=== PATIENT | male | born 1940 | race Caucasian/White ===

== ENCOUNTER 2024-07-23 02:49 | Inpatient (IN) | payer MEDICARE, BC ==
[2024-07-23] MEDS ORDERED: HEPARIN SODIUM 1,000 UN/ML (10ML VL) IV PRN (02:52)
[2024-07-23] MEDS ORDERED: MORPHINE SULFATE 4 MG/ML SYRINGE IV PRN (02:52)
--- NOTE | 2024-07-23 02:55 | ED ---
Chest Pain HPI - General Stated Complaint: chest pain Time Seen by Provider: 07/23/24 02:52 Source: RN notes reviewed, old records reviewed Mode of arrival: EMS Limitations: no limitations - History of Present Illness Initial Comments: This is an 84 male to ER patient presents by EMS for chest pain chest pain evaluation with persistent chest pain that woke him up from sleep. History of high blood pressure no history of heart disease MD Complaint: chest pain -: hour(s) Onset: awoke with symptoms Pain Location: substernal, left chest Pain Radiation: LUE Severity: severe Severity scale (1-10): 8 Quality: tightness, heaviness Consistency: constant Improves With: nothing Worsens With: nothing Anginal Symptoms: sense of impending doom Other Symptoms: palpitations Treatments Prior to Arrival: none - Related Data Home Medications Medication Instructions Recorded Confirmed Ergocalciferol (Vitamin D2) 1,250 mcg PO Q14D 07/23/24 07/23/24 [Drisdol (50,000 Iu)] NIFEdipine XL [Procardia Xl] 30 mg PO DAILY 07/23/24 07/23/24 Simvastatin [Zocor] 20 mg PO HS 07/23/24 07/23/24 Tamsulosin [Flomax] 0.4 mg PO HS 07/23/24 07/23/24 Ubidecarenone [Q-Sorb Co Q-10] 200 mg PO DAILY 07/23/24 07/23/24 Vit C/E/Zn/Coppr/Lutein/Zeaxan 1 cap PO DAILY 07/23/24 07/23/24 [Preservision Areds 2 Softgel] atenoloL 100 mg PO DAILY 07/23/24 07/23/24 lisinopriL [Zestril] 20 mg PO DAILY 07/23/24 07/23/24 Allergies Allergy/AdvReac Type Severity Reaction Status Date / Time No Known Allergies Allergy Verified 07/23/24 09:24 Review of Systems ROS Statement: Those systems with pertinent positive or pertinent negative responses have been documented in the HPI. ROS Other: All systems not noted in ROS Statement are negative. EKG Findings - EKG Comments: EKG Findings:: EKG is ST elevated [place] rate [address] elevation 2 3 aVF reciprocal depression anterior root QRS 97 QTc 447 - EKG Results: EKG: interpreted by ERMD EKG shows: bradycardia General Exam General appearance: alert, in no apparent distress Head exam: Present: atraumatic, normocephalic, normal inspection Eye exam: Present: normal appearance, PERRL, EOMI. Absent: scleral icterus, conjunctival injection, periorbital swelling ENT exam: Present: normal exam, mucous membranes moist Neck exam: Present: normal inspection. Absent: tenderness, meningismus, lymphadenopathy Respiratory exam: Present: normal lung sounds bilaterally. Absent: respiratory distress, wheezes, rales, rhonchi, stridor Cardiovascular Exam: Present: regular rate, normal rhythm, normal heart sounds. Absent: systolic murmur, diastolic murmur, rubs, gallop, clicks GI/Abdominal exam: Present: soft, normal bowel sounds. Absent: distended, tenderness, guarding, rebound, rigid Extremities exam: Present: normal inspection, full ROM, normal capillary refill. Absent: tenderness, pedal edema, joint swelling, calf tenderness Back exam: Present: normal inspection Neurological exam: Present: alert, oriented X3, CN II-XII intact Psychiatric exam: Present: normal affect, normal mood Skin exam: Present: warm, dry, intact, normal color. Absent: rash Course Vital Signs 07/23/24 07/23/24 07/23/24 02:50 02:55 03:01 Temperature 97.6 F Pulse Rate 47 L 48 L 49 L Respiratory 18 18 18 Rate Blood Pressure 120/61 122/52 122/53 O2 Sat by Pulse 99 97 97 Oximetry 07/23/24 07/23/24 07/23/24 03:05 03:10 03:15 Temperature Pulse Rate 53 L 46 L 44 L Respiratory 16 18 16 Rate Blood Pressure 105/46 99/49 98/50 O2 Sat by Pulse 98 97 98 Oximetry 07/23/24 03:20 Temperature Pulse Rate 47 L Respiratory 16 Rate Blood Pressure 103/67 O2 Sat by Pulse 97 Oximetry - Reevaluation(s) Reevaluation #1: 07/23/24 03:22 Medical records reviewed Reevaluation #2: 07/23/24 03:22 Patient still with chest pain here in the ER Reevaluation #3: 07/23/24 03:23 Patient informed of results questions answered Reevaluation #4: Was pt. sent in by a medical professional or institution (, PA, SENIOR MOBILE WEB DEVELOPER, urgent care, hospital, or usp...) When possible be specific @ -no Did you speak to anyone other than the patient for history (EMS, parent, family, police, friend...)? What history was obtained from this source @ -no Did you review nursing and triage notes (agree or disagree)? Why? @ -agree Are old charts reviewed (outside hosp., previous admission, EMS record, old EKG, old radiological studies, urgent care reports/EKG's, usp records)? Report findings @ -yes Differential Diagnosis (chest pain, altered mental status, abdominal pain women, abdominal pain men, vaginal bleeding, weakness, fever, dyspnea, syncope, headache, dizziness, GI bleed, back pain, seizure, CVA, palpatations, mental health, musculoskeletal)? @ -prior EKG interpreted by me (3pts min.). @ -yes X-rays interpreted by me (1pt min.). @ -yes negative for acute disease CT interpreted by me (1pt min.). @ -no U/S interpreted by me (1pt. min.). @ -no What testing was considered but not performed or refused? (CT, X-rays, U/S, labs)? Why? @ -none What meds were considered but not given or refused? Why? @ -none Did you discuss the management of the patient with other professionals (professionals i.e. , PA, SENIOR MOBILE WEB DEVELOPER, lab, RT, psych nurse, aids social worker, rehab consultant, te acher, chief sustainability officer, case manager specialist)? Give summary @ -no Was smoking cessation discussed for >3mins.? @ -no Was critical care preformed (if so, how long)? @ -yes31 Were there social determinants of health that impacted care today? How? (Homelessness, low income, unemployed, alcoholism, drug addiction, transportation, low edu. Level, literacy, decrease access to med. care, [facility], rehab)? @ -none Was there de-escalation of care discussed even if they declined (Discuss DNR or withdrawal of care, Hospice)? DNR status @ -no What co-morbidities impacted this encounter? (DM, HTN, Smoking, COPD, CAD, Cancer, CVA, ARF, Chemo, Hep., AIDS, mental health diagnosis, sleep apnea, morbid obesity)? @ -none Was patient admitted / discharged? Hospital course, mention meds given and route, prescriptions, significant lab abnormalities, going to OR and other pertinent info. @ - 84 male with history of high blood pressure coming in for acute ST elevated [place] chest pain awoke from sleep patient going to the cardiac Plant Security Guard Admitted Undiagnosed new problem with uncertain prognosis? @ -no Drug Therapy requiring intensive monitoring for toxicity (Heparin, Nitro, Insulin, Cardizem)? @ -no Were any procedures done? @ -no Diagnosis/symptom? @ -STEMI Acute, or Chronic, or Acute on Chronic? @ -Acute Uncomplicated (without systemic symptoms) or Complicated (systemic symptoms)? @ -Complicated Side effects of treatment? @ -no Exacerbation, Progression, or Severe Exacerbation? @ -exacerbation Poses a threat to life or bodily function? How? (Chest pain, [place], [place], pneumonia, PE, COPD, DKA, ARF, appy, cholecystitis, CVA, Diverticulitis, Homicidal, Suicidal, threat to staff... and all critical care pts) @ -yes acute ACS Reevaluation #5: Differential Chest Pain: Stable Angina, Unstable Angina, STEMI, NSTEMI Aortic Dissection, Pneumothorax, Musculoskeletal, Esophageal Spasm GERD, Cholecystitis, Pancreatitis, Zoster, this is not meant to be an all-inclusive list. - Consultations Consultation #1: Spoke with [facility] who agrees to admit this patient Chest Pain MDM - [facility] 84 male with history of high blood pressure coming in for acute ST elevated [place] chest pain awoke from sleep patient going to the cardiac Plant Security Guard Critical Care Time Critical Care Time: Yes Total Critical Care Time: 31 Disposition Clinical Impression: Chest pain, ST elevation myocardial infarction (STEMI) Disposition: ADMITTED IP TO THIS HOSP Condition: Serious Is patient prescribed a controlled substance at d/c from ED?: No Time of Disposition: 03:00
[2024-07-23] MEDS: ASPIRIN 81 MG PO STA (02:58)
[2024-07-23] MEDS: NITROGLYCERIN OINT 1 INCH/GM PACKET TOPICAL STA (02:59)
[2024-07-23] MEDS: ATORVASTATIN 80 MG TAB PO STA (02:59)
[2024-07-23] MEDS: MORPHINE SULFATE 4 MG/ML SYRINGE IV STA (02:59)
[2024-07-23] MEDS: HEPARIN SODIUM 1,000 UN/ML (10ML VL) IV ONE ×2 (03:00→03:48)
[2024-07-23 03:12] LABS: Basophils % (A) 0.6 %; Eosinophils # (A) 0.55 10*3/uL (0.04-0.35); Eosinophils % (A) 3.3 %; HCT 36.8 % (39.6-50.0); HGB 12.7 g/dL (13.0-17.0); Lymphocytes # (A) 4.69 10*3/uL (0.90-5.00); Lymphocytes % (A) 28.2 %; MCH 30.5 pg (27.0-32.0); MCHC 34.5 g/dL (32.0-37.0); MCV 88.5 fL (80.0-97.0); Mean Platelet Volume 9.2 fL (9.5-12.2); Monocytes # (A) 1.41 10*3/uL (0.20-1.00); Monocytes % (A) 8.5 %; Neutrophils # (A) 9.78 10*3/uL (1.80-7.70); Neutrophils % (A) 58.9 %; Platelet Count 265 10*3/uL (140-440); RBC 4.16 10*6/uL (4.40-5.60); RDW 13.4 % (11.5-14.5); WBC 16.62 10*3/uL (4.50-10.00)
[2024-07-23] MEDS: IV FLUID CONTINUATION 1,000 ML IV ONE (03:28)
--- NOTE | 2024-07-23 03:33 | P.CRDCN ---
History of Present Illness Consult date: 07/23/24 History of present illness: History of Present Illness: The patient is an 84-year-old male with a history of hypertension who presented with sudden onset chest discomfort radiating to the shoulder, not associated with any symptoms. In the emergency room he was found to have evidence of acute inferior wall myocardial infarction. Patient denies any prior history of CAD. He denies any exertional dyspnea or chest discomfort at baseline. He has no history of PND, orthopnea or peripheral edema. He has sinus bradycardia on presentation. He is a non-smoker and has no other cardiac past history. Medications: Blood pressure medication, he cannot recall Review of Systems: Respiratory: No history of asthma, bronchitis or recent cough. GI: No nausea or vomiting . No history of peptic ulcer disease. No recent GI bleed. : No hematuria or dysuria. Nervous System: No stroke or seizure. Physical Examination: 84-year-old male, alert oriented, having discomfort in the chest, hard of hearing. Evaluated in the cardiac catheterization laboratory,Blood pressure 103/70, Heart rate 48 Head: Normocephalic. Eyes: Sclerae nonicteric. Neck: Good carotid upstroke, no bruit, no jugular venous distention. Lungs: Clear to auscultation. Heart: Regular rate and rhythm, S1-S2, no S3, no rub. Systolic ejection murmur. Abdomen: Soft nontender, positive bowel sounds no organomegaly. Extremities: No edema, intact distal pulses. Labs: Hemoglobin 12.7, with WBC 16.6 EKG: Sinus mechanism with sinus bradycardia ST segment elevation to [address] depression in V1 and V2 consistent with inferior myocardial infarction and reciprocal changes Impression: 1. Acute inferolateral myocardial infarction 2. Sinus bradycardia 3. History of hypertension Plan: 1. Proceed with emergent coronary angiography, the risks and the complications were discussed with the patient who was in full agreement and understanding 2. Obtain an echocardiogram with Doppler 3. Depending on the results of the testing further recommendations will be made 4. Thank you for this consult we will follow with you Past Medical History Past Medical History: Hypertension Additional Past Medical History / Comment(s): skin cancer History of Any Multi-Drug Resistant Organisms: None Reported Smoking Status: Former smoker Past Alcohol Use History: Daily Past Drug Use History: None Reported Medications and Allergies Allergies Allergy/AdvReac Type Severity Reaction Status Date / Time No Known Allergies Allergy Verified 07/23/24 02:56 Physical Exam Vitals: Vital Signs Temp Pulse Resp BP Pulse Ox 07/23/24 03:20 47 L 16 103/67 97 07/23/24 03:15 44 L 16 98/50 98 07/23/24 03:10 46 L 18 99/49 97 07/23/24 03:05 53 L 16 105/46 98 07/23/24 03:01 49 L 18 122/53 97 07/23/24 02:55 48 L 18 122/52 97 07/23/24 02:50 97.6 F 47 L 18 120/61 99 Intake and Output 07/22/24 07/22/24 07/23/24 14:59 22:59 06:59 Other: Weight 69.4 kg Results 07/23/24 02:57 CBC 07/23/24 Range/Units 02:57 WBC 16.62 H (4.50-10.00) 10*3/uL RBC 4.16 L (4.40-5.60) 10*6/uL Hgb 12.7 L (13.0-17.0) g/dL Hct 36.8 L (39.6-50.0) % Plt Count 265 (140-440) 10*3/uL Current Medications Generic Name Dose Route Start Last Admin Trade Name Freq PRN Reason Stop Dose Admin Aspirin 325 mg 07/24/24 09:00 Aspirin 325 Mg Tab PO DAILY [facility] Heparin Sodium (Porcine) 0 unit 07/23/24 02:52 Heparin Sodium 1,000 Un/Ml (10ml Vl) IV Q6HR PRN Low PTT Protocol Sodium Chloride 1,000 mls @ 20 mls/hr 07/23/24 02:52 Saline 0.9% IV 07/24/24 02:51 .Q24H STA Heparin Sodium/Sodium Chloride 250 mls @ 8.328 mls/hr 07/23/24 03:00 25,000 unit/ Sodium Chloride IV .Q24H [facility] Protocol 12 UNITS/KG/HR Morphine Sulfate 4 mg 07/23/24 02:52 Morphine Sulfate 4 Mg/Ml Syringe IV Q4HR PRN Chest Pain Intake and Output 07/22/24 07/22/24 07/23/24 14:59 22:59 06:59 Other: Weight 69.4 kg Patient Weight 07/23/24 06:59 Weight 69.4 kg 07/23/24 02:57
[2024-07-23] MEDS: fentaNYL (PF) 50 MCG/ML 2 ML AMP IVP ONE (03:38)
[2024-07-23] MEDS: LIDOCAINE 1% INJ 10MG/ML (20 ML MDV) SQ ONE (03:39)
[2024-07-23] MEDS: VERAPAMIL SYRINGE (5 MG/10 ML) INTRAARTER ONE (03:41)
[2024-07-23 03:42] LABS: ALT 36 U/L (4-49); AST 60 U/L (17-59); African American GFR (CKD) 84 (>60 ml/min/1.73 sqM); Albumin 3.9 g/dL (3.5-5.0); Alkaline Phosphatase 53 U/L (38-126); Anion Gap 12 mmol/L; Blood Urea Nitrogen 18 mg/dL (9-20); Calcium 9.6 mg/dL (8.4-10.2); Carbon Dioxide 24 mmol/L (22-30); Chloride 97 mmol/L (98-107); Glucose 166 mg/dL (74-99); Lipase 104 U/L (23-300); Magnesium 1.8 mg/dL (1.6-2.3); Non-African American GFR(CKD) 73 (>60 ml/min/1.73 sqM); Potassium 3.6 mmol/L (3.5-5.1); Sodium 133 mmol/L (137-145); Total Bilirubin 0.5 mg/dL (0.2-1.3); Total Protein 6.6 g/dL (6.3-8.2)
[2024-07-23 03:45] LABS: INR 0.9 (<1.2); Prothrombin Time 10.6 sec (10.0-12.5)
--- NOTE | 2024-07-23 03:48 | XR ---
EXAM: XR Chest, 1 View CLINICAL HISTORY: Chest pain TECHNIQUE: Frontal view of the chest. COMPARISON: No relevant prior studies available. FINDINGS: Heart is mildly enlarged. Pulmonary vessels are mildly engorged. No focal infiltrate. No pleural effusion or pneumothorax. Bones are unremarkable. IMPRESSION: Cardiomegaly. Mild pulmonary vascular congestion.
[2024-07-23 03:49] LABS: NT-Pro-B-Type Natriuretic Pept 2920 pg/mL
[2024-07-23] MEDS: TICAGRELOR 90 MG TAB PO ONE ×2 (03:50→04:17)
[2024-07-23 04:16] LABS: Partial Thromboplastin Time 20.1 sec (22.0-30.0)
[2024-07-23] MEDS: IOPAMIDOL-370 100ML BTL INJ ONE ×2 (04:25→04:56)
[2024-07-23] MEDS ORDERED: NITROGLYCERIN SL TABS 0.4 MG TAB SUBLINGUAL PRN (05:09)
[2024-07-23] MEDS ORDERED: RX INFO: IV CONTRAST WAS GIVEN 1 EACH MISC MISCELLANE PRN (05:09)
[2024-07-23] MEDS ORDERED: MAG HYDROX/AL HYDROX/SIMETH 30 ML CUP PO PRN (05:09)
[2024-07-23] MEDS ORDERED: ATROPINE SULFATE 0.1 MG/ML 10ML SYRINGE IV PRN (05:09)
--- NOTE | 2024-07-23 05:20 | P.CARDCATH ---
Date of Procedure: 07/23/24 Description of Procedure: Cardiac Catheterization: The patient is an 84-year-old male with a history of hypertension who presented with an acute onset chest discomfort with ST elevation in the inferior leads and ST depression in the precordial anterior leads. He was noted to be in atrial fibrillation of unknown duration. Recommendations were made regarding cardiac catheterization, the risks and the complications were discussed with the patient who is in full understanding and agreement. Procedure Description: Patient was brought to excavation laborer in fasting semi-sedated state after receiving Fentanyl and Benadryl achieiving moderate conscious sedated state. Using Xylocaine Anesthesia and modified Seldinger technique, a 6-Honduran sheath was introduced in the right radial artery . Subsequently, selective coronary angiography was performed using a 5-Honduran 3.5 bend left Maya catheter and 6 Honduran 4 bend right Maya guiding catheter. Multiple views of the coronary artery including hemiaxial views were obtained. The 5 Honduran pigtail catheter was used to cross the aortic valve and LVEDP was calculated. PCI: Using the 6 [place]uran 4 bend right Maya guiding catheter and after cannulating the right coronary ostium a 0.014 BMW J-wire with the help of a super cross microcatheter were used to cross the lesion and positioned distally. Subsequently a 2.5 x 12 mm trek balloon was advanced and multiple inflations in the distal segment up to 10 shirlene were done. Subsequently the balloon was removed , attempt to advance a [employer] eye IVUS catheter with the help of a guide liner were unsuccessful because of the calcification and tortuosity in the proximal mid segment. At that time the IVUS catheter was removed and a 3.0 x 18 mm Xience [place] point stent was advanced and deployed at 16 shirlene. Subsequently using the super cross microcatheter and a whisper 0.014 J-wire was advanced into the system and the wire was advanced to the PDA. A 2.0 x 12 mm trek balloon was advanced and multiple inflation at the ostium of the PDA was performed. Subsequently the whisper J-wire was removed and the guide liner was readvanced and with the help of the guide liner a 3.25 x 8 mm Xience Skypoint stent was deployed proximal to the first 1 at 16 shirlene. An inflation in the overlapping segment was performed. Subsequently the wire and the balloon was removed images were obtained and revealed successful stenting. Following that, catheter and sheath were removed. Hemostasis was obtained with deployment of vascular band . There was no immediate complication. Patient was returned to room in stable condition. Of note, the patient received a total of 6000 units of intravenous heparin as well as intra-arterial verapamil. He received an oral loading dose of ticagrelor. His ACT was monitored. He had no chest discomfort at the end of the procedure and his EKG changes resolved. Findings: Severe calcifications of the coronary arteries was noted and calcification of the right brachial artery Left main: This is a large size vessel, bifurcating into LAD and left circumflex, left main has no significant obstructive disease LAD: This is a large size vessel, reaching to the apex, giving rise to 2 diagonal branch, the second 1 is large in caliber. The mid LAD after the takeoff of the first septal plant quality manager has a 50% plaque the rest of the vessel has no high-grade stenosis Left circumflex: This is a large nondominant vessel giving rise to a large obtuse marginal branch, the left circumflex has no obstructive disease RCA: This vessel is dominant, calcified. There was minimal antegrade flow in the midsegment with totally occluded distally. Left Ventriculogram: Not performed Hemodynamics: There was no gradient across the aortic valve, LVEDP was 14-16 mmHg Conclusion: 1. Calcified coronary arteries and right brachial artery 2. Acutely occluded distal RCA 3. Moderate disease in the mid LAD 4. Successful stenting of the distal RCA with reduction of stenosis from 100% to less than 5% with BLAYNE-3 flow in the PLV. There was evidence of a lesion at the ostium of the PDA with BLAYNE-3 flow. The possibility of a thrombotic occlusion in the distal segment of the PDA cannot be excluded Recommendations: The patient will continue on aspirin and ticagrelor with no interruption for 1 y ear. If he remains in atrial fibrillation anticoagulation will be initiated and the aspirin will be stopped. Aggressive coronary risks modification including attempt to maintain LDL to below 70 mg/dL will be initiated. The findings and the recommendations were discussed with the patient and the family and they were in full understanding and agreement. Duration of sedation is 81 minutes.
[2024-07-23 05:24] LABS: Glucose,Whole Blood 166 mg/dL (70-110)
[2024-07-23] MEDS: METOPROLOL TARTRATE 25 MG TAB PO SCH ×2 (05:43→21:17)
[2024-07-23] MEDS: SODIUM CHLORIDE 0.9% 1,000 ML in EMPTY BAG 1 BAG IV SCH (05:44)
[2024-07-23] MEDS: HEPARIN SOD,PORK IN 0.45% NACL 25,000 UNIT in 0.45% NACL 1 250ML.BAG IV SCH (05:44)
[2024-07-23] MEDS: SODIUM CHLORIDE 0.9% 1,000 ML IV STA (07:05)
[2024-07-23] MEDS ORDERED: Magnesium Replacement Protocol 1 EACH MISC MISCELLANE PRN (09:05)
[2024-07-23] MEDS ORDERED: Potassium Replacement Protocol 1 EACH MISC MISCELLANE PRN (09:05)
[2024-07-23] MEDS: ASPIRIN 81 MG PO SCH (09:19)
[2024-07-23] MEDS: POTASSIUM CHLORIDE 10 MEQ in WATER FOR INJECTION 1 100ML.BAG IVPB SCH (09:21)
[2024-07-23] MEDS: TICAGRELOR 90 MG TAB PO SCH (09:30)
[2024-07-23] MEDS: MAGNESIUM SULFATE-D5W PMX 1 GM in DEXTROSE/WATER 1 100ML.BAG IVPB ONE (11:10)
--- NOTE | 2024-07-23 11:48 | P.HPIM ---
History of Present Illness Patient 84-year-old male came with complaints of typical chest pain radiating to the shoulder found to be in ST elevation [place] in anteroinferiorly patient underwent cardiac authorization and stenting to RCA patient received 2 stents. Patient denied fever chills nausea vomiting abdominal pain dysuria at this time. Patient is otherwise clinically doing well patient denied any chest pain at this time patient has elevated troponin of 77. He had sinus bradycardia on presentation. REVIEW OF SYSTEMS: All other systems are negative except those mentioned in the HPI PHYSICAL EXAMINATION: GENERAL: The patient is alert and oriented x3, not in any acute distress. Well developed, well nourished. HEENT: Pupils are round and equally reacting to light. EOMI. No scleral icterus. No conjunctival pallor. Normocephalic, atraumatic. No pharyngeal erythema. No thyromegaly. CARDIOVASCULAR: S1 and S2 present. No murmurs, rubs, or gallops. PULMONARY: Chest is clear to auscultation, no wheezing or crackles. ABDOMEN: Soft, nontender, nondistended, normoactive bowel sounds. No palpable organomegaly. MUSCULOSKELETAL: No joint swelling or deformity. EXTREMITIES: No cyanosis, clubbing, or pedal edema. NEUROLOGICAL: Gross neurological examination did not reveal any focal deficits. SKIN: No rashes. Assessment and plan -Acute non-ST elevation [place]: Patient had received 2 stents patient is on dual antiplatelet therapy simvastatin beta-trang. - For lipidemia hypertension - Benign prostatic hypertrophy For above-mentioned chronic medical problems patient will be resumed on appropriate home medications Past Medical History Past Medical History: Hyperlipidemia, Hypertension, Osteoarthritis (OA), Prostate Disorder Additional Past Medical History / Comment(s): skin cancer, wet mac degeneration with bilateral injections. Previous cataracts, prostate CA with radiation and seeds approx 20 years ago. History of Any Multi-Drug Resistant Organisms: None Reported Past Surgical History: Heart Catheterization With Stent Past Anesthesia/Blood Transfusion Reactions: No Reported Reaction Date of Last Stent Placement:: 07-23-24 Smoking Status: Former smoker Past Alcohol Use History: Daily Past Drug Use History: None Reported Medications and Allergies Home Medications Medication Instructions Recorded Confirmed Type Ergocalciferol (Vitamin D2) 1,250 mcg PO Q14D 07/23/24 07/23/24 History [Drisdol (50,000 Iu)] NIFEdipine XL [Procardia Xl] 30 mg PO DAILY 07/23/24 07/23/24 History Simvastatin [Zocor] 20 mg PO HS 07/23/24 07/23/24 History Tamsulosin [Flomax] 0.4 mg PO HS 07/23/24 07/23/24 History Ubidecarenone [Q-Sorb Co Q-10] 200 mg PO DAILY 07/23/24 07/23/24 History Vit C/E/Zn/Coppr/Lutein/Zeaxan 1 cap PO DAILY 07/23/24 07/23/24 History [Preservision Areds 2 Softgel] atenoloL 100 mg PO DAILY 07/23/24 07/23/24 History lisinopriL [Zestril] 20 mg PO DAILY 07/23/24 07/23/24 History Allergies Allergy/AdvReac Type Severity Reaction Status Date / Time No Known Allergies Allergy Verified 07/23/24 09:24 Physical Exam Vitals: Vital Signs Temp Pulse Pulse Resp BP Pulse Ox 07/23/24 10:00 107 H 16 151/84 96 07/23/24 09:30 101 H 12 149/85 96 07/23/24 09:00 120 H 14 159/88 96 07/23/24 08:30 112 H 15 129/82 99 07/23/24 08:00 98.1 F 92 14 145/89 96 07/23/24 07:30 92 13 136/94 07/23/24 07:00 110 H 15 124/82 96 07/23/24 06:50 116 H 16 98 07/23/24 06:49 116 H 19 07/23/24 06:40 101 H 12 124/82 96 07/23/24 06:30 97 13 119/75 96 07/23/24 06:20 101 H 16 119/75 95 07/23/24 06:10 98 20 119/75 96 07/23/24 06:00 99 14 139/78 95 07/23/24 05:50 109 H 11 L 139/78 96 07/23/24 05:40 113 H 15 139/78 95 07/23/24 05:30 140 H 18 137/78 93 L 07/23/24 05:24 97.8 F 18 142/87 93 L 07/23/24 03:20 47 L 16 103/67 97 07/23/24 03:15 44 L 16 98/50 98 07/23/24 03:10 46 L 18 99/49 97 07/23/24 03:05 53 L 16 105/46 98 07/23/24 03:01 49 L 18 122/53 97 07/23/24 02:55 48 L 18 122/52 97 07/23/24 02:50 97.6 F 47 L 18 120/61 99 Intake and Output 07/22/24 07/23/24 07/23/24 22:59 06:59 14:59 Intake Total 1569.4 379.4 Output Total 0 50 Balance 1569.4 329.4 Intake: IV 800 210 1ml/kg x12hrs) 210 Intake, IV Titration 669.4 169.4 Amount Heparin Sod,Pork in 0.45% 600 NaCl 25,000 unit In 0.45 % NaCl 1 250ml.bag @ 12 UNITS/KG/HR 8.328 mls/hr IV .Q24H [facility] Rx#: [id number] Potassium Chloride 10 meq 100 In Water For Injection 1 100ml.bag @ 100 mls/hr IVPB Q1H [facility]GO Rx#: [id number] Sodium Chloride 0.9% 1, 69.4 69.4 000 ml In Empty Bag 1 bag @ 1 ML/KG/HR 69.4 mls/hr IV .[id number] [facility]GO Rx#: [id number] Oral 100 Output: Urine 0 50 Other: Voiding Method Urinal Urinal Weight 69.4 kg Results CBC & Chem 7: 07/23/24 02:57 07/23/24 02:57 Labs: Abnormal Lab Results - Last 24 Hours (Table) 07/23/24 07/23/24 07/23/24 Range/Units 02:57 02:57 02:57 WBC 16.62 H (4.50-10.00) 10*3/uL RBC 4.16 L (4.40-5.60) 10*6/uL Hgb 12.7 L (13.0-17.0) g/dL Hct 36.8 L (39.6-50.0) % MPV 9.2 L (9.5-12.2) fL Immature Gran # 0.09 H (0.00-0.04) 10*3/uL Neutrophils # 9.78 H (1.80-7.70) 10*3/uL Monocytes # 1.41 H (0.20-1.00) 10*3/uL Eosinophils # 0.55 H (0.04-0.35) 10*3/uL APTT 20.1 L (22.0-30.0) sec Sodium 133 L (137-145) mmol/L Chloride 97 L (98-107) mmol/L Glucose 166 H (74-99) mg/dL POC Glucose (mg/dL) (70-110) mg/dL AST 60 H (17-59) U/L Troponin I (0.000-0.034) ng/mL 07/23/24 07/23/24 07/23/24 Range/Units 02:57 05:22 07:13 WBC (4.50-10.00) 10*3/uL RBC (4.40-5.60) 10*6/uL Hgb (13.0-17.0) g/dL Hct (39.6-50.0) % MPV (9.5-12.2) fL Immature Gran # (0.00-0.04) 10*3/uL Neutrophils # (1.80-7.70) 10*3/uL Monocytes # (0.20-1.00) 10*3/uL Eosinophils # (0.04-0.35) 10*3/uL APTT (22.0-30.0) sec Sodium (137-145) mmol/L Chloride (98-107) mmol/L Glucose (74-99) mg/dL POC Glucose (mg/dL) 166 H (70-110) mg/dL AST (17-59) U/L Troponin I 0.073 H* 55.700 H* (0.000-0.034) ng/mL 07/23/24 Range/Units 08:44 WBC (4.50-10.00) 10*3/uL RBC (4.40-5.60) 10*6/uL Hgb (13.0-17.0) g/dL Hct (39.6-50.0) % MPV (9.5-12.2) fL Immature Gran # (0.00-0.04) 10*3/uL Neutrophils # (1.80-7.70) 10*3/uL Monocytes # (0.20-1.00) 10*3/uL Eosinophils # (0.04-0.35) 10*3/uL APTT (22.0-30.0) sec Sodium (137-145) mmol/L Chloride (98-107) mmol/L Glucose (74-99) mg/dL POC Glucose (mg/dL) (70-110) mg/dL AST (17-59) U/L Troponin I 71.000 H* (0.000-0.034) ng/mL Thrombosis Risk Factor Assmnt - Choose All That Apply Any of the Below Risk Factors Present?: Yes Each Factor Represents 1 point: Obesity (BMI >25) Other Risk Factors: Yes Each Risk Factor Represents 3 Points: Age 75 years or older Thrombosis Risk Factor Assessment Total Risk Factor Score: 4 Thrombosis Risk Factor Assessment Level: Moderate Risk
[2024-07-23 13:27] LABS: VLDL Calculation 10.74 mg/dL (5.00-40.00)
[2024-07-23] MEDS: FUROSEMIDE 10 MG/ML 4 ML VIAL IV STA (15:07)
--- NOTE | 2024-07-23 15:13 | XR ---
EXAMINATION TYPE: XR chest 1V portable DATE OF EXAM: 07/23/2024 3:04 PM COMPARISON: None. CLINICAL INDICATION: Male, 84 years old with history of hypoxia; [facility] TECHNIQUE: XR chest 1V portable Frontal view of the chest. FINDINGS: Cardiomegaly and patchy interstitial opacities felt to most likely reflect vascular congestive change s. No sizable pleural effusion. No acute osseous abnormality. No pneumothorax. IMPRESSION: Cardiomegaly and pulmonary vascular congestive changes. [facility], , 07/23/2024 3:10 PM
[2024-07-23] MEDS: DEXTROSE 5% IN WATER 100 ML with AMIODARONE 150 MG IV ONE (15:24)
[2024-07-23] MEDS: AMIODARONE 360 MG in DEXTROSE 5% IN WATER 200 ML IV ONE (15:40)
[2024-07-23] MEDS ORDERED: METOPROLOL TARTRATE 25 MG TAB PO SCH (16:00)
[2024-07-23] MEDS: SPIRONOLACTONE 25 MG TAB PO SCH (16:01)
[2024-07-23 16:50] LABS: Magnesium 2.1 mg/dL (1.6-2.3); Potassium 4.4 mmol/L (3.5-5.1)
[2024-07-23] MEDS: TAMSULOSIN 0.4 MG CAP.ER.24H PO SCH (21:17)
[2024-07-23] MEDS: QUEtiapine 25 MG TAB PO STA (21:18)
[2024-07-23] MEDS: ATORVASTATIN 80 MG TAB PO SCH (21:18)
[2024-07-23] MEDS: AMIODARONE 450 MG in DEXTROSE 5% IN WATER 250 ML IV SCH (21:25)
[2024-07-23 21:54] LABS: Appearance,Urine Clear (Clear); Bilirubin,Urine Negative (Negative); Blood,Urine Negative (Negative); Color,Urine Colorless; Glucose,Urine (UA) Negative (Negative); Ketones,Urine Negative (Negative); Leukocyte Esterase,Urine Negative (Negative); Nitrite,Urine Negative (Negative); Protein,Urine Negative (Negative); Specific Gravity,Urine 1.012 (1.001-1.035); Urobilinogen,Urine <2.0 mg/dL (<2.0)
[2024-07-23] MEDS: ZOLPIDEM 5 MG TAB PO PRN (23:01)
[2024-07-24 06:10] LABS: HCT 36.8 % (39.6-50.0); HGB 12.5 g/dL (13.0-17.0); MCH 30.6 pg (27.0-32.0); Mean Platelet Volume 9.9 fL (9.5-12.2); Platelet Count 190 10*3/uL (140-440); RBC 4.09 10*6/uL (4.40-5.60); RDW 13.7 % (11.5-14.5); WBC 16.51 10*3/uL (4.50-10.00)
[2024-07-24 06:38] LABS: African American GFR (CKD) >90 (>60 ml/min/1.73 sqM); Anion Gap 9 mmol/L; Blood Urea Nitrogen 16 mg/dL (9-20); Calcium 9.3 mg/dL (8.4-10.2); Carbon Dioxide 26 mmol/L (22-30); Chloride 95 mmol/L (98-107); Glucose 111 mg/dL (74-99); Non-African American GFR(CKD) 87 (>60 ml/min/1.73 sqM); Potassium 4.3 mmol/L (3.5-5.1); Sodium 130 mmol/L (137-145)
--- NOTE | 2024-07-24 07:53 | XR ---
EXAMINATION TYPE: XR chest 1V portable DATE OF EXAM: 07/24/2024 4:29 AM COMPARISON: 07/23/2024 CLINICAL INDICATION: Male, 84 years old with history of fluid overload post heart cath, , FINDINGS: Heart remains mildly enlarged. Diffuse interstitial opacities persist. Retrocardiac aeration is worse kristin as is right infrahilar aeration. No sizable pleural effusion. IMPRESSION: Similar interstitial pulmonary edema though with worsening aeration in the retrocardiac region and ri ght infrahilar region. [facility], , 07/24/2024 7:51 AM
[2024-07-24] MEDS: FUROSEMIDE 20 MG TAB PO SCH (08:52)
[2024-07-24] MEDS: APIXABAN 2.5 MG TABLET PO SCH (08:52)
[2024-07-24] MEDS: lisinopriL 5 MG TAB PO SCH (08:52)
[2024-07-24] MEDS ORDERED: ASPIRIN 325 MG TAB PO SCH (09:00)
[2024-07-24 10:21] LABS: Magnesium 1.8 mg/dL (1.6-2.3)
--- NOTE | 2024-07-24 11:01 | P.PN ---
Subjective Patient 84-year-old male came with complaints of typical chest pain radiating to the shoulder found to be in ST elevation [place] in anteroinferiorly patient underwent cardiac authorization and stenting to RCA patient received 2 stents. Patient denied fever chills nausea vomiting abdominal pain dysuria at this time. Patient is otherwise clinically doing well patient denied any chest pain at this time patient has elevated troponin of 77. He had sinus bradycardia on presentation. 07/24/2024 Patient is bit confused secondary to ICU delirium. Patient is in atrial fibrillation with a rapid unclear rate patient was started on amiodarone patient is on beta-trang as well. Patient has mild pulmonary edema is on 2 L of oxygen patient is on 20 p.o. twice daily of Lasix was given a dose of Lasix by cardiology yesterday. Patient denied any chest pain at this time. Cardiogram is still pending. REVIEW OF SYSTEMS: All other systems are negative except those mentioned in the HPI PHYSICAL EXAMINATION: GENERAL: The patient is alert and oriented x3, not in any acute distress. Well developed, well nourished. HEENT: Pupils are round and equally reacting to light. EOMI. No scleral icterus. No conjunctival pallor. Normocephalic, atraumatic. No pharyngeal erythema. No thyromegaly. CARDIOVASCULAR: S1 and S2 present. No murmurs, rubs, or gallops. PULMONARY: Chest is clear to auscultation, no wheezing or crackles. ABDOMEN: Soft, nontender, nondistended, normoactive bowel sounds. No palpable organomegaly. MUSCULOSKELETAL: No joint swelling or deformity. EXTREMITIES: No cyanosis, clubbing, or pedal edema. NEUROLOGICAL: Gross neurological examination did not reveal any focal deficits. SKIN: No rashes. Assessment and plan -Acute non-ST elevation SD: Patient had received 2 stents patient is on dual antiplatelet therapy simvastatin beta-trang. -Atrial fibrillation with rapid unclear rate: Patient is on amiodarone drip at this time and patient was started on Eliquis as well -Leukocytosis probably secondary to [place] patient white count improved although there is no clear evidence of infection at this time we will continue to monitor without any antibiotics at this time. - Acute hypoxic respiratory failure secondary to pulmonary edema congestive heart failure on Lasix as mentioned above - Acute pulmonary edema secondary to acute myocardial infarction with acute exacerbation Hyperlipidemia hypertension - Benign prostatic hypertrophy For above-mentioned chronic medical problems patient was resumed on appropriate home medications Objective - Vital Signs Vital signs: Vital Signs Temp 97.4 F L 07/24/24 08:00 Pulse 111 H 07/24/24 10:00 Resp 14 07/24/24 10:00 BP 130/87 07/24/24 10:00 Pulse Ox 100 07/24/24 10:00 FiO2 4 07/24/24 01:00 Intake & Output 07/23/24 07/24/24 07/24/24 18:59 06:59 18:59 Intake Total 1289.4 991.603 240.837 Output Total 1053 700 Balance 236.4 291.603 240.837 Weight 70.8 kg Intake: IV 520 240 80 1ml/kg x12hrs) 420 KVO 20 80 Sodium Chloride 0.9% 1, 100 220 000 ml @ 20 mls/hr IV . Q24H [facility] Rx#:[id number] Intake, IV Titration 469.4 216.603 160.837 Amount Amiodarone 360 mg In 66.6 Dextrose 5% in Water 200 ml @ 1 MG/MIN 33.333 mls/ hr IV .Q6H [facility] Rx#: [id number] Amiodarone 450 mg In 150.003 160.837 Dextrose 5% in Water 250 ml @ 0.5 MG/MIN 16.667 mls/hr IV .Q15H [facility] Rx#: [id number] Dextrose 5% in Water 100 100 ml @ 618 mls/hr IV .Q10M [facility] with Amiodarone 150 mg Rx#:[id number] Magnesium Sulfate-D5w Pmx 100 1 gm In Dextrose/Water 1 100ml.bag @ 100 mls/hr IVPB ONCE [facility] Rx#: [id number] Potassium Chloride 10 meq 200 In Water For Injection 1 100ml.bag @ 100 mls/hr IVPB Q1H [facility] Rx#: [id number] Sodium Chloride 0.9% 1, 69.4 000 ml In Empty Bag 1 bag @ 1 ML/KG/HR 69.4 mls/hr IV .[id number] [facility] Rx#: [id number] Oral 300 535 Output: Urine 1050 700 Stool 3 Other: Voiding Method Toilet Toilet Toilet Urinal Urinal # Voids 1 - Labs CBC & Chem 7: 07/24/24 05:12 07/24/24 05:21 Labs: Abnormal Lab Results - Last 24 Hours (Table) 07/24/24 07/24/24 Range/Units 05:12 05:21 WBC 16.51 H (4.50-10.00) 10*3/uL RBC 4.09 L (4.40-5.60) 10*6/uL Hgb 12.5 L (13.0-17.0) g/dL Hct 36.8 L (39.6-50.0) % Sodium 130 L (137-145) mmol/L Chloride 95 L (98-107) mmol/L Glucose 111 H (74-99) mg/dL
--- NOTE | 2024-07-24 11:04 | CA ---
Transthoracic Echo Report Name: Epi Lloyd Age: 84 Gender: M : 1940 Exam Date: 07/24/2024 07:40 Exam Location: [place] [facility] Ht (in): 65 Wt (lb): 153 Ordering Physician: Shahzad Martinez MD ([id number]) Attending/Referring Phys: Communication Skills Instructor Mimi Arriola RDCS Procedure CPT: Indications: DC Cardiac Hx: Technical Quality: Fair Contrast 1: Definity Total Dose (mL): 2 Contrast 2: Total Dose (mL): MEASUREMENTS (Male / Female) Normal Values 2D ECHO LV Diastolic Diameter PLAX 5.0 cm 4.2 - 5.9 / 3.9 - 5.3 cm LV Systolic Diameter PLAX 1.6 cm IVS Diastolic Thickness 1.0 cm 0.6 - 1.0 / 0.6 - 0.9 cm LVPW Diastolic Thickness 1.1 cm 0.6 - 1.0 / 0.6 - 0.9 cm LV Relative Wall Thickness 0.4 RV Internal Dim ED PLAX 4.1 cm LVOT Diameter 2.1 cm LA Systolic Diameter LX 4.4 cm 3.0 - 4.0 / 2.7 - 3.8 cm LV Diastolic Volume MOD BP 77.5 cm??? 67 - 155 / 56 - 104 cm??? LV Systolic Volume MOD BP 46.1 cm??? 22 - 58 / 19 - 49 cm??? LV Ejection Fraction MOD BP 40.5 % >= 55 % LV Cardiac Index MOD BP 1588.0 cm???/min???m??? LV Diastolic Volume MOD 4C 78.5 cm??? LV Systolic Volume MOD 4C 68.2 cm??? LV Ejection Fraction MOD 4C 13.2 % LV Cardiac Index MOD 4C 524.1 cm???/min???m??? LV Diastolic Length 4C 8.6 cm LV Systolic Length 4C 8.2 cm LV Diastolic Volume MOD 2C 72.6 cm??? LV Systolic Volume MOD 2C 28.6 cm??? LV Ejection Fraction MOD 2C 60.7 % LV Cardiac Index MOD 2C 2233.0 cm???/min???m??? LV Diastolic Length 2C 7.6 cm LV Systolic Length 2C 7.3 cm M-MODE Aortic Root Diameter MM 3.3 cm DOPPLER AV Peak Velocity 124.8 cm/s AV Peak Gradient 6.2 mmHg AI Peak Velocity 320.1 cm/s AI Peak Gradient 41.0 mmHg AI Pressure Half Time 733.8 ms MV Area PHT 4.3 cm??? TR Peak Velocity 305.3 cm/s TR Peak Gradient 37.3 mmHg Right Ventricular Systolic Press 47.3 mmHg FINDINGS Left Ventricle Left ventricular ejection fraction is estimated at 25-30 %. Moderately decreased left ventricular ejection fraction. Left ventricular cavity size normal. Left ventricular wall thickness normal. Right Ventricle RV is poorly visualized. Moderate pulmonary hypertension. Right Atrium Mild right atrial dilatation. No right atrial thrombus or mass seen. Left Atrium Mildly increased left atrial diameter. No left atrial thrombus or mass present. Mitral Valve Structurally normal mitral valve. Mitral annular calcification. Trace to mild mitral regurgitation. Aortic Valve Thickened aortic valve without stenosis. No aortic valve stenosis or regurgitation. Tricuspid Valve Structurally normal tricuspid valve. Trace to mild tricuspid regurgitation. Pulmonic Valve Structurally normal pulmonic valve. No pulmonic regurgitation. Pericardium No pericardial effusion. Aorta Normal size aortic root and proximal ascending aorta. CONCLUSIONS Left ventricular ejection fraction is estimated at 25-30 %. Moderately decreased global left ventricular ejection fraction. Mild biatrial dilatation Moderate pulmoanry HTN with RVSP estimated at 47 mmHg Mild Mitral regurgitation, mild tricuspid regurgitation Previewed by: Dr Rhys Ross (Electronically Signed) Final Date: 24 July 2024 11:03
[2024-07-24 13:10] VITALS: BMI 25.9
--- NOTE | 2024-07-24 15:49 | P.PN ---
Subjective History of Present Illness: The patient is an 84-year-old male with a history of hypertension who presented with sudden onset chest discomfort radiating to the shoulder, not associated with any symptoms. In the emergency room he was found to have evidence of acute inferior wall myocardial infarction. Patient denies any prior history of CAD. He denies any exertional dyspnea or chest discomfort at baseline. He has no history of PND, orthopnea or peripheral edema. He has sinus bradycardia on presentation. He is a non-smoker and has no other cardiac past history. Medications: Blood pressure medication, he cannot recall 07/24 Patient seen and examined. Patient denies any chest pain or pressure. No significant shortness of breath. He underwent left heart catheterization which showed 100% stenosis of the distal RCA and mild to moderate disease of the left. Echocardiogram showed EF 25 to 30% with mild mitral regurgitation and RVSP 47. Physical Examination: 84-year-old male, alert oriented, having discomfort in the chest, hard of hearing. Evaluated in the cardiac catheterization laboratory,Blood pressure 103/70, Heart rate 48 Head: Normocephalic. Eyes: Sclerae nonicteric. Neck: Good carotid upstroke, no bruit, no jugular venous distention. Lungs: Clear to auscultation. Heart: Regular rate and rhythm, S1-S2, no S3, no rub. Systolic ejection murmur. Abdomen: Soft nontender, positive bowel sounds no organomegaly. Extremities: No edema, intact distal pulses. Labs: Hemoglobin 12.7, with WBC 16.6 EKG: Sinus mechanism with sinus bradycardia ST segment elevation to [address] depression in V1 and V2 consistent with inferior myocardial infarction and reciprocal changes Impression: 1. Acute inferolateral myocardial infarction s/p PCI RCA 2. Persistent Afib 3. History of hypertension 4. Ischemic cardiomyopathy with EF 25-30% 5. Chronic systolic heart failure Plan: Continue with dual antiplatelets including aspirin and Brilinta. Stop amiodarone. Continue triple therapy for now however likely stop aspirin upon discharge. Optimize heart failure regimen as able. Okay for transfer from ICU. Objective - Vital Signs Vital signs: Vital Signs Temp 98.0 F 07/24/24 12:00 Pulse 73 07/24/24 15:00 Resp 15 07/24/24 15:00 BP 157/105 07/24/24 15:00 Pulse Ox 99 07/24/24 15:00 FiO2 4 04/14/25 01:00 Intake & Output 07/23/24 07/24/24 07/24/24 18:59 06:59 18:59 Intake Total 1289.4 991.603 340.837 Output Total 1053 700 525 Balance 236.4 291.603 -184.163 Weight 70.8 kg 70.8 kg Intake: IV 520 240 180 1ml/kg x12hrs) 420 KVO 20 180 Sodium Chloride 0.9% 1, 100 220 000 ml @ 20 mls/hr IV . Q24H [facility] Rx#:[id number] Intake, IV Titration 469.4 216.603 160.837 Amount Amiodarone 360 mg In 66.6 Dextrose 5% in Water 200 ml @ 1 MG/MIN 33.333 mls/ hr IV .Q6H [facility] Rx#: [id number] Amiodarone 450 mg In 150.003 160.837 Dextrose 5% in Water 250 ml @ 0.5 MG/MIN 16.667 mls/hr IV .Q15H [facility] Rx#: [id number] Dextrose 5% in Water 100 100 ml @ 618 mls/hr IV .Q10M ONE with Amiodarone 150 mg Rx#:[id number] Magnesium Sulfate-D5w Pmx 100 1 gm In Dextrose/Water 1 100ml.bag @ 100 mls/hr IVPB ONCE [facility] Rx#: [id number] Potassium Chloride 10 meq 200 In Water For Injection 1 100ml.bag @ 100 mls/hr IVPB Q1H [facility] Rx#: [id number] Sodium Chloride 0.9% 1, 69.4 000 ml In Empty Bag 1 bag @ 1 ML/KG/HR 69.4 mls/hr IV .[id number] [facility] Rx#: [id number] Oral 300 535 Output: Urine 1050 700 525 Stool 3 Other: Voiding Method Toilet Toilet Toilet Urinal Urinal # Voids 1 1 - Labs CBC & Chem 7: 07/24/24 05:12 07/24/24 05:21 Labs: Abnormal Lab Results - Last 24 Hours (Table) 07/24/24 07/24/24 Range/Units 05:12 05:21 WBC 16.51 H (4.50-10.00) 10*3/uL RBC 4.09 L (4.40-5.60) 10*6/uL Hgb 12.5 L (13.0-17.0) g/dL Hct 36.8 L (39.6-50.0) % Sodium 130 L (137-145) mmol/L Chloride 95 L (98-107) mmol/L Glucose 111 H (74-99) mg/dL
[2024-07-24 16:38] LABS: Chol/HDL Ratio 2.75 Ratio
[2024-07-24 16:41] LABS: LDL Cholesterol,Calculated 58.9 mg/dL (0.0-131.0); VLDL Calculation 19.44 mg/dL (5.00-40.00)
[2024-07-25 08:52] LABS: African American GFR (CKD) >90 (>60 ml/min/1.73 sqM); Anion Gap 6 mmol/L; Blood Urea Nitrogen 15 mg/dL (9-20); Carbon Dioxide 28 mmol/L (22-30); Chloride 95 mmol/L (98-107); Glucose 113 mg/dL (74-99); Non-African American GFR(CKD) 85 (>60 ml/min/1.73 sqM); Potassium 3.8 mmol/L (3.5-5.1); Sodium 129 mmol/L (137-145)
[2024-07-25 08:55] LABS: Basophils # (A) 0.04 10*3/uL (0.00-0.10); Basophils % (A) 0.2 %; Eosinophils # (A) 0.02 10*3/uL (0.04-0.35); Eosinophils % (A) 0.1 %; HGB 13.2 g/dL (13.0-17.0); Lymphocytes # (A) 1.65 10*3/uL (0.90-5.00); Lymphocytes % (A) 9.9 %; MCH 30.7 pg (27.0-32.0); MCHC 34.7 g/dL (32.0-37.0); MCV 88.4 fL (80.0-97.0); Mean Platelet Volume 9.7 fL (9.5-12.2); Monocytes # (A) 2.57 10*3/uL (0.20-1.00); Monocytes % (A) 15.5 %; Neutrophils # (A) 12.24 10*3/uL (1.80-7.70); Neutrophils % (A) 73.7 %; Platelet Count 193 10*3/uL (140-440); RDW 13.3 % (11.5-14.5); WBC 16.62 10*3/uL (4.50-10.00)
[2024-07-25] MEDS: POTASSIUM BICARBONATE/CIT AC 20 MEQ TABLET.EFF NG-TUBE SCH (09:38)
[2024-07-25 10:11] LABS: RBC Morphology Normal
--- NOTE | 2024-07-25 14:25 | P.PN ---
Subjective History of Present Illness: The patient is an 84-year-old male with a history of hypertension who presented with sudden onset chest discomfort radiating to the shoulder, not associated with any symptoms. In the emergency room he was found to have evidence of acute inferior wall myocardial infarction. Patient denies any prior history of CAD. He denies any exertional dyspnea or chest discomfort at baseline. He has no history of PND, orthopnea or peripheral edema. He has sinus bradycardia on presentation. He is a non-smoker and has no other cardiac past history. Medications: Blood pressure medication, he cannot recall 07/24 Patient seen and examined. Patient denies any chest pain or pressure. No significant shortness of breath. He underwent left heart catheterization which showed 100% stenosis of the distal RCA and mild to moderate disease of the left. Echocardiogram showed EF 25 to 30% with mild mitral regurgitation and RVSP 47. 07/25 Patient seen and examined. Patient had 1 episode of tachycardia with heart rate 115 which appears to be regular most consistent with SVT versus underlying slow atrial tachycardia/atrial flutter. He denies any chest pain or pressure. Denies any significant shortness of breath. Blood pressures been stable. Currently in sinus rhythm. Still at times somewhat confused and has a one-to-on e sitter. Physical Examination: 84-year-old male, alert oriented, having discomfort in the chest, hard of hearing. Evaluated in the cardiac catheterization laboratory,Blood pressure 103/70, Heart rate 48 Head: Normocephalic. Eyes: Sclerae nonicteric. Neck: Good carotid upstroke, no bruit, no jugular venous distention. Lungs: Clear to auscultation. Heart: Regular rate and rhythm, S1-S2, no S3, no rub. Systolic ejection murmur. Abdomen: Soft nontender, positive bowel sounds no organomegaly. Extremities: No edema, intact distal pulses. Labs: Hemoglobin 12.7, with WBC 16.6 EKG: Sinus mechanism with sinus bradycardia ST segment elevation to [address] depression in V1 and V2 consistent with inferior myocardial infarction and reciprocal changes Impression: 1. Acute inferolateral myocardial infarction s/p PCI RCA 2. Persistent Afib 3. History of hypertension 4. Ischemic cardiomyopathy with EF 25-30% 5. Chronic systolic heart failure 6. SVT Plan: Continue with dual antiplatelets including aspirin and Brilinta. On discharge we will stop the aspirin and continue with Brilinta and Eliquis. Continue with remainder of heart failure regimen. Likely discharge in 24 hours if remains stable. Given confusion, patient will likely not be able to follow commands and do not feel LifeVest is a good option for him. Further recommendations to follow. Objective - Vital Signs Vital signs: Vital Signs Temp 99.0 F 07/25/24 12:00 Pulse 73 07/25/24 13:00 Resp 16 07/25/24 13:00 BP 125/63 07/25/24 13:00 Pulse Ox 99 07/25/24 12:00 FiO2 4 07/24/24 01:00 Intake & Output 07/24/24 07/25/24 07/25/24 18:59 06:59 18:59 Intake Total 400.837 240 Output Total 650 125 350 Balance -249.163 115 -350 Weight 70.8 kg 68.6 kg Intake: IV 240 240 KVO 240 240 Intake, IV Titration 160.837 Amount Amiodarone 450 mg In 160.837 Dextrose 5% in Water 250 ml @ 0.5 MG/MIN 16.667 mls/hr IV .Q15H [facility] Rx#: [id number] Output: Urine 650 125 350 Other: Voiding Method Toilet Toilet Toilet Urinal Urinal # Voids 1 1 # Bowel Movements 1 1 - Labs CBC & Chem 7: 07/25/24 07:53 07/25/24 07:53 Labs: Abnormal Lab Results - Last 24 Hours (Table) 07/25/24 07/25/24 Range/Units 07:53 07:53 WBC 16.62 H (4.50-10.00) 10*3/uL RBC 4.30 L (4.40-5.60) 10*6/uL Hct 38.0 L (39.6-50.0) % Immature Gran # 0.10 H (0.00-0.04) 10*3/uL Neutrophils # 12.24 H (1.80-7.70) 10*3/uL Monocytes # 2.57 H (0.20-1.00) 10*3/uL Eosinophils # 0.02 L (0.04-0.35) 10*3/uL Sodium 129 L (137-145) mmol/L Chloride 95 L (98-107) mmol/L Glucose 113 H (74-99) mg/dL
--- NOTE | 2024-07-25 14:55 | P.PN ---
Subjective Progress Note Date: 07/25/24 Patient 84-year-old male came with complaints of typical chest pain radiating to the shoulder found to be in ST elevation [place] in anteroinferiorly patient underwent cardiac authorization and stenting to RCA patient received 2 stents. Patient denied fever chills nausea vomiting abdominal pain dysuria at this time. Patient is otherwise clinically doing well patient denied any chest pain at this time patient has elevated troponin of 77. He had sinus bradycardia on presentation. 07/24/2024 Patient is bit confused secondary to ICU delirium. Patient is in atrial fibrillation with a rapid unclear rate patient was started on amiodarone patient is on beta-trang as well. Patient has mild pulmonary edema is on 2 L of oxygen patient is on 20 p.o. twice daily of Lasix was given a dose of Lasix by cardiology yesterday. Patient denied any chest pain at this time. Echocardiogram is still pending. REVIEW OF SYSTEMS: 07/25/2024 Patient is evaluated in the intensive care unit. at the bedside. Patient has no acute complaints at this time. He is status post stenting to the RCA. He has scattered wheezing noted on examination today. Ejection fraction comes back revealing an EF of 25 to 30%. He remains on oral Lasix 20 mg twice daily. Patient has not been up out of bed much. Review of Systems Constitutional: Denied any fatigue denied any fever. Cardio vascular: denied any chest pain, palpitations Gastrointestinal: denied any nausea, vomiting, diarrhea Pulmonary: Denied any shortness of breath cough Neurologic denied any new focal deficits All inpatient medications were reviewed and appropriate changes in these medications as dictated in the interval history and assessment and plan. PHYSICAL EXAMINATION: GENERAL: The patient is alert and oriented x3, not in any acute distress. Well developed, well nourished. HEENT: Pupils are round and equally reacting to light. EOMI. No scleral icterus. No conjunctival pallor. Normocephalic, atraumatic. No pharyngeal erythema. No thyromegaly. CARDIOVASCULAR: S1 and S2 present. No murmurs, rubs, or gallops. PULMONARY: Scattered wheezing throughout ABDOMEN: Soft, nontender, nondistended, normoactive bowel sounds. No palpable organomegaly. MUSCULOSKELETAL: No joint swelling or deformity. EXTREMITIES: No cyanosis, clubbing, or pedal edema. NEUROLOGICAL: Gross neurological examination did not reveal any focal deficits. SKIN: No rashes. Assessment and plan -Acute non-ST elevation [place]: s/p stenting of the RCA -Atrial fibrillation with rapid unclear rate: Patient is on oral metoprolol and oral eliquis. Rate controlled and currently in sinus mechanism. -Ischemic cardiomyopathy EF 25-30% -Leukocytosis probably secondary to [place] patient white count improved although there is no clear evidence of infection at this time we will continue to monitor without any antibiotics at this time. - Acute hypoxic respiratory failure secondary to pulmonary edema congestive heart failure on Lasix as mentioned above - Acute pulmonary edema secondary to acute myocardial infarction with acute exacerbation -Hyperlipidemia -hypertension - Benign prostatic hypertrophy For above-mentioned chronic medical problems patient was resumed on appropriate home medications Patient will be monitored in the ICU overnight. Continue cardiac telemetry. Not a good candidate for lifevest. PT/OT consultation. Possible DC home in the next 24 hours The impression and plan of care has been dictated by Katarina Rodriguez, Nurse Practitioner as directed. Dr. Mukesh MD I have performed a history and physical examination and medical decision making of this patient, discussed the same with the dictator, and agree with the dictators assessment and plan as written, documented as a scribe. Based on total visit time, I have performed more than 50% of this visit. Objective - Vital Signs Vital signs: Vital Signs Temp 99.0 F 07/25/24 12:00 Pulse 73 07/25/24 13:00 Resp 16 07/25/24 13:00 BP 125/63 07/25/24 13:00 Pulse Ox 99 07/25/24 12:00 FiO2 4 07/24/24 01:00 Intake & Output 07/24/24 07/25/24 07/25/24 18:59 06:59 18:59 Intake Total 400.837 240 Output Total 650 125 350 Balance -249.163 115 -350 Weight 70.8 kg 68.6 kg Intake: IV 240 240 KVO 240 240 Intake, IV Titration 160.837 Amount Amiodarone 450 mg In 160.837 Dextrose 5% in Water 250 ml @ 0.5 MG/MIN 16.667 mls/hr IV .Q15H [facility] Rx#: [id number] Output: Urine 650 125 350 Other: Voiding Method Toilet Toilet Toilet Urinal Urinal # Voids 1 1 # Bowel Movements 1 1 - Labs CBC & Chem 7: 07/25/24 07:53 07/25/24 07:53 Labs: Abnormal Lab Results - Last 24 Hours (Table) 07/25/24 07/25/24 Range/Units 07:53 07:53 WBC 16.62 H (4.50-10.00) 10*3/uL RBC 4.30 L (4.40-5.60) 10*6/uL Hct 38.0 L (39.6-50.0) % Immature Gran # 0.10 H (0.00-0.04) 10*3/uL Neutrophils # 12.24 H (1.80-7.70) 10*3/uL Monocytes # 2.57 H (0.20-1.00) 10*3/uL Eosinophils # 0.02 L (0.04-0.35) 10*3/uL Sodium 129 L (137-145) mmol/L Chloride 95 L (98-107) mmol/L Glucose 113 H (74-99) mg/dL Assessment and Plan Time with Patient: Less than 30
[2024-07-26 07:06] LABS: African American GFR (CKD) >90 (>60 ml/min/1.73 sqM); Anion Gap 8 mmol/L; Blood Urea Nitrogen 18 mg/dL (9-20); Carbon Dioxide 27 mmol/L (22-30); Chloride 92 mmol/L (98-107); Glucose 107 mg/dL (74-99); Non-African American GFR(CKD) 84 (>60 ml/min/1.73 sqM); Potassium 3.2 mmol/L (3.5-5.1); Sodium 127 mmol/L (137-145)
[2024-07-26] MEDS: POTASSIUM BICARBONATE/CIT AC 20 MEQ TABLET.EFF NG-TUBE SCH (08:01)
--- NOTE | 2024-07-26 12:33 | P.PN ---
Subjective History of Present Illness: The patient is an 84-year-old male with a history of hypertension who presented with sudden onset chest discomfort radiating to the shoulder, not associated with any symptoms. In the emergency room he was found to have evidence of acute inferior wall myocardial infarction. Patient denies any prior history of CAD. He denies any exertional dyspnea or chest discomfort at baseline. He has no history of PND, orthopnea or peripheral edema. He has sinus bradycardia on presentation. He is a non-smoker and has no other cardiac past history. Medications: Blood pressure medication, he cannot recall 07/24 Patient seen and examined. Patient denies any chest pain or pressure. No significant shortness of breath. He underwent left heart catheterization which showed 100% stenosis of the distal RCA and mild to moderate disease of the left. Echocardiogram showed EF 25 to 30% with mild mitral regurgitation and RVSP 47. 07/25 Patient seen and examined. Patient had 1 episode of tachycardia with heart rate 115 which appears to be regular most consistent with SVT versus underlying slow atrial tachycardia/atrial flutter. He denies any chest pain or pressure. Denies any significant shortness of breath. Blood pressures been stable. Currently in sinus rhythm. Still at times somewhat confused and has a one-to-on e sitter. 07/26 Patient seen and examined. Patient feeling better and mentally more back to his normal self. One-to-one sitter has been discontinued. Blood pressures relatively stable. Still has had intermittent episodes of SVT which she states he is asymptomatic from. He had episode with heart rates in the 120s and 130s however no significant shortness of breath or lightheadedness. Physical Examination: 84-year-old male, alert oriented, having discomfort in the chest, hard of hearing. Evaluated in the cardiac catheterization laboratory,Blood pressure 103/70, Heart rate 48 Head: Normocephalic. Eyes: Sclerae nonicteric. Neck: Good carotid upstroke, no bruit, no jugular venous distention. Lungs: Clear to auscultation. Heart: Regular rate and rhythm, S1-S2, no S3, no rub. Systolic ejection murmur. Abdomen: Soft nontender, positive bowel sounds no organomegaly. Extremities: No edema, intact distal pulses. Labs: Hemoglobin 12.7, with WBC 16.6 EKG: Sinus mechanism with sinus bradycardia ST segment elevation to [address] depression in V1 and V2 consistent with inferior myocardial infarction and reciprocal changes Impression: 1. Acute inferolateral myocardial infarction s/p PCI RCA 2. Persistent Afib 3. History of hypertension 4. Ischemic cardiomyopathy with EF 25-30% 5. Chronic systolic heart failure 6. SVT Plan: Patient still having intermittent episodes of SVT and A-fib/atrial flutter. May consider more aggressive rhythm approach however has likely been more chronic and relatively well-controlled. We therefore discussed more conservative management and monitoring with outpatient monitor. If we do feel tachycardia is causing some degree of cardiomyopathy may consider more aggressive approach. Otherwise we will stop his aspirin and continue with Brilinta and Eliquis. Stable for discharge home from cardiology standpoint. Objective - Vital Signs Vital signs: Vital Signs Temp 98.5 F 07/26/24 08:00 Pulse 140 H 07/26/24 08:00 Resp 16 07/26/24 08:00 BP 115/76 07/26/24 08:00 Pulse Ox 96 07/26/24 08:00 FiO2 4 07/24/24 01:00 Intake & Output 07/25/24 07/26/24 07/26/24 18:59 06:59 18:59 Output Total 650 0 0 Balance -650 0 0 Weight 68.5 kg Output: Urine 650 0 0 Other: Voiding Method Toilet Toilet Toilet # Voids 1 1 # Bowel Movements 1 1 - Labs CBC & Chem 7: 07/25/24 07:53 07/26/24 05:09 Labs: Abnormal Lab Results - Last 24 Hours (Table) 07/26/24 Range/Units 05:09 Sodium 127 L (137-145) mmol/L Potassium 3.2 L (3.5-5.1) mmol/L Chloride 92 L (98-107) mmol/L Glucose 107 H (74-99) mg/dL
[2024-07-26] MEDS: AMIODARONE 200 MG TAB PO SCH (13:53)
--- NOTE | 2024-07-26 14:01 | P.PN ---
Subjective Progress Note Date: 07/26/24 Patient 84-year-old male came with complaints of typical chest pain radiating to the shoulder found to be in ST elevation CO in anteroinferiorly patient underwent cardiac authorization and stenting to RCA patient received 2 stents. Patient denied fever chills nausea vomiting abdominal pain dysuria at this time. Patient is otherwise clinically doing well patient denied any chest pain at this time patient has elevated troponin of 77. He had sinus bradycardia on presentation. 07/24/2024 Patient is bit confused secondary to ICU delirium. Patient is in atrial fibrillation with a rapid unclear rate patient was started on amiodarone patient is on beta-trang as well. Patient has mild pulmonary edema is on 2 L of oxygen patient is on 20 p.o. twice daily of Lasix was given a dose of Lasix by cardiology yesterday. Patient denied any chest pain at this time. Echocardiogram is still pending. REVIEW OF SYSTEMS: 07/25/2024 Patient is evaluated in the intensive care unit. at the bedside. Patient has no acute complaints at this time. He is status post stenting to the RCA. He has scattered wheezing noted on examination today. Ejection fraction comes back revealing an EF of 25 to 30%. He remains on oral Lasix 20 mg twice daily. Patient has not been up out of bed much. 07/26/2024 Patient is evaluated today in follow up in the ICU with family at the bedside. He has no acute complaints. He is status post stenting to the RCA. Remains on brilinta, aspirin, and eliquis with plans to continue on brilinta and eliquis on discharge. He worked with PT today with recommendations for return home on discharge. Heart rate did go up to 170 atrial fibrillation with ambulation and he has been started on oral amiodarone. Blood pressure 127/70. Sodium level today 127, potassium 3.2. Review of Systems Constitutional: Denied any fatigue denied any fever. Cardio vascular: denied any chest pain, palpitations Gastrointestinal: denied any nausea, vomiting, diarrhea Pulmonary: Denied any shortness of breath cough Neurologic denied any new focal deficits All inpatient medications were reviewed and appropriate changes in these medications as dictated in the interval history and assessment and plan. PHYSICAL EXAMINATION: GENERAL: The patient is alert and oriented x3, not in any acute distress. Well developed, well nourished. HEENT: Pupils are round and equally reacting to light. EOMI. No scleral icterus. No conjunctival pallor. Normocephalic, atraumatic. No pharyngeal erythema. No thyromegaly. CARDIOVASCULAR: S1 and S2 present. No murmurs, rubs, or gallops. PULMONARY: Scattered wheezing throughout ABDOMEN: Soft, nontender, nondistended, normoactive bowel sounds. No palpable organomegaly. MUSCULOSKELETAL: No joint swelling or deformity. EXTREMITIES: No cyanosis, clubbing, or pedal edema. NEUROLOGICAL: Gross neurological examination did not reveal any focal deficits. SKIN: No rashes. Assessment and plan -Acute non-ST elevation CO: s/p stenting of the RCA -Atrial fibrillation with rapid ventricular rate: Patient is on oral metoprolol and oral eliquis. Rate controlled; he did go up to 170 with ambulation and has been started on oral amiodarone. Continue to monitor on cardiac telemetry. -Ischemic cardiomyopathy EF 25-30% -Leukocytosis probably secondary to CO patient white count improved although there is no clear evidence of infection at this time we will continue to monitor without any antibiotics at this time. - Acute hypoxic respiratory failure secondary to pulmonary edema congestive heart failure on Lasix as mentioned above - Acute pulmonary edema secondary to acute myocardial infarction with acute exacerbation -Hyperlipidemia -hypertension - Benign prostatic hypertrophy For above-mentioned chronic medical problems patient was resumed on appropriate home medications Patient will be monitored in the ICU overnight. Continue cardiac telemetry. Not a good candidate for lifevest. PT/OT consultation. Possible DC home in the next 24 hours. Consult nephrology. The impression and plan of care has been dictated by Katarina Rodriguez, Nurse Practitioner as directed. Dr. Mukesh MD I have performed a history and physical examination and medical decision making of this patient, discussed the same with the dictator, and agree with the dictators assessment and plan as written, documented as a scribe. Based on total visit time, I have performed more than 50% of this visit. Objective - Vital Signs Vital signs: Vital Signs Temp 97.4 F L 07/26/24 12:00 Pulse 76 07/26/24 12:00 Resp 14 07/26/24 12:00 BP 127/70 07/26/24 12:00 Pulse Ox 96 07/26/24 12:00 FiO2 4 07/24/24 01:00 Intake & Output 07/25/24 07/26/2407/26/25 18:59 06:59 18:59 Output Total 650 0 0 Balance -650 0 0 Weight 68.5 kg Output: Urine 650 0 0 Other: Voiding Method Toilet Toilet Toilet # Voids 1 1 # Bowel Movements 1 1 - Labs CBC & Chem 7: 07/25/24 07:53 07/26/24 05:09 Labs: Abnormal Lab Results - Last 24 Hours (Table) 07/26/24 Range/Units 05:09 Sodium 127 L (137-145) mmol/L Potassium 3.2 L (3.5-5.1) mmol/L Chloride 92 L (98-107) mmol/L Glucose 107 H (74-99) mg/dL Assessment and Plan Time with Patient: Less than 30
[2024-07-26] MEDS: DEXTROSE 5% IN WATER 100 ML with AMIODARONE 150 MG IV ONE (15:13)
[2024-07-26] MEDS: AMIODARONE 360 MG in DEXTROSE 5% IN WATER 200 ML IV ONE (15:38)
[2024-07-26] MEDS: AMIODARONE 450 MG in DEXTROSE 5% IN WATER 250 ML IV SCH (21:20)
[2024-07-27 04:27] LABS: Basophils # (A) 0.04 10*3/uL (0.00-0.10); Basophils % (A) 0.3 %; Eosinophils # (A) 0.13 10*3/uL (0.04-0.35); Eosinophils % (A) 0.9 %; HCT 38.6 % (39.6-50.0); HGB 13.4 g/dL (13.0-17.0); Lymphocytes # (A) 2.03 10*3/uL (0.90-5.00); Lymphocytes % (A) 14.4 %; MCH 30.6 pg (27.0-32.0); MCHC 34.7 g/dL (32.0-37.0); MCV 88.1 fL (80.0-97.0); Mean Platelet Volume 10.2 fL (9.5-12.2); Monocytes # (A) 1.65 10*3/uL (0.20-1.00); Monocytes % (A) 11.7 %; Neutrophils # (A) 10.15 10*3/uL (1.80-7.70); Neutrophils % (A) 72.3 %; Platelet Count 261 10*3/uL (140-440); RBC 4.38 10*6/uL (4.40-5.60); RDW 13.3 % (11.5-14.5); WBC 14.05 10*3/uL (4.50-10.00)
[2024-07-27 04:56] LABS: African American GFR (CKD) 88 (>60 ml/min/1.73 sqM); Anion Gap 10 mmol/L; Blood Urea Nitrogen 17 mg/dL (9-20); Calcium 8.6 mg/dL (8.4-10.2); Carbon Dioxide 29 mmol/L (22-30); Chloride 87 mmol/L (98-107); Glucose 123 mg/dL (74-99); Magnesium 1.5 mg/dL (1.6-2.3); Non-African American GFR(CKD) 76 (>60 ml/min/1.73 sqM); Potassium 3.3 mmol/L (3.5-5.1); Sodium 126 mmol/L (137-145)
[2024-07-27] MEDS: MAGNESIUM SULFATE-D5W PMX 1 GM in DEXTROSE/WATER 1 100ML.BAG IVPB SCH (05:39)
[2024-07-27] MEDS: POTASSIUM CHLORIDE ER 20 MEQ TAB.ER PO SCH (06:38)
[2024-07-27] MEDS ORDERED: MAGNESIUM SULFATE-D5W PMX 1 GM in DEXTROSE/WATER 1 100ML.BAG IVPB SCH (09:00)
--- NOTE | 2024-07-27 11:18 | P.NPCON ---
History of Present Illness - Reason for Consult hyponatremia - History of Present Illness Patient is an 84-year-old male with history of hypertension, prostatic cancer who is admitted to the hospital with complaints of chest pain. Patient ruled in for ST elevation DC and is status post cardiac catheterization on 07/23/2024 with stenting of distal RCA. He currently denies any chest pain. Patient had developed A-fib with RVR and was maintained on amiodarone drip which was discontinued this morning. Serum sodium was 133 on initial admission and has subsequently dropped to 126 today over the last 5 days. Patient has been voiding No significant hypotension No significant pain No history of diarrhea. No previous history of hyponatremia Started on oral Lasix 2 days ago. Chest x-ray shows evidence of pulmonary vascular congestion on 07/24/2024. No complaints of shortness of breath today. Past Medical History Past Medical History: Hyperlipidemia, Hypertension, Osteoarthritis (OA), Prostate Disorder Additional Past Medical History / Comment(s): skin cancer, wet mac degeneration with bilateral injections. Previous cataracts, prostate CA with radiation and seeds approx 20 years ago. History of Any Multi-Drug Resistant Organisms: None Reported Past Surgical History: Heart Catheterization With Stent Past Anesthesia/Blood Transfusion Reactions: No Reported Reaction Date of Last Stent Placement:: 07-23-24 Smoking Status: Former smoker Past Alcohol Use History: Daily Past Drug Use History: None Reported Medications and Allergies Home Medications Medication Instructions Recorded Confirmed Type Ergocalciferol (Vitamin D2) 1,250 mcg PO Q14D 07/23/24 07/23/24 History [Drisdol (50,000 Iu)] NIFEdipine XL [Procardia Xl] 30 mg PO DAILY 07/23/24 07/23/24 History Simvastatin [Zocor] 20 mg PO HS 07/23/24 07/23/24 History Tamsulosin [Flomax] 0.4 mg PO HS 07/23/24 07/23/24 History Ubidecarenone [Q-Sorb Co Q-10] 200 mg PO DAILY 07/23/24 07/23/24 History Vit C/E/Zn/Coppr/Lutein/Zeaxan 1 cap PO DAILY 07/23/24 07/23/24 History [Preservision Areds 2 Softgel] atenoloL 100 mg PO DAILY 07/23/24 07/23/24 History lisinopriL [Zestril] 20 mg PO DAILY 07/23/24 07/23/24 History Allergies Allergy/AdvReac Type Severity Reaction Status Date / Time No Known Allergies Allergy Verified 07/23/24 09:24 Physical Exam Vitals: Vital Signs Temp Pulse Resp BP Pulse Ox 07/27/24 10:00 88 11 L 07/27/24 08:00 87 13 144/78 98 07/27/24 07:00 85 19 102/57 97 07/27/24 06:00 86 15 118/64 97 07/27/24 04:00 83 16 110/64 07/27/24 03:00 95 16 144/74 98 07/27/24 02:00 102 H 15 99/60 07/27/24 01:00 101 H 18 111/63 07/27/24 00:00 98 16 103/81 97 07/26/24 23:00 78 18 89/62 07/26/24 22:13 113 H 16 118/85 07/26/24 22:00 105 H 31 H 147/81 07/26/24 21:30 128 H 16 145/95 07/26/24 21:00 146 H 16 119/76 96 07/26/24 20:30 108 H 19 112/74 07/26/24 20:00 126 H 17 110/84 96 07/26/24 19:45 115 H 14 114/76 07/26/24 19:30 116 H 9 L 124/72 07/26/24 19:15 110 H 14 104/75 07/26/24 19:00 109 H 13 108/62 07/26/24 18:45 105 H 12 87/65 07/26/24 18:30 104 H 114/64 07/26/24 18:15 114 H 123/97 07/26/24 18:00 113/102 07/26/24 17:45 115 H 107/80 07/26/24 17:30 114 H 128/76 07/26/24 17:15 121 H 8 L 109/84 07/26/24 17:00 122 H 11 L 104/66 07/26/24 16:45 118 H 9 L 116/71 07/26/24 16:30 123 H 108/65 07/26/24 16:15 113 H 12 118/71 07/26/24 16:00 105 H 19 99/65 07/26/24 15:45 99.3 F 123 H 14 110/84 98 07/26/24 15:30 170 H 14 117/87 07/26/24 15:15 170 H 13 117/87 07/26/24 15:05 170 H 119/87 07/26/24 14:45 167 H 07/26/24 14:30 167 H 07/26/24 14:15 141 H 07/26/24 14:00 167 H 07/26/24 13:45 96 07/26/24 13:30 92 07/26/24 13:15 160 H 07/26/24 13:00 74 13 138/62 07/26/24 12:00 97.4 F L 76 14 127/70 96 Intake and Output 07/26/24 07/27/24 07/27/24 22:59 06:59 14:59 Intake Total 240 Output Total 0 200 Balance 0 40 Intake: Oral 240 Output: Urine 0 200 Other: Voiding Method Toilet Toilet Toilet # Voids 1 2 1 # Bowel Movements 2 Weight 65.9 kg Patient is awake, comfortable, no acute distress. Examination of the heart S1 and S2 Examination of the lungs bilateral breath sounds are heard Abdomen is soft nontender Examination of lower extremity shows no evidence of edema [facility]MER exam grossly intact Results - Lab Results Most recent lab results Calcium 8.6 mg/dL (8.4-10.2) 07/27/24 04:00 Magnesium 1.5 mg/dL (1.6-2.3) L 07/27/24 04:00 07/27/24 03:56 07/27/24 04:00 Assessment and Plan Assessment: 1. Hyponatremia, currently euvolemic but evidence of hypervolemia about 2 days ago and currently maintained on low-dose loop diuretics. Patient was also maintained on amiodarone drip which is based in D5W and can cause hyponatremia. Check urine sodium and urine osmolality.. TSH is within normal range. Rule out urine retention. 2. Hypokalemia secondary to diuretics 3. Acute ST elevation DC status post cardiac catheterization and right coronary artery stent placement on 07/24/2024 4. A-fib with RVR currently with controlled ventricular response, status post amiodarone drip. Plan: Check urine osmolality and urine sodium. Extra dose of IV Lasix at noon today Repeat sodium this evening Replace potassium Patient is advised to increase oral protein intake. Continue off of IV fluids Thank you for the consultation. We will continue to follow the patient with you during his hospitalization.
--- NOTE | 2024-07-27 12:55 | P.PN ---
Subjective History of Present Illness: The patient is an 84-year-old male with a history of hypertension who presented with sudden onset chest discomfort radiating to the shoulder, not associated with any symptoms. In the emergency room he was found to have evidence of acute inferior wall myocardial infarction. Patient denies any prior history of CAD. He denies any exertional dyspnea or chest discomfort at baseline. He has no history of PND, orthopnea or peripheral edema. He has sinus bradycardia on presentation. He is a non-smoker and has no other cardiac past history. Medications: Blood pressure medication, he cannot recall 07/24 Patient seen and examined. Patient denies any chest pain or pressure. No significant shortness of breath. He underwent left heart catheterization which showed 100% stenosis of the distal RCA and mild to moderate disease of the left. Echocardiogram showed EF 25 to 30% with mild mitral regurgitation and RVSP 47. 07/25 Patient seen and examined. Patient had 1 episode of tachycardia with heart rate 115 which appears to be regular most consistent with SVT versus underlying slow atrial tachycardia/atrial flutter. He denies any chest pain or pressure. Denies any significant shortness of breath. Blood pressures been stable. Currently in sinus rhythm. Still at times somewhat confused and has a one-to-on e sitter. 07/26 Patient seen and examined. Patient feeling better and mentally more back to his normal self. One-to-one sitter has been discontinued. Blood pressures relatively stable. Still has had intermittent episodes of SVT which she states he is asymptomatic from. He had episode with heart rates in the 120s and 130s however no significant shortness of breath or lightheadedness. 07/27 Patient initially was cleared for discharge with outpatient monitor however went into A-fib/SVT with heart rates in the 160s and 170s. He was fairly asymptomatic however was persistent and therefore started on amiodarone drip. Patient had intermittent episodes however last 8 hours since this morning has been in normal rhythm. Denies any chest pain or pressure. No significant shortness of breath. Physical Examination: 84-year-old male, alert oriented, having discomfort in the chest, hard of he aring. Evaluated in the cardiac catheterization laboratory,Blood pressure 103/70, Heart rate 48 Head: Normocephalic. Eyes: Sclerae nonicteric. Neck: Good carotid upstroke, no bruit, no jugular venous distention. Lungs: Clear to auscultation. Heart: Regular rate and rhythm, S1-S2, no S3, no rub. Systolic ejection murmur. Abdomen: Soft nontender, positive bowel sounds no organomegaly. Extremities: No edema, intact distal pulses. Impression: 1. Acute inferolateral myocardial infarction s/p PCI RCA 2. Persistent Afib 3. History of hypertension 4. Ischemic cardiomyopathy with EF 25-30% 5. Chronic systolic heart failure 6. SVT Plan: Patient still with intermittent episodes of A-fib and atrial flutter. Patient appears better controlled on amiodarone. Patient cleared for discharge home from a cardiology standpoint on amiodarone taper 400 mg twice a day for 1 week, then 200 mg twice a day for 1 week and then 200 mg daily. Outpatient follow-up. Objective - Vital Signs Vital signs: Vital Signs Temp 99.3 F 07/26/24 15:45 Pulse 88 07/27/24 10:00 Resp 11 L 07/27/24 10:00 BP 144/78 07/27/24 08:00 Pulse Ox 98 07/27/24 08:00 FiO2 4 07/24/24 01:00 Intake & Output 07/26/24 07/27/24 07/27/24 18:59 06:59 18:59 Intake Total 240 Output Total 0 200 Balance 0 40 Weight 65.9 kg Intake: Oral 240 Output: Urine 0 200 Other: Voiding Method Toilet Toilet Toilet # Voids 0 2 1 # Bowel Movements 1 2 - Labs CBC & Chem 7: 07/27/24 03:56 07/27/24 04:00 Labs: Abnormal Lab Results - Last 24 Hours (Table) 07/27/24 07/27/24 Range/Units 03:56 04:00 WBC 14.05 H (4.50-10.00) 10*3/uL RBC 4.38 L (4.40-5.60) 10*6/uL Hct 38.6 L (39.6-50.0) % Immature Gran # 0.05 H (0.00-0.04) 10*3/uL Neutrophils # 10.15 H (1.80-7.70) 10*3/uL Monocytes # 1.65 H (0.20-1.00) 10*3/uL Sodium 126 L (137-145) mmol/L Potassium 3.3 L (3.5-5.1) mmol/L Chloride 87 L (98-107) mmol/L Glucose 123 H (74-99) mg/dL Magnesium 1.5 L (1.6-2.3) mg/dL
[2024-07-27] MEDS: FUROSEMIDE 10 MG/ML 2 ML VIAL IV ONE (13:20)
--- NOTE | 2024-07-27 21:33 | P.PN ---
Subjective Progress Note Date: 07/27/24 Patient 84-year-old male came with complaints of typical chest pain radiating to the shoulder found to be in ST elevation [place] in anteroinferiorly patient underwent cardiac authorization and stenting to RCA patient received 2 stents. Patient denied fever chills nausea vomiting abdominal pain dysuria at this time. Patient is otherwise clinically doing well patient denied any chest pain at this time patient has elevated troponin of 77. He had sinus bradycardia on presentation. 07/24/2024 Patient is bit confused secondary to ICU delirium. Patient is in atrial fibrillation with a rapid unclear rate patient was started on amiodarone patient is on beta-trang as well. Patient has mild pulmonary edema is on 2 L of oxygen patient is on 20 p.o. twice daily of Lasix was given a dose of Lasix by cardiology yesterday. Patient denied any chest pain at this time. Echocardiogram is still pending. REVIEW OF SYSTEMS: 07/25/2024 Patient is evaluated in the intensive care unit. at the bedside. Patient has no acute complaints at this time. He is status post stenting to the RCA. He has scattered wheezing noted on examination today. Ejection fraction comes back revealing an EF of 25 to 30%. He remains on oral Lasix 20 mg twice daily. Patient has not been up out of bed much. 07/26/2024 Patient is evaluated today in follow up in the ICU with family at the bedside. He has no acute complaints. He is status post stenting to the RCA. Remains on brilinta, aspirin, and eliquis with plans to continue on brilinta and eliquis on discharge. He worked with PT today with recommendations for return home on discharge. Heart rate did go up to 170 atrial fibrillation with ambulation and he has been started on oral amiodarone. Blood pressure 127/70. Sodium level today 127, potassium 3.2. 07/27/2024 Patient is evaluated today in follow up in the intensive care unit. He has been cleared by cardiology. Weaned off the cardizem gtt and heart rate is now controlled. Sodium level is 126, and 127. Review of Systems Constitutional: Denied any fatigue denied any fever. Cardio vascular: denied any chest pain, palpitations Gastrointestinal: denied any nausea, vomiting, diarrhea Pulmonary: Denied any shortness of breath cough Neurologic denied any new focal deficits All inpatient medications were reviewed and appropriate changes in these medications as dictated in the interval history and assessment and plan. PHYSICAL EXAMINATION: GENERAL: The patient is alert and oriented x3, not in any acute distress. Well developed, well nourished. HEENT: Pupils are round and equally reacting to light. EOMI. No scleral icterus. No conjunctival pallor. Normocephalic, atraumatic. No pharyngeal erythema. No thyromegaly. CARDIOVASCULAR: S1 and S2 present. No murmurs, rubs, or gallops. PULMONARY: Scattered wheezing throughout ABDOMEN: Soft, nontender, nondistended, normoactive bowel sounds. No palpable organomegaly. MUSCULOSKELETAL: No joint swelling or deformity. EXTREMITIES: No cyanosis, clubbing, or pedal edema. NEUROLOGICAL: Gross neurological examination did not reveal any focal deficits. SKIN: No rashes. Assessment and plan -Acute non-ST elevation [place]: s/p stenting of the RCA -Atrial fibrillation with rapid ventricular rate: Patient is on oral metoprolol and oral eliquis. Rate controlled; he did go up to 170 with ambulation and has been started on IV amiodarone and since transitioned oral amiodarone. Continue to monitor on cardiac telemetry. -Ischemic cardiomyopathy EF 25-30% -Hyponatremia hypervolemic. IV lasix x 1 given. -Leukocytosis probably secondary to [place] patient white count improved although there is no clear evidence of infection at this time we will continue to monitor without any antibiotics at this time. - Acute hypoxic respiratory failure secondary to pulmonary edema congestive heart failure on Lasix as mentioned above - Acute pulmonary edema secondary to acute myocardial infarction with acute exacerbation -Hyperlipidemia -hypertension - Benign prostatic hypertrophy DVT prophylaxis : Eliquis No Code Patient has been transitioned to oral amiodarone. Remains on cardiac telemetry. Heart rate now controlled. Nephrology following. IV lasix x 1 given. Downgraded from the ICU. Potassium has been supplemented. Repeat labs in the AM. The impression and plan of care has been dictated by Katarina Rodriguez Nurse Practitioner as directed. Dr. Mukesh MD I have performed a history and physical examination and medical decision making of this patient, discussed the same with the dictator, and agree with the dictators assessment and plan as written, documented as a scribe. Based on total visit time, I have performed more than 50% of this visit. Objective - Vital Signs Vital signs: Vital Signs Temp 99.3 F 07/26/24 15:45 Pulse 85 07/27/24 07:00 Resp 19 07/27/24 07:00 BP 102/57 07/27/24 07:00 Pulse Ox 97 07/27/24 07:00 FiO2 4 07/24/24 01:00 Intake & Output 07/26/24 07/27/24 07/27/24 18:59 06:59 18:59 Output Total 0 Balance 0 Weight 65.9 kg Output: Urine 0 Other: Voiding Method Toilet Toilet # Voids 0 2 # Bowel Movements 1 2 - Labs CBC & Chem 7: 07/27/24 03:56 07/27/24 15:54 Labs: Abnormal Lab Results - Last 24 Hours (Table) 07/27/24 07/27/24 Range/Units 03:56 04:00 WBC 14.05 H (4.50-10.00) 10*3/uL RBC 4.38 L (4.40-5.60) 10*6/uL Hct 38.6 L (39.6-50.0) % Immature Gran # 0.05 H (0.00-0.04) 10*3/uL Neutrophils # 10.15 H (1.80-7.70) 10*3/uL Monocytes # 1.65 H (0.20-1.00) 10*3/uL Sodium 126 L (137-145) mmol/L Potassium 3.3 L (3.5-5.1) mmol/L Chloride 87 L (98-107) mmol/L Glucose 123 H (74-99) mg/dL Magnesium 1.5 L (1.6-2.3) mg/dL Assessment and Plan Time with Patient: Less than 30
[2024-07-28 06:35] LABS: Basophils # (A) 0.04 10*3/uL (0.00-0.10); Basophils % (A) 0.3 %; Eosinophils # (A) 0.12 10*3/uL (0.04-0.35); HGB 12.9 g/dL (13.0-17.0); Lymphocytes # (A) 1.44 10*3/uL (0.90-5.00); MCH 30.4 pg (27.0-32.0); MCHC 34.9 g/dL (32.0-37.0); MCV 87.1 fL (80.0-97.0); Mean Platelet Volume 9.6 fL (9.5-12.2); Monocytes # (A) 1.64 10*3/uL (0.20-1.00); Monocytes % (A) 13.6 %; Neutrophils # (A) 8.74 10*3/uL (1.80-7.70); Neutrophils % (A) 72.5 %; Platelet Count 286 10*3/uL (140-440); RBC 4.25 10*6/uL (4.40-5.60); RDW 13.3 % (11.5-14.5); WBC 12.05 10*3/uL (4.50-10.00)
[2024-07-28 07:08] LABS: African American GFR (CKD) 87 (>60 ml/min/1.73 sqM); Anion Gap 8 mmol/L; Blood Urea Nitrogen 18 mg/dL (9-20); Calcium 8.6 mg/dL (8.4-10.2); Carbon Dioxide 30 mmol/L (22-30); Chloride 89 mmol/L (98-107); Glucose 116 mg/dL (74-99); Magnesium 1.9 mg/dL (1.6-2.3); Non-African American GFR(CKD) 75 (>60 ml/min/1.73 sqM); Potassium 3.7 mmol/L (3.5-5.1); Sodium 127 mmol/L (137-145)
[2024-07-28] MEDS: POTASSIUM CHLORIDE ER 20 MEQ TAB.ER PO STA (07:30)
--- NOTE | 2024-07-28 12:15 | P.PN ---
Subjective History of Present Illness: The patient is an 84-year-old male with a history of hypertension who presented with sudden onset chest discomfort radiating to the shoulder, not associated with any symptoms. In the emergency room he was found to have evidence of acute inferior wall myocardial infarction. Patient denies any prior history of CAD. He denies any exertional dyspnea or chest discomfort at baseline. He has no history of PND, orthopnea or peripheral edema. He has sinus bradycardia on presentation. He is a non-smoker and has no other cardiac past history. Medications: Blood pressure medication, he cannot recall 07/24 Patient seen and examined. Patient denies any chest pain or pressure. No significant shortness of breath. He underwent left heart catheterization which showed 100% stenosis of the distal RCA and mild to moderate disease of the left. Echocardiogram showed EF 25 to 30% with mild mitral regurgitation and RVSP 47. 07/25 Patient seen and examined. Patient had 1 episode of tachycardia with heart rate 115 which appears to be regular most consistent with SVT versus underlying slow atrial tachycardia/atrial flutter. He denies any chest pain or pressure. Denies any significant shortness of breath. Blood pressures been stable. Currently in sinus rhythm. Still at times somewhat confused and has a one-to-on e sitter. 07/26 Patient seen and examined. Patient feeling better and mentally more back to his normal self. One-to-one sitter has been discontinued. Blood pressures relatively stable. Still has had intermittent episodes of SVT which she states he is asymptomatic from. He had episode with heart rates in the 120s and 130s however no significant shortness of breath or lightheadedness. 07/27 Patient initially was cleared for discharge with outpatient monitor however went into A-fib/SVT with heart rates in the 160s and 170s. He was fairly asymptomatic however was persistent and therefore started on amiodarone drip. Patient had intermittent episodes however last 8 hours since this morning has been in normal rhythm. Denies any chest pain or pressure. No significant shortness of breath. 07/28 Patient seen and examined. Patient denies any chest pain or pressure. No significant shortness of breath. Overall feeling much better. Went for a walk today. Concern of continued hyponatremia. Heart rates in the 90s Physical Examination: 84-year-old male, alert oriented, having discomfort in the chest, hard of hearing. Evaluated in the cardiac catheterization laboratory,Blood pressure 103/70, Heart rate 48 Head: Normocephalic. Eyes: Sclerae nonicteric. Neck: Good carotid upstroke, no bruit, no jugular venous distention. Lungs: Clear to auscultation. Heart: Regular rate and rhythm, S1-S2, no S3, no rub. Systolic ejection murmur. Abdomen: Soft nontender, positive bowel sounds no organomegaly. Extremities: No edema, intact distal pulses. Impression: 1. Acute inferolateral myocardial infarction s/p PCI RCA 2. Persistent Afib 3. History of hypertension 4. Ischemic cardiomyopathy with EF 25-30% 5. Chronic systolic heart failure 6. SVT Plan: Continue with current regimen. Some of tachycardia may be causing tachycardia induced cardiomyopathy and therefore continue with rhythm control with amiodarone for now. Stable for discharge home from a cardiology standpoint. Objective - Vital Signs Vital signs: Vital Signs Temp 98.6 F 07/28/24 08:00 Pulse 100 07/28/24 08:00 Resp 20 07/28/24 08:00 BP 122/73 07/28/24 08:00 Pulse Ox 97 07/28/24 08:00 FiO2 4 07/24/24 01:00 Intake & Output 07/27/24 07/28/24 07/28/24 18:59 06:59 18:59 Intake Total 730 180 Output Total 200 400 300 Balance 530 -400 -120 Weight 64.9 kg Intake: Oral 730 180 Output: Urine 200 400 300 Other: Voiding Method Toilet Toilet # Voids 1 # Bowel Movements 1 - Labs CBC & Chem 7: 07/28/24 05:42 07/28/24 05:42 Labs: Abnormal Lab Results - Last 24 Hours (Table) 07/27/24 07/27/24 07/28/24 Range/Units 13:21 15:54 05:42 WBC (4.50-10.00) 10*3/uL RBC (4.40-5.60) 10*6/uL Hgb (13.0-17.0) g/dL Hct (39.6-50.0) % Immature Gran # (0.00-0.04) 10*3/uL Neutrophils # (1.80-7.70) 10*3/uL Monocytes # (0.20-1.00) 10*3/uL Sodium 127 L 127 L (137-145) mmol/L Chloride 89 L (98-107) mmol/L Glucose 116 H (74-99) mg/dL Urine Osmolality 183 L (400-1100) mOsm/kg 07/28/24 Range/Units 05:42 WBC 12.05 H (4.50-10.00) 10*3/uL RBC 4.25 L (4.40-5.60) 10*6/uL Hgb 12.9 L (13.0-17.0) g/dL Hct 37.0 L (39.6-50.0) % Immature Gran # 0.07 H (0.00-0.04) 10*3/uL Neutrophils # 8.74 H (1.80-7.70) 10*3/uL Monocytes # 1.64 H (0.20-1.00) 10*3/uL Sodium (137-145) mmol/L Chloride (98-107) mmol/L Glucose (74-99) mg/dL Urine Osmolality (400-1100) mOsm/kg
[2024-07-28] MEDS: UREA 15 GM POWD.PACK PO SCH (13:31)
--- NOTE | 2024-07-28 18:05 | P.PN ---
Subjective Patient is seen for follow-up for hyponatremia, hypervolemic and maintained on Lasix. Patient was also maintained on amiodarone drip on initial admission for A-fib with RVR. Currently off of amiodarone drip and serum sodium staying at about 127. Urine osmolality was low at 183. Patient is advised to increase oral intake. No significant complaints today. Objective - Vital Signs Vital signs: Vital Signs Temp 98.6 F 07/28/24 08:00 Pulse 95 07/28/24 16:00 Resp 20 07/28/24 16:00 BP 156/74 07/28/24 16:00 Pulse Ox 98 07/28/24 16:00 FiO2 4 07/24/24 01:00 Intake & Output 07/27/24 07/28/24 07/28/24 18:59 06:59 18:59 Intake Total 730 360 Output Total 200 400 300 Balance 530 -400 60 Weight 64.9 kg Intake: Oral 730 360 Output: Urine 200 400 300 Other: Voiding Method Toilet Toilet # Voids 1 2 # Bowel Movements 1 - Exam Patient is awake, comfortable, no acute distress Examination of the heart S1 and S2 Examination of the lungs bilateral breath sounds are heard Abdomen is soft nontender Examination of lower extremities shows no significant edema [employer] EQUIPMENT OPERATOR exam grossly intact - Labs CBC & Chem 7: 07/28/24 05:42 07/28/24 05:42 Labs: Abnormal Lab Results - Last 24 Hours (Table) 07/27/24 07/28/24 07/28/24 Range/Units 13:21 05:42 05:42 WBC 12.05 H (4.50-10.00) 10*3/uL RBC 4.25 L (4.40-5.60) 10*6/uL Hgb 12.9 L (13.0-17.0) g/dL Hct 37.0 L (39.6-50.0) % Immature Gran # 0.07 H (0.00-0.04) 10*3/uL Neutrophils # 8.74 H (1.80-7.70) 10*3/uL Monocytes # 1.64 H (0.20-1.00) 10*3/uL Sodium 127 L (137-145) mmol/L Chloride 89 L (98-107) mmol/L Glucose 116 H (74-99) mg/dL Urine Osmolality 183 L (400-1100) mOsm/kg Assessment and Plan Assessment: 1. Hyponatremia, currently euvolemic but evidence of hypervolemia about 2 days ago and currently maintained on low-dose loop diuretics. Patient was also maintained on amiodarone drip which is based in D5W and can potentiate hyponatremia. Poor oral intake and low urine solute contributing to hyponatremia. Urine osmolality is low at 183. TSH is within normal range. No urine retention. 2. Hypokalemia secondary to diuretics 3. Acute ST elevation [place] status post cardiac catheterization and right coronary artery stent placement on 07/24/2024 4. A-fib with RVR currently with controlled ventricular response, status post amiodarone drip. Plan: Continue with Lasix Add urea If serum sodium remains low tomorrow we can give 1 dose of Samsca. Patient is advised to increase oral protein intake. Continue off of IV fluids
[2024-07-28 22:15] LABS: Glucose,Whole Blood 139 mg/dL (70-110)
--- NOTE | 2024-07-28 22:46 | P.PN ---
Subjective Progress Note Date: 07/28/24 Patient 84-year-old male came with complaints of typical chest pain radiating to the shoulder found to be in ST elevation [place] in anteroinferiorly patient underwent cardiac authorization and stenting to RCA patient received 2 stents. Patient denied fever chills nausea vomiting abdominal pain dysuria at this time. Patient is otherwise clinically doing well patient denied any chest pain at this time patient has elevated troponin of 77. He had sinus bradycardia on presentation. 07/24/2024 Patient is bit confused secondary to ICU delirium. Patient is in atrial fibrillation with a rapid unclear rate patient was started on amiodarone patient is on beta-trang as well. Patient has mild pulmonary edema is on 2 L of oxygen patient is on 20 p.o. twice daily of Lasix was given a dose of Lasix by cardiology yesterday. Patient denied any chest pain at this time. Echocardiogram is still pending. REVIEW OF SYSTEMS: 07/25/2024 Patient is evaluated in the intensive care unit. at the bedside. Patient has no acute complaints at this time. He is status post stenting to the RCA. He has scattered wheezing noted on examination today. Ejection fraction comes back revealing an EF of 25 to 30%. He remains on oral Lasix 20 mg twice daily. Patient has not been up out of bed much. 07/26/2024 Patient is evaluated today in follow up in the ICU with family at the bedside. He has no acute complaints. He is status post stenting to the RCA. Remains on brilinta, aspirin, and eliquis with plans to continue on brilinta and eliquis on discharge. He worked with PT today with recommendations for return home on discharge. Heart rate did go up to 170 atrial fibrillation with ambulation and he has been started on oral amiodarone. Blood pressure 127/70. Sodium level today 127, potassium 3.2. 07/27/2024 Patient is evaluated today in follow up in the intensive care unit. He has been cleared by cardiology. Weaned off the cardizem gtt and heart rate is now controlled. Sodium level is 126, and 127. 07/28/2024 Patient is evaluated today in follow up. Sitting up in bed family at the bedside. He remains in normal sinus rhythm. Patient is anticoagulated with eliquis. Sodium level 127. Nephrology has started urea sodium. Event monitor was placed today as cardiology has recommending 1 week event monitor on discharge. Review of Systems Constitutional: Denied any fatigue denied any fever. Cardio vascular: denied any chest pain, palpitations Gastrointestinal: denied any nausea, vomiting, diarrhea Pulmonary: Denied any shortness of breath cough Neurologic denied any new focal deficits All inpatient medications were reviewed and appropriate changes in these medications as dictated in the interval history and assessment and plan. PHYSICAL EXAMINATION: GENERAL: The patient is alert and oriented x3, not in any acute distress. Well developed, well nourished. HEENT: Pupils are round and equally reacting to light. EOMI. No scleral icterus. No conjunctival pallor. Normocephalic, atraumatic. No pharyngeal erythema. No thyromegaly. CARDIOVASCULAR: S1 and S2 present. No murmurs, rubs, or gallops. PULMONARY: Scattered wheezing throughout ABDOMEN: Soft, nontender, nondistended, normoactive bowel sounds. No palpable organomegaly. MUSCULOSKELETAL: No joint swelling or deformity. EXTREMITIES: No cyanosis, clubbing, or pedal edema. NEUROLOGICAL: Gross neurological examination did not reveal any focal deficits. SKIN: No rashes. Assessment and plan -Acute non-ST elevation [place]: s/p stenting of the RCA -Atrial fibrillation with rapid ventricular rate: Patient is on oral metoprolol and oral eliquis. Rate controlled; he did go up to 170 with ambulation and has been started on IV amiodarone and since transitioned oral amiodarone. He is now in normal sinus rhythm Continue to monitor on cardiac telemetry. -Ischemic cardiomyopathy EF 25-30% -Hyponatremia hypervolemic. IV lasix x 1 given. Started on oral urea sodium. -Leukocytosis probably secondary to [place] patient white count improved although there is no clear evidence of infection at this time we will continue to monitor without any antibiotics at this time. WBC down to 12.05. - Acute hypoxic respiratory failure secondary to pulmonary edema congestive heart failure; resolved and currently on room air. - Acute pulmonary edema secondary to acute myocardial infarction with acute exacerbation -Hyperlipidemia -hypertension - Benign prostatic hypertrophy DVT prophylaxis : Eliquis No Code Patient has been transitioned to oral amiodarone. Continues on lasix 20 mg oral twice daily. Remains on cardiac telemetry. Heart rate now controlled. Nephrology following. Has been started on oral urea sodium. Downgraded from the ICU. Pota ssium has been supplemented. Repeat labs in the AM. The impression and plan of care has been dictated by Katarina Rodriguez Nurse Practitioner as directed. Dr. Mukesh MD I have performed a history and physical examination and medical decision making of this patient, discussed the same with the dictator, and agree with the dictators assessment and plan as written, documented as a scribe. Based on total visit time, I have performed more than 50% of this visit. Objective - Vital Signs Vital signs: Vital Signs Temp 98.3 F 07/28/24 19:39 Pulse 105 H 07/28/24 19:39 Resp 18 07/28/24 19:39 BP 130/72 07/28/24 19:39 Pulse Ox 99 07/28/24 19:39 FiO2 4 07/24/24 01:00 Intake & Output 07/28/24 07/28/24 07/29/24 06:59 18:59 06:59 Intake Total 360 Output Total 400 300 1 Balance -400 60 -1 Weight 64.9 kg Intake: Oral 360 Output: Urine 400 300 Stool 1 Other: Voiding Method Toilet Toilet # Voids 2 - Labs CBC & Chem 7: 07/28/24 05:42 07/28/24 05:42 Labs: Abnormal Lab Results - Last 24 Hours (Table) 07/27/24 07/28/24 07/28/24 Range/Units 13:21 05:42 05:42 WBC 12.05 H (4.50-10.00) 10*3/uL RBC 4.25 L (4.40-5.60) 10*6/uL Hgb 12.9 L (13.0-17.0) g/dL Hct 37.0 L (39.6-50.0) % Immature Gran # 0.07 H (0.00-0.04) 10*3/uL Neutrophils # 8.74 H (1.80-7.70) 10*3/uL Monocytes # 1.64 H (0.20-1.00) 10*3/uL Sodium 127 L (137-145) mmol/L Chloride 89 L (98-107) mmol/L Glucose 116 H (74-99) mg/dL POC Glucose (mg/dL) (70-110) mg/dL Urine Osmolality 183 L (400-1100) mOsm/kg 04/18/25 Range/Units 22:03 WBC (4.50-10.00) 10*3/uL RBC (4.40-5.60) 10*6/uL Hgb (13.0-17.0) g/dL Hct (39.6-50.0) % Immature Gran # (0.00-0.04) 10*3/uL Neutrophils # (1.80-7.70) 10*3/uL Monocytes # (0.20-1.00) 10*3/uL Sodium (137-145) mmol/L Chloride (98-107) mmol/L Glucose (74-99) mg/dL POC Glucose (mg/dL) 139 H (70-110) mg/dL Urine Osmolality (400-1100) mOsm/kg Assessment and Plan Time with Patient: Less than 30
[2024-07-28] MEDS: DEXTROSE 5% IN WATER 100 ML with AMIODARONE 150 MG IV ONE (22:53)
--- NOTE | 2024-07-28 22:55 | CT ---
EXAM: CT Head Without Intravenous Contrast CLINICAL HISTORY: ITS.REASON CT Reason: fall, mental status change, on thinners. TECHNIQUE: Axial computed tomography images of the head/brain without intravenous contrast. CTDI is 49.2 mGy and DLP is 1230.4 mGy-cm. This CT exam was performed using one or more of the following dose reduction techniques: automated exposure control, adjustment of the mA and/or kV according to patient size, and/or use of iterative reconstruction technique. COMPARISON: No relevant prior studies available. FINDINGS: Brain: Age-related parenchymal volume loss. Mild chronic small vessel ischemic change. Arguello-white matter differentiation maintained. No hemorrhage, mass effect, parenchymal edema, or midline shift. Ventricles: No hydrocephalus. Bones/joints: No acute fracture. Soft tissues: Unremarkable. Vasculature: Intracranial atherosclerosis. Sinuses: Unremarkable as visualized. Mastoid air cells: No significant mastoid effusion. IMPRESSION: No acute intracranial process.
--- NOTE | 2024-07-28 23:00 | XR ---
EXAM: XR Chest, 1 View CLINICAL HISTORY: ITS.REASON XR Reason: increasing oxygen demand TECHNIQUE: Frontal view of the chest. COMPARISON: 07/24/24 FINDINGS: Lungs: Decreased/resolved pulmonary interstitial edema when compared to prior. No airspace consolidation. Pleural space: No pleural effusion or pneumothorax. Heart: Stable cardiac size. Bones/joints: No acute fracture. No dislocation. IMPRESSION: Decreased/resolved pulmonary interstitial edema when compared to prior. No airspace consolidation.
[2024-07-28] MEDS: AMIODARONE 360 MG in DEXTROSE 5% IN WATER 200 ML IV ONE (23:04)
[2024-07-28 23:42] LABS: ALT 29 U/L (4-49); AST 37 U/L (17-59); African American GFR (CKD) 78 (>60 ml/min/1.73 sqM); Albumin 3.7 g/dL (3.5-5.0); Alkaline Phosphatase 64 U/L (38-126); Anion Gap 12 mmol/L; Blood Urea Nitrogen 55 mg/dL (9-20); Calcium 9.6 mg/dL (8.4-10.2); Carbon Dioxide 27 mmol/L (22-30); Chloride 89 mmol/L (98-107); Glucose 135 mg/dL (74-99); Magnesium 1.9 mg/dL (1.6-2.3); Non-African American GFR(CKD) 68 (>60 ml/min/1.73 sqM); Potassium 3.5 mmol/L (3.5-5.1); Sodium 128 mmol/L (137-145); Total Bilirubin 0.6 mg/dL (0.2-1.3); Total Protein 6.4 g/dL (6.3-8.2)
[2024-07-29] MEDS: POTASSIUM BICARBONATE/CIT AC 20 MEQ TABLET.EFF PO SCH (00:13)
[2024-07-29] MEDS: MAGNESIUM SULFATE-D5W PMX 1 GM in DEXTROSE/WATER 1 100ML.BAG IVPB ONE (00:13)
[2024-07-29] MEDS: AMIODARONE 450 MG in DEXTROSE 5% IN WATER 250 ML IV SCH (04:25)
[2024-07-29 06:23] LABS: Basophils # (A) 0.03 10*3/uL (0.00-0.10); Basophils % (A) 0.2 %; Eosinophils # (A) 0.14 10*3/uL (0.04-0.35); Eosinophils % (A) 1.1 %; HCT 34.8 % (39.6-50.0); HGB 12.2 g/dL (13.0-17.0); Lymphocytes # (A) 1.38 10*3/uL (0.90-5.00); Lymphocytes % (A) 11.3 %; MCH 30.5 pg (27.0-32.0); MCHC 35.1 g/dL (32.0-37.0); Mean Platelet Volume 9.5 fL (9.5-12.2); Monocytes # (A) 1.38 10*3/uL (0.20-1.00); Monocytes % (A) 11.3 %; Neutrophils # (A) 9.23 10*3/uL (1.80-7.70); Neutrophils % (A) 75.5 %; Platelet Count 257 10*3/uL (140-440); RDW 13.2 % (11.5-14.5); WBC 12.23 10*3/uL (4.50-10.00)
[2024-07-29 06:51] LABS: African American GFR (CKD) 85 (>60 ml/min/1.73 sqM); Anion Gap 9 mmol/L; Blood Urea Nitrogen 44 mg/dL (9-20); Calcium 8.7 mg/dL (8.4-10.2); Carbon Dioxide 29 mmol/L (22-30); Chloride 89 mmol/L (98-107); Glucose 130 mg/dL (74-99); Magnesium 2.1 mg/dL (1.6-2.3); Non-African American GFR(CKD) 73 (>60 ml/min/1.73 sqM); Potassium 3.6 mmol/L (3.5-5.1); Sodium 127 mmol/L (137-145)
[2024-07-29] MEDS: POTASSIUM CHLORIDE ER 20 MEQ TAB.ER PO SCH (08:37)
--- NOTE | 2024-07-29 09:40 | P.PN ---
Subjective Patient is seen in follow-up for hyponatremia. Sodium level 127 today. Oral intake fair. On amiodarone drip. Went into V. tach last night. Vital signs are stable. General: No acute distress. HEENT: Head exam is unremarkable. On nasal cannula. LUNGS: No audible rhonchi or wheezes. HEART: Rate and Rhythm are regular. ABDOMEN: Nontender. EXTREMITITES: No edema. Objective - Vital Signs Vital signs: Vital Signs Temp 98.1 F 07/29/24 08:00 Pulse 88 07/29/24 08:00 Resp 18 07/29/24 08:00 BP 142/68 07/29/24 08:00 Pulse Ox 98 07/29/24 08:00 FiO2 4 07/24/24 01:00 Intake & Output 07/28/24 07/29/24 07/29/24 18:59 06:59 18:59 Intake Total 360 50 Output Total 300 752 350 Balance 60 -752 -300 Weight 64.8 kg Intake: Oral 360 50 Output: Urine 300 750 350 Stool 2 Other: Voiding Method Toilet # Voids 2 1 1 - Labs CBC & Chem 7: 07/29/24 05:58 07/29/24 05:58 Labs: Abnormal Lab Results - Last 24 Hours (Table) 07/28/24 07/28/24 07/29/24 Range/Units 22:03 22:45 04:19 WBC (4.50-10.00) 10*3/uL RBC (4.40-5.60) 10*6/uL Hgb (13.0-17.0) g/dL Hct (39.6-50.0) % Immature Gran # (0.00-0.04) 10*3/uL Neutrophils # (1.80-7.70) 10*3/uL Monocytes # (0.20-1.00) 10*3/uL Sodium 128 L (137-145) mmol/L Chloride 89 L (98-107) mmol/L BUN 55 H (9-20) mg/dL Glucose 135 H (74-99) mg/dL POC Glucose (mg/dL) 139 H (70-110) mg/dL Troponin I 5.890 H* (0.000-0.034) ng/mL 07/29/24 07/29/24 07/29/24 Range/Units 05:58 05:58 07:52 WBC 12.23 H (4.50-10.00) 10*3/uL RBC 4.00 L (4.40-5.60) 10*6/uL Hgb 12.2 L (13.0-17.0) g/dL Hct 34.8 L (39.6-50.0) % Immature Gran # 0.07 H (0.00-0.04) 10*3/uL Neutrophils # 9.23 H (1.80-7.70) 10*3/uL Monocytes # 1.38 H (0.20-1.00) 10*3/uL Sodium 127 L (137-145) mmol/L Chloride 89 L (98-107) mmol/L BUN 44 H (9-20) mg/dL Glucose 130 H (74-99) mg/dL POC Glucose (mg/dL) (70-110) mg/dL Troponin I 6.250 H* (0.000-0.034) ng/mL Assessment and Plan Plan: Assessment: 1. Hyponatremia, slightly hypervolemic. Sodium level 127 today. Urine osmolality 183. 2. V. tach maintained on amiodarone drip. 3. Acute ST elevated myocardial infarction status post cardiac catheterization July 24, 2024 with 2 stents placed. 4. Cardiomyopathy ejection fraction of 25 to 30% with moderate pulmonary hypertension. Plan: Maintain Lasix. Maintain urea. Encouraged oral intake. Samsca x 1 dose today. Repeat labs in the morning.
--- NOTE | 2024-07-29 11:56 | P.PN ---
Subjective Progress Note Date: 07/29/24 History of Present Illness: The patient is an 84-year-old male with a history of hypertension who presented with sudden onset chest discomfort radiating to the shoulder, not associated with any symptoms. In the emergency room he was found to have evidence of acute inferior wall myocardial infarction. Patient denies any prior history of CAD. He denies any exertional dyspnea or chest discomfort at baseline. He has no history of PND, orthopnea or peripheral edema. He has sinus bradycardia on presentation. He is a non-smoker and has no other cardiac past history. Medications: Blood pressure medication, he cannot recall 07/24 Patient seen and examined. Patient denies any chest pain or pressure. No significant shortness of breath. He underwent left heart catheterization which showed 100% stenosis of the distal RCA and mild to moderate disease of the left. Echocardiogram showed EF 25 to 30% with mild mitral regurgitation and RVSP 47. 07/25 Patient seen and examined. Patient had 1 episode of tachycardia with heart rate 115 which appears to be regular most consistent with SVT versus underlying slow atrial tachycardia/atrial flutter. He denies any chest pain or pressure. Denies any significant shortness of breath. Blood pressures been stable. Currently in sinus rhythm. Still at times somewhat confused and has a one-to-one sitter. 07/26 Patient seen and examined. Patient feeling better and mentally more back to his normal self. One-to-one sitter has been discontinued. Blood pressures relatively stable. Still has had intermittent episodes of SVT which she states he is asymptomatic from. He had episode with heart rates in the 120s and 130s however no significant shortness of breath or lightheadedness. 07/27 Patient initially was cleared for discharge with outpatient monitor however went into A-fib/SVT with heart rates in the 160s and 170s. He was fairly asymptomati c however was persistent and therefore started on amiodarone drip. Patient had intermittent episodes however last 8 hours since this morning has been in normal rhythm. Denies any chest pain or pressure. No significant shortness of breath. 07/28 Patient seen and examined. Patient denies any chest pain or pressure. No significant shortness of breath. Overall feeling much better. Went for a walk today. Concern of continued hyponatremia. Heart rates in the 90s 07/29 Patient resting in bed, no new complaints. Denies any chest pain or pressure. No shortness of breath or dizziness. Patient did have a fall overnight, found on the ground, appears to have had VT on monitor. Head CT was negative for any acute findings. Heart rates remain 80s/90s. Labs reviewed: WBC 12.2, hemoglobin 12.2, sodium 127, potassium 3.6, creatinine 0.96. Physical Examination: 84-year-old male, alert oriented, having discomfort in the chest, hard of hearing. Head: Normocephalic. Eyes: Sclerae nonicteric. Neck: Good carotid upstroke, no bruit, no jugular venous distention. Lungs: Clear to auscultation. Heart: Regular rate and rhythm, S1-S2, no S3, no rub. Systolic ejection murmur. Abdomen: Soft nontender, positive bowel sounds Extremities: No edema, intact distal pulses. Impression: 1. Acute inferolateral myocardial infarction s/p PCI RCA 2. Persistent Afib 3. History of hypertension 4. Ischemic cardiomyopathy with EF 25-30% 5. Chronic systolic heart failure 6. SVT 7. Syncope, fall Plan: He is having more VT episodes and found down last night. Discussed EP evaluation for possible AICD. May also consider Life Vest. Check limited ECHO to eval EF. Continue with current regimen. Some of tachycardia may be causing tachycardia induced cardiomyopathy and therefore continue with rhythm control with amiodarone for now. Will continue to monitor. Objective - Vital Signs Vital signs: Vital Signs Temp 97.8 F 07/29/24 03:16 Pulse 86 07/29/24 03:16 Resp 18 07/29/24 03:16 BP 111/67 07/29/24 03:16 Pulse Ox 98 07/29/24 03:16 FiO2 4 07/24/24 01:00 Intake & Output 07/28/24 07/28/24 07/29/24 06:59 18:59 06:59 Intake Total 360 Output Total 400 300 752 Balance -400 60 -752 Weight 64.9 kg 64.8 kg Intake: Oral 360 Output: Urine 400 300 750 Stool 2 Other: Voiding Method Toilet Toilet # Voids 2 1 - Labs CBC & Chem 7: 07/29/24 05:58 07/29/24 05:58 Labs: Abnormal Lab Results - Last 24 Hours (Table) 07/28/24 07/28/24 07/28/24 Range/Units 05:42 22:03 22:45 WBC (4.50-10.00) 10*3/uL RBC (4.40-5.60) 10*6/uL Hgb (13.0-17.0) g/dL Hct (39.6-50.0) % Immature Gran # (0.00-0.04) 10*3/uL Neutrophils # (1.80-7.70) 10*3/uL Monocytes # (0.20-1.00) 10*3/uL Sodium 127 L 128 L (137-145) mmol/L Chloride 89 L 89 L (98-107) mmol/L BUN 55 H (9-20) mg/dL Glucose 116 H 135 H (74-99) mg/dL POC Glucose (mg/dL) 139 H (70-110) mg/dL Troponin I (0.000-0.034) ng/mL 07/29/24 07/29/24 Range/Units 04:19 05:58 WBC 12.23 H (4.50-10.00) 10*3/uL RBC 4.00 L (4.40-5.60) 10*6/uL Hgb 12.2 L (13.0-17.0) g/dL Hct 34.8 L (39.6-50.0) % Immature Gran # 0.07 H (0.00-0.04) 10*3/uL Neutrophils # 9.23 H (1.80-7.70) 10*3/uL Monocytes # 1.38 H (0.20-1.00) 10*3/uL Sodium (137-145) mmol/L Chloride (98-107) mmol/L BUN (9-20) mg/dL Glucose (74-99) mg/dL POC Glucose (mg/dL) (70-110) mg/dL Troponin I 5.890 H* (0.000-0.034) ng/mL
[2024-07-29] MEDS: TOLVAPTAN 15 MG TABLET PO ONE (12:48)
--- NOTE | 2024-07-29 13:38 | P.PN ---
Subjective Progress Note Date: 07/29/24 Patient 84-year-old male came with complaints of typical chest pain radiating to the shoulder found to be in ST elevation HI in anteroinferiorly patient underwent cardiac authorization and stenting to RCA patient received 2 stents. Patient denied fever chills nausea vomiting abdominal pain dysuria at this time. Patient is otherwise clinically doing well patient denied any chest pain at this time patient has elevated troponin of 77. He had sinus bradycardia on presentation. 07/24/2024 Patient is bit confused secondary to ICU delirium. Patient is in atrial fibrillation with a rapid unclear rate patient was started on amiodarone patient is on beta-trang as well. Patient has mild pulmonary edema is on 2 L of oxygen patient is on 20 p.o. twice daily of Lasix was given a dose of Lasix by cardiology yesterday. Patient denied any chest pain at this time. Echocardiogram is still pending. REVIEW OF SYSTEMS: 07/25/2024 Patient is evaluated in the intensive care unit. at the bedside. Patient has no acute complaints at this time. He is status post stenting to the RCA. He has scattered wheezing noted on examination today. Ejection fraction comes back revealing an EF of 25 to 30%. He remains on oral Lasix 20 mg twice daily. Patient has not been up out of bed much. 07/26/2024 Patient is evaluated today in follow up in the ICU with family at the bedside. He has no acute complaints. He is status post stenting to the RCA. Remains on brilinta, aspirin, and eliquis with plans to continue on brilinta and eliquis on discharge. He worked with PT today with recommendations for return home on discharge. Heart rate did go up to 170 atrial fibrillation with ambulation and he has been started on oral amiodarone. Blood pressure 127/70. Sodium level today 127, potassium 3.2. 07/27/2024 Patient is evaluated today in follow up in the intensive care unit. He has been cleared by cardiology. Weaned off the cardizem gtt and heart rate is now controlled. Sodium level is 126, and 127. 07/28/2024 Patient is evaluated today in follow up. Sitting up in bed family at the bedside. He remains in normal sinus rhythm. Patient is anticoagulated with eliquis. Sodium level 127. Nephrology has started urea sodium. Event monitor was placed today as cardiology has recommending 1 week event monitor on discharge. 07/29. Patient seen and examined. Blood work done showed WBC 12.23, hemoglobin 12.2, sodium 127, potassium 3.2, BUN 44, creatinine 0.96. Patient had episode of V. tach overnight, patient was started on amiodarone this morning. sodium level this morning is 127, nephrology ordered [facility] REVIEW OF SYSTEMS: CONSTITUTIONAL: No fever, no malaise,. CARDIOVASCULAR: No chest pain, no palpitations, no syncope. PULMONARY: No shortness of breath, no cough, GASTROINTESTINAL: No diarrhea, no nausea, no vomiting, no abdominal pain. NEUROLOGICAL: No headaches, no weakness, PHYSICAL EXAMINATION: GENERAL: The patient is alert and oriented x3, chronically ill HEENT: Pupils are round and equally reacting to light. EOMI. No scleral icterus. No conjunctival pallor. Normocephalic, atraumatic. No pharyngeal erythema. No thyromegaly. CARDIOVASCULAR: S1 and S2 present. No murmurs, rubs, or gallops. PULMONARY: Chest is clear to auscultation, no wheezing or crackles. ABDOMEN: Soft, nontender, nondistended, normoactive bowel sounds. No palpable organomegaly. MUSCULOSKELETAL: No joint swelling or deformity. EXTREMITIES: No cyanosis, clubbing, or pedal edema. NEUROLOGICAL: Gross neurological examination did not reveal any focal deficits. SKIN: No rashes. Assessment and plan -Acute non-ST elevation HI: s/p stenting of the RCA. Continue aspirin, Brilinta. Cardiology following -Atrial fibrillation with rapid ventricular rate Episodes of V. tach Ischemic cardiomyopathy EF of 25 to 30% Continue telemetry monitoring continue Eliquis, Lopressor, amiodarone Cardiology will discuss with EP regarding AICD versus LifeVest -Hyponatremia hypervolemic. Continue oral urea sodium. Continue Lasix 20 mg twice daily. Patient received tolvaptan this morning. nephrology following -Leukocytosis probably secondary to HI patient white count improved although there is no clear evidence of infection at this time we will continue to monitor without any antibiotics at this time. WBC down to 12.05. - Acute hypoxic respiratory failure secondary to pulmonary edema congestive heart failure; resolved and currently on room air. - Acute pulmonary edema secondary to acute myocardial infarction with acute e xacerbation -Hyperlipidemia continue Lipitor -hypertension; continue Lopressor, lisinopril, Aldactone - Benign prostatic hypertrophy Labs and medication were reviewed.. Continue same treatment. Continue with symptomatic treatment. Resume home medication. Monitor labs and vitals. DVT and GI prophylaxis. Further recommendations as per clinical course of the patient Dictation was produced using [employer] dictation software. please excuse any grammatical, word or spelling errors. Objective - Vital Signs Vital signs: Vital Signs Temp 98.1 F 07/29/24 08:00 Pulse 88 07/29/24 08:00 Resp 18 07/29/24 08:00 BP 142/68 07/29/24 08:00 Pulse Ox 98 07/29/24 08:00 FiO2 4 07/24/24 01:00 Intake & Output 07/28/24 07/29/24 07/29/24 18:59 06:59 18:59 Intake Total 360 50 Output Total 300 752 350 Balance 60 -752 -300 Weight 64.8 kg Intake: Oral 360 50 Output: Urine 300 750 350 Stool 2 Other: Voiding Method Toilet # Voids 2 1 1 - Labs CBC & Chem 7: 07/29/24 05:58 07/29/24 05:58 Labs: Abnormal Lab Results - Last 24 Hours (Table) 07/28/24 07/28/24 07/29/24 Range/Units 22:03 22:45 04:19 WBC (4.50-10.00) 10*3/uL RBC (4.40-5.60) 10*6/uL Hgb (13.0-17.0) g/dL Hct (39.6-50.0) % Immature Gran # (0.00-0.04) 10*3/uL Neutrophils # (1.80-7.70) 10*3/uL Monocytes # (0.20-1.00) 10*3/uL Sodium 128 L (137-145) mmol/L Chloride 89 L (98-107) mmol/L BUN 55 H (9-20) mg/dL Glucose 135 H (74-99) mg/dL POC Glucose (mg/dL) 139 H (70-110) mg/dL Troponin I 5.890 H* (0.000-0.034) ng/mL 07/29/24 07/29/24 07/29/24 Range/Units 05:58 05:58 07:52 WBC 12.23 H (4.50-10.00) 10*3/uL RBC 4.00 L (4.40-5.60) 10*6/uL Hgb 12.2 L (13.0-17.0) g/dL Hct 34.8 L (39.6-50.0) % Immature Gran # 0.07 H (0.00-0.04) 10*3/uL Neutrophils # 9.23 H (1.80-7.70) 10*3/uL Monocytes # 1.38 H (0.20-1.00) 10*3/uL Sodium 127 L (137-145) mmol/L Chloride 89 L (98-107) mmol/L BUN 44 H (9-20) mg/dL Glucose 130 H (74-99) mg/dL POC Glucose (mg/dL) (70-110) mg/dL Troponin I 6.250 H* (0.000-0.034) ng/mL
[2024-07-29] MEDS: QUEtiapine 25 MG TAB PO PRN (23:01)
[2024-07-30 07:18] LABS: Basophils # (A) 0.06 10*3/uL (0.00-0.10); Basophils % (A) 0.5 %; Eosinophils % (A) 1.5 %; HCT 37.6 % (39.6-50.0); HGB 12.7 g/dL (13.0-17.0); Lymphocytes # (A) 2.73 10*3/uL (0.90-5.00); MCH 30.1 pg (27.0-32.0); MCHC 33.8 g/dL (32.0-37.0); MCV 89.1 fL (80.0-97.0); Mean Platelet Volume 9.6 fL (9.5-12.2); Monocytes # (A) 1.74 10*3/uL (0.20-1.00); Monocytes % (A) 13.4 %; Neutrophils # (A) 8.17 10*3/uL (1.80-7.70); Neutrophils % (A) 62.9 %; Platelet Count 316 10*3/uL (140-440); RBC 4.22 10*6/uL (4.40-5.60); RDW 13.2 % (11.5-14.5); WBC 12.99 10*3/uL (4.50-10.00)
[2024-07-30 07:32] LABS: African American GFR (CKD) 55 (>60 ml/min/1.73 sqM); Anion Gap 6 mmol/L; Blood Urea Nitrogen 56 mg/dL (9-20); Calcium 9.4 mg/dL (8.4-10.2); Carbon Dioxide 33 mmol/L (22-30); Chloride 92 mmol/L (98-107); Glucose 118 mg/dL (74-99); Magnesium 2.2 mg/dL (1.6-2.3); Non-African American GFR(CKD) 47 (>60 ml/min/1.73 sqM); Potassium 4.1 mmol/L (3.5-5.1); Sodium 131 mmol/L (137-145)
--- NOTE | 2024-07-30 10:45 | P.PN ---
Subjective Patient is seen in follow-up for hyponatremia. Sodium level 131 today. Oral intake fair. On amiodarone orally now. Denies chest pain or shortness of breath. Vital signs are stable. General: No acute distress. HEENT: Head exam is unremarkable. On room air. LUNGS: No audible rhonchi or wheezes. HEART: Rate and Rhythm are regular. ABDOMEN: Nontender. EXTREMITITES: No edema. Objective - Vital Signs Vital signs: Vital Signs Temp 98.8 F 07/30/24 08:15 Pulse 87 07/30/24 08:15 Resp 18 07/30/24 08:15 BP 136/72 07/30/24 08:15 Pulse Ox 95 07/30/24 08:15 FiO2 4 07/24/24 01:00 Intake & Output 07/29/24 07/30/24 07/30/24 18:59 06:59 18:59 Intake Total 290 301.668 Output Total 851 950 501 Balance -561 -648.332 -501 Weight 63.4 kg Intake: Intake, IV Titration 301.668 Amount Amiodarone 450 mg In 301.668 Dextrose 5% in Water 250 ml @ 0.5 MG/MIN 16.667 mls/hr IV .Q15H [facility] Rx#: [id number] Oral 290 Output: Urine 850 950 500 Stool 1 1 Other: Voiding Method Toilet Toilet # Voids 1 - Labs CBC & Chem 7: 07/30/24 07:04 07/30/24 07:04 Labs: Abnormal Lab Results - Last 24 Hours (Table) 07/29/24 07/30/24 07/30/24 Range/Units 11:00 07:04 07:04 WBC 12.99 H (4.50-10.00) 10*3/uL RBC 4.22 L (4.40-5.60) 10*6/uL Hgb 12.7 L (13.0-17.0) g/dL Hct 37.6 L (39.6-50.0) % Immature Gran # 0.09 H (0.00-0.04) 10*3/uL Neutrophils # 8.17 H (1.80-7.70) 10*3/uL Monocytes # 1.74 H (0.20-1.00) 10*3/uL Sodium 131 L (137-145) mmol/L Chloride 92 L (98-107) mmol/L Carbon Dioxide 33 H (22-30) mmol/L BUN 56 H (9-20) mg/dL Creatinine 1.37 H (0.66-1.25) mg/dL Glucose 118 H (74-99) mg/dL Troponin I 5.040 H* (0.000-0.034) ng/mL Assessment and Plan Plan: Assessment: 1. Hyponatremia, slightly hypervolemic. Sodium level 131 today. Urine osm olality 183. TSH normal. 2. V. tach status post amiodarone drip. Now on oral meds. 3. Acute ST elevated myocardial infarction status post cardiac catheterization July 24, 2024 with 2 stents placed. 4. Cardiomyopathy ejection fraction of 25 to 30% with moderate pulmonary hypertension. 5. Acute kidney injury secondary to hemodynamic ATN and cardiorenal syndrome. Creatinine 1.37 today. Baseline creatinine near 1. UA benign. 6. Volume overload. Plan: Maintain Lasix. Maintain urea. Encouraged oral intake. Status post Samsca given July 29, 2024. Repeat labs in the morning. Follow-up echocardiogram.
--- NOTE | 2024-07-30 12:14 | CA ---
Transthoracic Echo Report Name: Epi Lloyd Age: 84 Gender: M : 1940 Exam Date: 07/29/2024 15:01 Exam Location: [place] [facility] Ht (in): 65 Wt (lb): 142 Ordering Physician: Sara Jansen Attending/Referring Phys: Winding Inspector Eliana Jones RDCS Procedure CPT: Indications: VT, re-eval EF Cardiac Hx: Limited for LVEF, last prior 07/23/24 Technical Quality: Technically difficult study Contrast 1: Definity Total Dose (mL): 3 Contrast 2: Total Dose (mL): MEASUREMENTS (Male / Female) Normal Values 2D ECHO LV Diastolic Diameter PLAX 4.3 cm 4.2 - 5.9 / 3.9 - 5.3 cm LV Systolic Diameter PLAX 3.6 cm IVS Diastolic Thickness 0.8 cm 0.6 - 1.0 / 0.6 - 0.9 cm LVPW Diastolic Thickness 0.9 cm 0.6 - 1.0 / 0.6 - 0.9 cm LV Relative Wall Thickness 0.4 LV Diastolic Volume MOD BP 127.1 cm??? 67 - 155 / 56 - 104 cm??? LV Systolic Volume MOD BP 92.8 cm??? 22 - 58 / 19 - 49 cm??? LV Ejection Fraction MOD BP 27.0 % >= 55 % [place] [address].8 cm???/min???m??? LV Diastolic Volume MOD 4C 120.9 cm??? LV Systolic Volume MOD 4C 92.3 cm??? LV Ejection Fraction MOD 4C 23.7 % LV Cardiac Index MOD 4C 48481.1 cm???/min???m??? LV Diastolic Length 4C 8.3 cm LV Systolic Length 4C 8.1 cm LV Diastolic Volume MOD 2C 122.7 cm??? LV Systolic Volume MOD 2C 91.8 cm??? LV Ejection Fraction MOD 2C 25.1 % LV Cardiac Index MOD 2C 95679.8 cm???/min???m??? LV Diastolic Length 2C 9.0 cm LV Systolic Length 2C 8.3 cm FINDINGS Left Ventricle Left ventricular ejection fraction is estimated at 25-30 %. Severely increased left ventricular systolic volume. Severely decreased left ventricular ejection fraction. Left ventricular wall thickness normal. Severely reduced global left ventricular systolic function. Right Ventricle Right Atrium Left Atrium Mitral Valve Aortic Valve Tricuspid Valve Pulmonic Valve Pericardium Trace pericardial effusion. Aorta CONCLUSIONS Right ventricular ejection fraction 25 to 30% with inferior hypokinesis Trace pericardial effusion Previewed by: Dr. Ar Bourgeois DO (Electronically Signed) Final Date: 30 July 2024 12:14
--- NOTE | 2024-07-30 12:33 | P.PN ---
Subjective Progress Note Date: 07/30/24 History of Present Illness: The patient is an 84-year-old male with a history of hypertension who presented with sudden onset chest discomfort radiating to the shoulder, not associated with any symptoms. In the emergency room he was found to have evidence of acute inferior wall myocardial infarction. Patient denies any prior history of CAD. He denies any exertional dyspnea or chest discomfort at baseline. He has no history of PND, orthopnea or peripheral edema. He has sinus bradycardia on presentation. He is a non-smoker and has no other cardiac past history. Medications: Blood pressure medication, he cannot recall 07/24 Patient seen and examined. Patient denies any chest pain or pressure. No significant shortness of breath. He underwent left heart catheterization which showed 100% stenosis of the distal RCA and mild to moderate disease of the left. Echocardiogram showed EF 25 to 30% with mild mitral regurgitation and RVSP 47. 07/25 Patient seen and examined. Patient had 1 episode of tachycardia with heart rate 115 which appears to be regular most consistent with SVT versus underlying slow atrial tachycardia/atrial flutter. He denies any chest pain or pressure. Denies any significant shortness of breath. Blood pressures been stable. Currently in sinus rhythm. Still at times somewhat confused and has a one-to-one sitter. 07/26 Patient seen and examined. Patient feeling better and mentally more back to his normal self. One-to-one sitter has been discontinued. Blood pressures relatively stable. Still has had intermittent episodes of SVT which she states he is asymptomatic from. He had episode with heart rates in the 120s and 130s however no significant shortness of breath or lightheadedness. 07/27 Patient initially was cleared for discharge with outpatient monitor however went into A-fib/SVT with heart rates in the 160s and 170s. He was fairly asymptomati c however was persistent and therefore started on amiodarone drip. Patient had intermittent episodes however last 8 hours since this morning has been in normal rhythm. Denies any chest pain or pressure. No significant shortness of breath. 07/28 Patient seen and examined. Patient denies any chest pain or pressure. No significant shortness of breath. Overall feeling much better. Went for a walk today. Concern of continued hyponatremia. Heart rates in the 90s 07/29 Patient resting in bed, no new complaints. Denies any chest pain or pressure. No shortness of breath or dizziness. Patient did have a fall overnight, found on the ground, appears to have had VT on monitor. Head CT was negative for any acute findings. Heart rates remain 80s/90s. Labs reviewed: WBC 12.2, hemoglobin 12.2, sodium 127, potassium 3.6, creatinine 0.96. 07/30 He is still having some confusion and drowsy. Creat 1.37, Na 131. Noted echo shows EF 25-30% Physical Examination: 84-year-old male, alert oriented, having discomfort in the chest, hard of hearing. Head: Normocephalic. Eyes: Sclerae nonicteric. Neck: Good carotid upstroke, no bruit, no jugular venous distention. Lungs: Clear to auscultation. Heart: Regular rate and rhythm, S1-S2, no S3, no rub. Systolic ejection murmur. Abdomen: Soft nontender, positive bowel sounds Extremities: No edema, intact distal pulses. Impression: 1. Acute inferolateral myocardial infarction s/p PCI RCA 2. Persistent Afib 3. History of hypertension 4. Ischemic cardiomyopathy with EF 25-30% 5. Chronic systolic heart failure 6. SVT 7. Syncope, fall Plan: He does appear worse today with increased drowsiness and confusion. Discussed EP evaluation for possible AICD, however, will hold off as patient appears to be a poor candidate currently. Likely consider Life Vest. Limited echo shows EF 25-30%. Continue with current regimen. Some of tachycardia may be causing tachycardia induced cardiomyopathy and therefore continue with rhythm control w ith amiodarone p.o. for now. Will continue to monitor. Patient seen and examined in rounds with Dr. Bourgeois, plan of care agreed upon. Objective - Vital Signs Vital signs: Vital Signs Temp 98.8 F 07/30/24 08:15 Pulse 87 07/30/24 08:15 Resp 18 07/30/24 08:15 BP 136/72 07/30/24 08:15 Pulse Ox 95 07/30/24 08:15 FiO2 4 07/24/24 01:00 Intake & Output 07/29/24 07/30/24 07/30/24 18:59 06:59 18:59 Intake Total 290 301.668 Output Total 851 950 501 Balance -561 -648.332 -501 Weight 63.4 kg Intake: Intake, IV Titration 301.668 Amount Amiodarone 450 mg In 301.668 Dextrose 5% in Water 250 ml @ 0.5 MG/MIN 16.667 mls/hr IV .Q15H [facility] Rx#: [id number] Oral 290 Output: Urine 850 950 500 Stool 1 1 Other: Voiding Method Toilet Toilet # Voids 1 - Labs CBC & Chem 7: 07/30/24 07:04 07/30/24 07:04 Labs: Abnormal Lab Results - Last 24 Hours (Table) 07/29/24 07/30/24 07/30/24 Range/Units 11:00 07:04 07:04 WBC 12.99 H (4.50-10.00) 10*3/uL RBC 4.22 L (4.40-5.60) 10*6/uL Hgb 12.7 L (13.0-17.0) g/dL Hct 37.6 L (39.6-50.0) % Immature Gran # 0.09 H (0.00-0.04) 10*3/uL Neutrophils # 8.17 H (1.80-7.70) 10*3/uL Monocytes # 1.74 H (0.20-1.00) 10*3/uL Sodium 131 L (137-145) mmol/L Chloride 92 L (98-107) mmol/L Carbon Dioxide 33 H (22-30) mmol/L BUN 56 H (9-20) mg/dL Creatinine 1.37 H (0.66-1.25) mg/dL Glucose 118 H (74-99) mg/dL Troponin I 5.040 H* (0.000-0.034) ng/mL
--- NOTE | 2024-07-30 13:39 | P.PN ---
Subjective Progress Note Date: 07/30/24 Patient 84-year-old male came with complaints of typical chest pain radiating to the shoulder found to be in ST elevation DE in anteroinferiorly patient underwent cardiac authorization and stenting to RCA patient received 2 stents. Patient denied fever chills nausea vomiting abdominal pain dysuria at this time. Patient is otherwise clinically doing well patient denied any chest pain at this time patient has elevated troponin of 77. He had sinus bradycardia on presentation. 07/24/2024 Patient is bit confused secondary to ICU delirium. Patient is in atrial fibrillation with a rapid unclear rate patient was started on amiodarone patient is on beta-trang as well. Patient has mild pulmonary edema is on 2 L of oxygen patient is on 20 p.o. twice daily of Lasix was given a dose of Lasix by cardiology yesterday. Patient denied any chest pain at this time. Echocardiogram is still pending. REVIEW OF SYSTEMS: 07/25/2024 Patient is evaluated in the intensive care unit. at the bedside. Patient has no acute complaints at this time. He is status post stenting to the RCA. He has scattered wheezing noted on examination today. Ejection fraction comes back revealing an EF of 25 to 30%. He remains on oral Lasix 20 mg twice daily. Patient has not been up out of bed much. 07/26/2024 Patient is evaluated today in follow up in the ICU with family at the bedside. He has no acute complaints. He is status post stenting to the RCA. Remains on brilinta, aspirin, and eliquis with plans to continue on brilinta and eliquis on discharge. He worked with PT today with recommendations for return home on discharge. Heart rate did go up to 170 atrial fibrillation with ambulation and he has been started on oral amiodarone. Blood pressure 127/70. Sodium level today 127, potassium 3.2. 07/27/2024 Patient is evaluated today in follow up in the intensive care unit. He has been cleared by cardiology. Weaned off the cardizem gtt and heart rate is now controlled. Sodium level is 126, and 127. 07/28/2024 Patient is evaluated today in follow up. Sitting up in bed family at the bedside. He remains in normal sinus rhythm. Patient is anticoagulated with eliquis. Sodium level 127. Nephrology has started urea sodium. Event monitor was placed today as cardiology has recommending 1 week event monitor on discharge. 07/29. Patient seen and examined. Blood work done showed WBC 12.23, hemoglobin 12.2, sodium 127, potassium 3.2, BUN 44, creatinine 0.96. Patient had episode of V. tach overnight, patient was started on amiodarone this morning. sodium level this morning is 127, nephrology ordered Samsca 07/30. Patient seen examined. Labs reviewed showed WBC 12.99, hemoglobin 12.7, sodium 131, potassium 4.1, BUN 56, creatinine 1.37. States he feels better. Family states patient is more alert, more responsive REVIEW OF SYSTEMS: CONSTITUTIONAL: No fever, no malaise,. CARDIOVASCULAR: No chest pain, no palpitations, no syncope. PULMONARY: No shortness of breath, no cough, GASTROINTESTINAL: No diarrhea, no nausea, no vomiting, no abdominal pain. NEUROLOGICAL: No headaches, no weakness, PHYSICAL EXAMINATION: GENERAL: The patient is alert and oriented x3, chronically ill HEENT: Pupils are round and equally reacting to light. EOMI. No scleral icterus. No conjunctival pallor. Normocephalic, atraumatic. No pharyngeal erythema. No thyromegaly. CARDIOVASCULAR: S1 and S2 present. No murmurs, rubs, or gallops. PULMONARY: Chest is clear to auscultation, no wheezing or crackles. ABDOMEN: Soft, nontender, nondistended, normoactive bowel sounds. No palpable organomegaly. MUSCULOSKELETAL: No joint swelling or deformity. EXTREMITIES: No cyanosis, clubbing, or pedal edema. NEUROLOGICAL: Gross neurological examination did not reveal any focal deficits. SKIN: No rashes. Assessment and plan -Acute non-ST elevation DE: s/p stenting of the RCA. Continue aspirin, Brilinta. Cardiology following -Atrial fibrillation with rapid ventricular rate Episodes of V. tach Ischemic cardiomyopathy EF of 25 to 30% Continue telemetry monitoring continue Eliquis, Lopressor, amiodarone Cardiology will discuss with EP regarding AICD versus LifeVest -Hyponatremia hypervolemic. Continue oral urea sodium. Continue Lasix 20 mg twice daily. nephrology following -Leukocytosis probably secondary to DE patient; monitor CBC - Acute hypoxic respiratory failure secondary to pulmonary edema congestive heart failure; resolved and currently on room air. - Acute pulmonary edema secondary to acute myocardial infarction with acute exacerbation -Hyperlipidemia continue Lipitor -hypertension; continue Lopressor, lisinopril, Aldactone - Benign prostatic hypertrophy Labs and medication were reviewed.. Continue same treatment. Continue with symptomatic treatment. Resume home medication. Monitor labs and vitals. DVT and GI prophylaxis. Further recommendations as per clinical course of the patient Dictation was produced using [email or web address] dictation software. please excuse any grammatical, word or spelling errors. Objective - Vital Signs Vital signs: Vital Signs Temp 98.8 F 07/30/24 08:15 Pulse 87 07/30/24 08:15 Resp 18 07/30/24 08:15 BP 136/72 07/30/24 08:15 Pulse Ox 95 07/30/24 08:15 FiO2 4 07/24/24 01:00 Intake & Output 07/29/24 07/30/24 07/30/24 18:59 06:59 18:59 Intake Total 290 301.668 Output Total 851 950 501 Balance -561 -648.332 -501 Weight 63.4 kg Intake: Intake, IV Titration 301.668 Amount Amiodarone 450 mg In 301.668 Dextrose 5% in Water 250 ml @ 0.5 MG/MIN 16.667 mls/hr IV .Q15H [facility] Rx#: [id number] Oral 290 Output: Urine 850 950 500 Stool 1 1 Other: Voiding Method Toilet Toilet # Voids 1 - Labs CBC & Chem 7: 07/30/24 07:04 07/30/24 07:04 Labs: Abnormal Lab Results - Last 24 Hours (Table) 07/29/24 07/30/24 07/30/24 Range/Units 11:00 07:04 07:04 WBC 12.99 H (4.50-10.00) 10*3/uL RBC 4.22 L (4.40-5.60) 10*6/uL Hgb 12.7 L (13.0-17.0) g/dL Hct 37.6 L (39.6-50.0) % Immature Gran # 0.09 H (0.00-0.04) 10*3/uL Neutrophils # 8.17 H (1.80-7.70) 10*3/uL Monocytes # 1.74 H (0.20-1.00) 10*3/uL Sodium 131 L (137-145) mmol/L Chloride 92 L (98-107) mmol/L Carbon Dioxide 33 H (22-30) mmol/L BUN 56 H (9-20) mg/dL Creatinine 1.37 H (0.66-1.25) mg/dL Glucose 118 H (74-99) mg/dL Troponin I 5.040 H* (0.000-0.034) ng/mL
[2024-07-31 07:23] LABS: Basophils # (A) 0.06 10*3/uL (0.00-0.10); Basophils % (A) 0.5 %; Eosinophils # (A) 0.08 10*3/uL (0.04-0.35); Eosinophils % (A) 0.6 %; HCT 37.8 % (39.6-50.0); HGB 13.1 g/dL (13.0-17.0); Lymphocytes # (A) 1.28 10*3/uL (0.90-5.00); Lymphocytes % (A) 10.1 %; MCHC 34.7 g/dL (32.0-37.0); MCV 89.4 fL (80.0-97.0); Mean Platelet Volume 9.6 fL (9.5-12.2); Monocytes # (A) 1.36 10*3/uL (0.20-1.00); Monocytes % (A) 10.7 %; Neutrophils # (A) 9.79 10*3/uL (1.80-7.70); Neutrophils % (A) 77.2 %; Platelet Count 392 10*3/uL (140-440); RBC 4.23 10*6/uL (4.40-5.60); RDW 13.2 % (11.5-14.5); WBC 12.69 10*3/uL (4.50-10.00)
[2024-07-31 07:24] LABS: ALT 26 U/L (4-49); AST 29 U/L (17-59); African American GFR (CKD) 42 (>60 ml/min/1.73 sqM); Albumin 3.7 g/dL (3.5-5.0); Alkaline Phosphatase 58 U/L (38-126); Anion Gap 13 mmol/L; Blood Urea Nitrogen 75 mg/dL (9-20); Calcium 9.9 mg/dL (8.4-10.2); Carbon Dioxide 30 mmol/L (22-30); Chloride 90 mmol/L (98-107); Glucose 143 mg/dL (74-99); Magnesium 2.4 mg/dL (1.6-2.3); Non-African American GFR(CKD) 36 (>60 ml/min/1.73 sqM); Potassium 4.2 mmol/L (3.5-5.1); Sodium 133 mmol/L (137-145); Total Bilirubin 1.1 mg/dL (0.2-1.3); Total Protein 6.7 g/dL (6.3-8.2)
--- NOTE | 2024-07-31 10:13 | P.PN ---
Subjective Patient is seen in follow-up for hyponatremia. Sodium level 133 today. Oral intake fair. On amiodarone orally now. Denies chest pain or shortness of breath. Renal function worsening with creatinine 1.7 today. Vital signs are stable. General: No acute distress. HEENT: Head exam is unremarkable. On room air. LUNGS: No audible rhonchi or wheezes. HEART: Rate and Rhythm are regular. ABDOMEN: Nontender. EXTREMITITES: No edema. Objective - Vital Signs Vital signs: Vital Signs Temp 97.5 F L 07/31/24 08:00 Pulse 88 07/31/24 08:00 Resp 18 07/31/24 08:00 BP 117/70 07/31/24 08:00 Pulse Ox 98 07/31/24 08:00 FiO2 4 07/24/24 01:00 Intake & Output 07/30/24 07/31/24 07/31/24 18:59 06:59 18:59 Intake Total 240 50 240 Output Total 1102 500 Balance -862 -450 240 Weight 62.6 kg Intake: IV 50 Invasive Line 3 20 Invasive Line 4 10 Invasive Line 5 20 Oral 240 240 Output: Urine 1100 500 Stool 2 Other: Voiding Method Toilet External Catheter External Catheter # Voids 300 1 # Bowel Movements 1 - Labs CBC & Chem 7: 07/31/24 06:50 07/31/24 06:50 Labs: Abnormal Lab Results - Last 24 Hours (Table) 07/31/24 07/31/24 Range/Units 06:50 06:50 WBC 12.69 H (4.50-10.00) 10*3/uL RBC 4.23 L (4.40-5.60) 10*6/uL Hct 37.8 L (39.6-50.0) % Immature Gran # 0.12 H (0.00-0.04) 10*3/uL Neutrophils # 9.79 H (1.80-7.70) 10*3/uL Monocytes # 1.36 H (0.20-1.00) 10*3/uL Sodium 133 L (137-145) mmol/L Chloride 90 L (98-107) mmol/L BUN 75 H (9-20) mg/dL Creatinine 1.71 H (0.66-1.25) mg/dL Glucose 143 H (74-99) mg/dL Magnesium 2.4 H (1.6-2.3) mg/dL Assessment and Plan Plan: Assessment: 1. Hyponatremia, slightly hypervolemic. Sodium level 133 today. Urine osmolality 183. TSH normal. 2. V. tach status post amiodarone drip. Now on oral meds. 3. Acute ST elevated myocardial infarction status post cardiac catheterization July 24, 2024 with 2 stents placed. 4. Cardiomyopathy ejection fraction of 25 to 30% with moderate pulmonary hypertension. 5. Acute kidney injury secondary to hemodynamic ATN and cardiorenal syndrome. Creatinine 1.71 today. Baseline creatinine near 1. UA benign. 6. Volume overload. Plan: Decrease Lasix to 20 mg once daily. Add SGLT2 inhibitor. Discontinue urea. Maintain fluid restriction. Encouraged oral intake. Status post Samsca given July 29, 2024. Repeat labs in the morning.
[2024-07-31] MEDS: CLOPIDOGREL 75 MG TAB PO STA (12:46)
--- NOTE | 2024-07-31 14:24 | P.PN ---
Subjective Progress Note Date: 07/31/24 History of Present Illness: The patient is an 84-year-old male with a history of hypertension who presented with sudden onset chest discomfort radiating to the shoulder, not associated with any symptoms. In the emergency room he was found to have evidence of acute inferior wall myocardial infarction. Patient denies any prior history of CAD. He denies any exertional dyspnea or chest discomfort at baseline. He has no history of PND, orthopnea or peripheral edema. He has sinus bradycardia on presentation. He is a non-smoker and has no other cardiac past history. Medications: Blood pressure medication, he cannot recall 07/24 Patient seen and examined. Patient denies any chest pain or pressure. No significant shortness of breath. He underwent left heart catheterization which showed 100% stenosis of the distal RCA and mild to moderate disease of the left. Echocardiogram showed EF 25 to 30% with mild mitral regurgitation and RVSP 47. 07/25 Patient seen and examined. Patient had 1 episode of tachycardia with heart rate 115 which appears to be regular most consistent with SVT versus underlying slow atrial tachycardia/atrial flutter. He denies any chest pain or pressure. Denies any significant shortness of breath. Blood pressures been stable. Currently in sinus rhythm. Still at times somewhat confused and has a one-to-one sitter. 07/26 Patient seen and examined. Patient feeling better and mentally more back to his normal self. One-to-one sitter has been discontinued. Blood pressures relatively stable. Still has had intermittent episodes of SVT which she states he is asymptomatic from. He had episode with heart rates in the 120s and 130s however no significant shortness of breath or lightheadedness. 07/27 Patient initially was cleared for discharge with outpatient monitor however went into A-fib/SVT with heart rates in the 160s and 170s. He was fairly asymptomati c however was persistent and therefore started on amiodarone drip. Patient had intermittent episodes however last 8 hours since this morning has been in normal rhythm. Denies any chest pain or pressure. No significant shortness of breath. 07/28 Patient seen and examined. Patient denies any chest pain or pressure. No significant shortness of breath. Overall feeling much better. Went for a walk today. Concern of continued hyponatremia. Heart rates in the 90s 07/29 Patient resting in bed, no new complaints. Denies any chest pain or pressure. No shortness of breath or dizziness. Patient did have a fall overnight, found on the ground, appears to have had VT on monitor. Head CT was negative for any acute findings. Heart rates remain 80s/90s. Labs reviewed: WBC 12.2, hemoglobin 12.2, sodium 127, potassium 3.6, creatinine 0.96. 07/30 He is still having some confusion and drowsy. Creat 1.37, Na 131. Noted echo shows EF 25-30% 07/31 Patient seen and examined. Patient is still confused but improved from yesterday according to his . He denies chest pain or chest pressure. He has been found to have an EF of 25 to 30%. Heart rate has been controlled in the 70s and 80s and he remains in atrial fibrillation. Blood pressure 92/51, pulse ox 95% on room air. Repeat blood work reveals WBC 12.6, hemoglobin 13.1, BUN 75 creatinine 1.71. Due to worsening renal function, nephrology has decreased Lasix to 20 mg daily, added SGLT2 inhibitor. Physical Examination: 84-year-old male, alert oriented, having discomfort in the chest, hard of hearing. Head: Normocephalic. Eyes: Sclerae nonicteric. Neck: Good carotid upstroke, no bruit, no jugular venous distention. Lungs: Clear to auscultation. Heart: Regular rate and rhythm, S1-S2, no S3, no rub. Systolic ejection murmur. Abdomen: Soft nontender, positive bowel sounds Extremities: No edema, intact distal pulses. Impression: 1. Acute inferolateral myocardial infarction s/p PCI RCA 2. Persistent Afib 3. History of hypertension 4. Ischemic cardiomyopathy with EF 25-30% with component of tachycardia induced cardiomyopathy 5. Chronic systolic heart failure 6. SVT 7. Syncope, fall 8. Episode of nonsustained ventricular tachycardia on 07/28 9. Acute kidney injury 10. Metabolic encephalopathy, improving Plan: Patient's and son are at the bedside. Dr. Garcia discussed with them the need for LifeVest and medication changes that we will make regarding Plavix verses Brilinta. Discussed EP evaluation for possible AICD, however, will hold off as patient appears to be a poor candidate currently. LifeVest will be ordered and to be obtained prior to discharge Discontinue Brilinta and start patient on Plavix 300 mg loading dose followed by 75 mg daily Continue other cardiac medications: Amiodarone 400 mg twice daily, Eliquis 2.5 mg twice daily, aspirin 81 mg daily, atorvastatin 80 mg at bedtime, metoprolol tartrate 50 mg twice daily, Aldactone 75 mg daily Nephrology has started the patient on Farxiga 5 mg daily and reduced frequency of Lasix 20 mg daily In 2 weeks, plan to discontinue aspirin and patient would then be continued on Eliquis and Plavix Further recommendations as patient progresses Nurse practitioner note has been reviewed, I agree with documented findings and plan of care. Patient was seen and examined. Objective - Vital Signs Vital signs: Vital Signs Temp 97.5 F L 07/31/24 08:00 Pulse 88 07/31/24 08:00 Resp 18 07/31/24 08:00 BP 117/70 07/31/24 08:00 Pulse Ox 98 07/31/24 08:00 FiO2 4 07/24/24 01:00 Intake & Output 07/30/24 07/31/24 07/31/24 18:59 06:59 18:59 Intake Total 240 50 240 Output Total 1102 500 Balance -862 -450 240 Weight 62.6 kg Intake: IV 50 Invasive Line 3 20 Invasive Line 4 10 Invasive Line 5 20 Oral 240 240 Output: Urine 1100 500 Stool 2 Other: Voiding Method Toilet External Catheter External Catheter # Voids 300 1 # Bowel Movements 1 - Labs CBC & Chem 7: 07/31/24 06:50 07/31/24 06:50 Labs: Abnormal Lab Results - Last 24 Hours (Table) 07/31/24 07/31/24 Range/Units 06:50 06:50 WBC 12.69 H (4.50-10.00) 10*3/uL RBC 4.23 L (4.40-5.60) 10*6/uL Hct 37.8 L (39.6-50.0) % Immature Gran # 0.12 H (0.00-0.04) 10*3/uL Neutrophils # 9.79 H (1.80-7.70) 10*3/uL Monocytes # 1.36 H (0.20-1.00) 10*3/uL Sodium 133 L (137-145) mmol/L Chloride 90 L (98-107) mmol/L BUN 75 H (9-20) mg/dL Creatinine 1.71 H (0.66-1.25) mg/dL Glucose 143 H (74-99) mg/dL Magnesium 2.4 H (1.6-2.3) mg/dL
[2024-07-31 18:02] LABS: Appearance,Urine Clear (Clear); Bilirubin,Urine Negative (Negative); Blood,Urine Negative (Negative); Color,Urine Light Yellow; Glucose,Urine (UA) Negative (Negative); Ketones,Urine Negative (Negative); Leukocyte Esterase,Urine Negative (Negative); Nitrite,Urine Negative (Negative); Protein,Urine Negative (Negative); Specific Gravity,Urine 1.015 (1.001-1.035); Urobilinogen,Urine <2.0 mg/dL (<2.0)
--- NOTE | 2024-07-31 20:01 | P.PN ---
Subjective Progress Note Date: 07/31/24 Patient 84-year-old male came with complaints of typical chest pain radiating to the shoulder found to be in ST elevation IA in anteroinferiorly patient underwent cardiac authorization and stenting to RCA patient received 2 stents. Patient denied fever chills nausea vomiting abdominal pain dysuria at this time. Patient is otherwise clinically doing well patient denied any chest pain at this time patient has elevated troponin of 77. He had sinus bradycardia on presentation. 07/24/2024 Patient is bit confused secondary to ICU delirium. Patient is in atrial fibrillation with a rapid unclear rate patient was started on amiodarone patient is on beta-trang as well. Patient has mild pulmonary edema is on 2 L of oxygen patient is on 20 p.o. twice daily of Lasix was given a dose of Lasix by cardiology yesterday. Patient denied any chest pain at this time. Echocardiogram is still pending. REVIEW OF SYSTEMS: 07/25/2024 Patient is evaluated in the intensive care unit. at the bedside. Patient has no acute complaints at this time. He is status post stenting to the RCA. He has scattered wheezing noted on examination today. Ejection fraction comes back revealing an EF of 25 to 30%. He remains on oral Lasix 20 mg twice daily. Patient has not been up out of bed much. 07/26/2024 Patient is evaluated today in follow up in the ICU with family at the bedside. He has no acute complaints. He is status post stenting to the RCA. Remains on brilinta, aspirin, and eliquis with plans to continue on brilinta and eliquis on discharge. He worked with PT today with recommendations for return home on discharge. Heart rate did go up to 170 atrial fibrillation with ambulation and he has been started on oral amiodarone. Blood pressure 127/70. Sodium level today 127, potassium 3.2. 07/27/2024 Patient is evaluated today in follow up in the intensive care unit. He has been cleared by cardiology. Weaned off the cardizem gtt and heart rate is now controlled. Sodium level is 126, and 127. 07/28/2024 Patient is evaluated today in follow up. Sitting up in bed family at the bedside. He remains in normal sinus rhythm. Patient is anticoagulated with eliquis. Sodium level 127. Nephrology has started urea sodium. Event monitor was placed today as cardiology has recommending 1 week event monitor on discharge. 07/29. Patient seen and examined. Blood work done showed WBC 12.23, hemoglobin 12.2, sodium 127, potassium 3.2, BUN 44, creatinine 0.96. Patient had episode of V. tach overnight, patient was started on amiodarone this morning. sodium level this morning is 127, [facility] Patient seen examined. Labs reviewed showed WBC 12.99, hemoglobin 12.7, sodium 131, potassium 4.1, BUN 56, creatinine 1.37. States he feels better. Family states patient is more alert, more responsive 07/31/2024 Patient evaluated today resting in bed. Patient with no further reports of vtach. Repeat echocardiogram reveals an EF 25-30% with inferior hypokinesis. White blood cell count 12.69, hgb 13.1, sodium 133, BUN 75, creatinine 1.71. Urinalysis negative. Review of Systems Constitutional: Denied any fatigue denied any fever. Cardio vascular: denied any chest pain, palpitations Gastrointestinal: denied any nausea, vomiting, diarrhea Pulmonary: Denied any shortness of breath cough Neurologic denied any new focal deficits All inpatient medications were reviewed and appropriate changes in these medications as dictated in the interval history and assessment and plan. PHYSICAL EXAMINATION: GENERAL: The patient is alert and oriented x3, not in any acute distress. Well developed, well nourished. HEENT: Pupils are round and equally reacting to light. EOMI. No scleral icterus. No conjunctival pallor. Normocephalic, atraumatic. No pharyngeal erythema. No thyromegaly. CARDIOVASCULAR: S1 and S2 present. No murmurs, rubs, or gallops. PULMONARY: Scattered wheezing throughout ABDOMEN: Soft, nontender, nondistended, normoactive bowel sounds. No palpable organomegaly. MUSCULOSKELETAL: No joint swelling or deformity. EXTREMITIES: No cyanosis, clubbing, or pedal edema. NEUROLOGICAL: Gross neurological examination did not reveal any focal deficits. SKIN: No rashes. Assessment and plan -Acute non-ST elevation IA: s/p stenting of the RCA -Atrial fibrillation with rapid ventricular rate: Patient is on oral metoprolol and oral eliquis. Rate controlled; he did go up to 170 with ambulation and has been started on IV amiodarone and since transitioned oral amiodarone. He is now in normal sinus rhythm Continue to monitor on cardiac telemetry -Episode of vtach s/p amiodarone IV. -Acute kidney injury from ATN and cardiorenal syndrome. -Ischemic cardiomyopathy EF 25-30% -Hyponatremia hypervolemic. improved. on Lasix 20 mg dialy. -Leukocytosis probably secondary to IA patient white count improved although there is no clear evidence of infection at this time we will continue to monitor without any antibiotics at this time. WBC better. - Acute hypoxic respiratory failure secondary to pulmonary edema congestive heart failure; resolved and currently on room air. - Acute pulmonary edema secondary to acute myocardial infarction with acute exacerbation -Hyperlipidemia -hypertension - Benign prostatic hypertrophy DVT prophylaxis : Eliquis No Code Patient has been transitioned to oral amiodarone. Lasix decreased to 20 mg oral daily. Remains on cardiac telemetry. Heart rate now controlled. Nephrology following. UA negative. No urinary retention Repeat labs in the AM. The impression and plan of care has been dictated by Katarina Rodriguez, Nurse Practitioner as directed. Dr. Mukesh MD I have performed a history and physical examination and medical decision making of this patient, discussed the same with the dictator, and agree with the dictators assessment and plan as written, documented as a scribe. Based on total visit time, I have performed more than 50% of this visit. Objective - Vital Signs Vital signs: Vital Signs Temp 97.5 F L 07/31/24 08:00 Pulse 88 07/31/24 08:00 Resp 18 07/31/24 08:00 BP 117/70 07/31/24 08:00 Pulse Ox 98 07/31/24 08:00 FiO2 4 07/24/24 01:00 Intake & Output 07/30/24 07/31/24 07/31/24 18:59 06:59 18:59 Intake Total 240 50 240 Output Total 1102 500 Balance -862 -450 240 Weight 62.6 kg Intake: IV 50 Invasive Line 3 20 Invasive Line 4 10 Invasive Line 5 20 Oral 240 240 Output: Urine 1100 500 Stool 2 Other: Voiding Method Toilet External Catheter External Catheter # Voids 300 1 # Bowel Movements 1 - Labs CBC & Chem 7: 07/31/24 06:50 07/31/24 06:50 Labs: Abnormal Lab Results - Last 24 Hours (Table) 04/21/25 04/21/25 Range/Units 06:50 06:50 WBC 12.69 H (4.50-10.00) 10*3/uL RBC 4.23 L (4.40-5.60) 10*6/uL Hct 37.8 L (39.6-50.0) % Immature Gran # 0.12 H (0.00-0.04) 10*3/uL Neutrophils # 9.79 H (1.80-7.70) 10*3/uL Monocytes # 1.36 H (0.20-1.00) 10*3/uL Sodium 133 L (137-145) mmol/L Chloride 90 L (98-107) mmol/L BUN 75 H (9-20) mg/dL Creatinine 1.71 H (0.66-1.25) mg/dL Glucose 143 H (74-99) mg/dL Magnesium 2.4 H (1.6-2.3) mg/dL Assessment and Plan Time with Patient: Less than 30
[2024-08-01] MEDS: FUROSEMIDE 20 MG TAB PO SCH (07:43)
[2024-08-01] MEDS: DAPAGLIFLOZIN PROPANEDIOL 5 MG TABLET PO SCH (07:43)
[2024-08-01 07:44] LABS: Basophils # (A) 0.04 10*3/uL (0.00-0.10); Basophils % (A) 0.3 %; Eosinophils # (A) 0.08 10*3/uL (0.04-0.35); Eosinophils % (A) 0.5 %; HCT 36.2 % (39.6-50.0); HGB 12.3 g/dL (13.0-17.0); Lymphocytes # (A) 2.12 10*3/uL (0.90-5.00); Lymphocytes % (A) 13.3 %; MCH 30.1 pg (27.0-32.0); MCV 88.7 fL (80.0-97.0); Mean Platelet Volume 9.3 fL (9.5-12.2); Monocytes # (A) 1.62 10*3/uL (0.20-1.00); Monocytes % (A) 10.1 %; Neutrophils # (A) 12.02 10*3/uL (1.80-7.70); Neutrophils % (A) 75.1 %; Platelet Count 373 10*3/uL (140-440); RBC 4.08 10*6/uL (4.40-5.60); RDW 13.2 % (11.5-14.5); WBC 15.99 10*3/uL (4.50-10.00)
[2024-08-01 08:07] LABS: African American GFR (CKD) 38 (>60 ml/min/1.73 sqM); Anion Gap 13 mmol/L; Blood Urea Nitrogen 84 mg/dL (9-20); Calcium 9.4 mg/dL (8.4-10.2); Carbon Dioxide 28 mmol/L (22-30); Chloride 92 mmol/L (98-107); Glucose 127 mg/dL (74-99); Magnesium 2.5 mg/dL (1.6-2.3); Non-African American GFR(CKD) 33 (>60 ml/min/1.73 sqM); Potassium 4.2 mmol/L (3.5-5.1); Sodium 133 mmol/L (137-145)
--- NOTE | 2024-08-01 10:46 | P.PN ---
Subjective Patient is seen in follow-up for hyponatremia. Sodium level stable at 133 today. Oral intake fair. On amiodarone orally now. Denies chest pain or shortness of breath. Renal function slightly worse with creatinine 1.85 today. Vital signs are stable. General: No acute distress. HEENT: Head exam is unremarkable. On room air. LUNGS: No audible rhonchi or wheezes. HEART: Rate and Rhythm are regular. ABDOMEN: Nontender. EXTREMITITES: No edema. Objective - Vital Signs Vital signs: Vital Signs Temp 98.1 F 08/01/24 07:46 Pulse 91 08/01/24 07:46 Resp 20 08/01/24 07:46 BP 116/76 08/01/24 07:46 Pulse Ox 97 08/01/24 07:46 FiO2 4 07/24/24 01:00 Intake & Output 07/31/24 08/01/24 08/01/24 18:59 06:59 18:59 Intake Total 780 120 Output Total 300 300 Balance 480 -300 120 Weight 60.4 kg Intake: Oral 780 120 Output: Urine 300 300 Other: Voiding Method External Catheter External Catheter External Catheter # Voids 1 # Bowel Movements 1 - Labs CBC & Chem 7: 08/01/24 07:23 08/01/24 07:23 Labs: Abnormal Lab Results - Last 24 Hours (Table) 08/01/24 08/01/24 Range/Units 07:23 07:23 WBC 15.99 H (4.50-10.00) 10*3/uL RBC 4.08 L (4.40-5.60) 10*6/uL Hgb 12.3 L (13.0-17.0) g/dL Hct 36.2 L (39.6-50.0) % MPV 9.3 L (9.5-12.2) fL Immature Gran # 0.11 H (0.00-0.04) 10*3/uL Neutrophils # 12.02 H (1.80-7.70) 10*3/uL Monocytes # 1.62 H (0.20-1.00) 10*3/uL Sodium 133 L (137-145) mmol/L Chloride 92 L (98-107) mmol/L BUN 84 H (9-20) mg/dL Creatinine 1.85 H (0.66-1.25) mg/dL Glucose 127 H (74-99) mg/dL Magnesium 2.5 H (1.6-2.3) mg/dL Assessment and Plan Plan: Assessment: 1. Hyponatremia, slightly hypervolemic. Sodium level 133 today. Urine osmolality 183. TSH normal. 2. V. tach status post amiodarone drip. Now on oral meds. 3. Acute ST elevated myocardial infarction status post cardiac catheterization July 24, 2024 with 2 stents placed. 4. Cardiomyopathy ejection fraction of 25 to 30% with moderate pulmonary hypertension. 5. Acute kidney injury secondary to hemodynamic ATN and cardiorenal syndrome. Creatinine 1.85 today. Baseline creatinine near 1. UA benign. 6. Volume overload. Better with diuresis. Plan: Maintain Lasix 20 mg once daily. Maintain SGLT2 inhibitor. Urea discontinued. Maintain fluid restriction. Encouraged oral intake. Status post Samsca given July 29, 2024. Repeat labs in the morning.
[2024-08-01] MEDS: CLOPIDOGREL 75 MG TAB PO SCH (10:55)
--- NOTE | 2024-08-01 12:04 | P.PN ---
Subjective Progress Note Date: 08/01/24 Patient 84-year-old male came with complaints of typical chest pain radiating to the shoulder found to be in ST elevation NH in anteroinferiorly patient underwent cardiac authorization and stenting to RCA patient received 2 stents. Patient denied fever chills nausea vomiting abdominal pain dysuria at this time. Patient is otherwise clinically doing well patient denied any chest pain at this time patient has elevated troponin of 77. He had sinus bradycardia on presentation. 07/24/2024 Patient is bit confused secondary to ICU delirium. Patient is in atrial fibrillation with a rapid unclear rate patient was started on amiodarone patient is on beta-trang as well. Patient has mild pulmonary edema is on 2 L of oxygen patient is on 20 p.o. twice daily of Lasix was given a dose of Lasix by cardiology yesterday. Patient denied any chest pain at this time. Echocardiogram is still pending. REVIEW OF SYSTEMS: 07/25/2024 Patient is evaluated in the intensive care unit. at the bedside. Patient has no acute complaints at this time. He is status post stenting to the RCA. He has scattered wheezing noted on examination today. Ejection fraction comes back revealing an EF of 25 to 30%. He remains on oral Lasix 20 mg twice daily. Patient has not been up out of bed much. 07/26/2024 Patient is evaluated today in follow up in the ICU with family at the bedside. He has no acute complaints. He is status post stenting to the RCA. Remains on brilinta, aspirin, and eliquis with plans to continue on brilinta and eliquis on discharge. He worked with PT today with recommendations for return home on discharge. Heart rate did go up to 170 atrial fibrillation with ambulation and he has been started on oral amiodarone. Blood pressure 127/70. Sodium level today 127, potassium 3.2. 07/27/2024 Patient is evaluated today in follow up in the intensive care unit. He has been cleared by cardiology. Weaned off the cardizem gtt and heart rate is now controlled. Sodium level is 126, and 127. 07/28/2024 Patient is evaluated today in follow up. Sitting up in bed family at the bedside. He remains in normal sinus rhythm. Patient is anticoagulated with eliquis. Sodium level 127. Nephrology has started urea sodium. Event monitor was placed today as cardiology has recommending 1 week event monitor on discharge. 07/29. Patient seen and examined. Blood work done showed WBC 12.23, hemoglobin 12.2, sodium 127, potassium 3.2, BUN 44, creatinine 0.96. Patient had episode of V. tach overnight, patient was started on amiodarone this morning. sodium level this morning is 127, nephrology ordered Samsca 07/30. Patient seen examined. Labs reviewed showed WBC 12.99, hemoglobin 12.7, sodium 131, potassium 4.1, BUN 56, creatinine 1.37. States he feels better. Family states patient is more alert, more responsive 07/31/2024 Patient evaluated today resting in bed. Patient with no further reports of vtach. Repeat echocardiogram reveals an EF 25-30% with inferior hypokinesis. White blood cell count 12.69, hgb 13.1, sodium 133, BUN 75, creatinine 1.71. Urinalysis negative. 08/01/2024 Patient seen and examined at bedside. He has continued confusion and is awaiting PT OT evaluation for potential rehab on discharge. He is being seen by nephrology discontinued lisinopril and added Farxiga. Continue Lasix 20 mg daily. WBC 15.9, hemoglobin 12.3, sodium 133, chloride 92, BUN 94, creatinine 1.85, glucose 127. No new imaging. Review of Systems Constitutional: Denied any fatigue denied any fever. Cardio vascular: denied any chest pain, palpitations Gastrointestinal: denied any nausea, vomiting, diarrhea Pulmonary: Denied any shortness of breath cough Neurologic denied any new focal deficits All inpatient medications were reviewed and appropriate changes in these medications as dictated in the interval history and assessment and plan. PHYSICAL EXAMINATION: GENERAL: The patient is alert and oriented x3, not in any acute distress. Well developed, well nourished. HEENT: Pupils are round and equally reacting to light. EOMI. No scleral icterus. No conjunctival pallor. Normocephalic, atraumatic. No pharyngeal erythema. No thyromegaly. CARDIOVASCULAR: S1 and S2 present. No murmurs, rubs, or gallops. PULMONARY: Scattered wheezing throughout ABDOMEN: Soft, nontender, nondistended, normoactive bowel sounds. No palpable organomegaly. MUSCULOSKELETAL: No joint swelling or deformity. EXTREMITIES: No cyanosis, clubbing, or pedal edema. NEUROLOGICAL: Gross neurological examination did not reveal any focal deficits. SKIN: No rashes. Assessment and plan -Acute non-ST elevation NH: s/p stenting of the RCA -Atrial fibrillation with rapid ventricular rate: Patient is on oral metoprolol and oral eliquis. Rate controlled; he did go up to 170 with ambulation and has been started on IV amiodarone and since transitioned oral amiodarone. He is now in normal sinus rhythm Continue to monitor on cardiac telemetry -Episode of vtach s/p amiodarone IV. -Acute kidney injury from ATN and cardiorenal syndrome. Lisinopril held, Farxiga added -Ischemic cardiomyopathy EF 25-30% -Hyponatremia hypervolemic. improved. on Lasix 20 mg p.o. daily. -Leukocytosis, chest x-ray, respiratory viral panel ordered - Acute hypoxic respiratory failure secondary to pulmonary edema congestive h eart failure; resolved and currently on room air. - Acute pulmonary edema secondary to acute myocardial infarction with acute exacerbation -Hyperlipidemia -hypertension - Benign prostatic hypertrophy DVT prophylaxis : Eliquis No Code Patient has been transitioned to oral amiodarone. Lasix decreased to 20 mg oral daily. Remains on cardiac telemetry. Heart rate now controlled. Nephrology following. UA negative. No urinary retention Repeat labs in the AM. Dr. Mayorga seen patient with resident, present during exam, and agreed with findings. Objective - Vital Signs Vital signs: Vital Signs Temp 98.1 F 08/01/24 07:46 Pulse 91 08/01/24 07:46 Resp 20 08/01/24 07:46 BP 116/76 08/01/24 07:46 Pulse Ox 97 08/01/24 07:46 FiO2 4 07/24/24 01:00 Intake & Output 07/31/24 08/01/24 08/01/24 18:59 06:59 18:59 Intake Total 780 Output Total 300 300 Balance 480 -300 Weight 60.4 kg Intake: Oral 780 Output: Urine 300 300 Other: Voiding Method External Catheter External Catheter # Voids 1 # Bowel Movements 1 - Labs CBC & Chem 7: 08/01/24 07:23 08/01/24 07:23 Labs: Abnormal Lab Results - Last 24 Hours (Table) 08/01/24 08/01/24 Range/Units 07:23 07:23 WBC 15.99 H (4.50-10.00) 10*3/uL RBC 4.08 L (4.40-5.60) 10*6/uL Hgb 12.3 L (13.0-17.0) g/dL Hct 36.2 L (39.6-50.0) % MPV 9.3 L (9.5-12.2) fL Immature Gran # 0.11 H (0.00-0.04) 10*3/uL Neutrophils # 12.02 H (1.80-7.70) 10*3/uL Monocytes # 1.62 H (0.20-1.00) 10*3/uL Sodium 133 L (137-145) mmol/L Chloride 92 L (98-107) mmol/L BUN 84 H (9-20) mg/dL Creatinine 1.85 H (0.66-1.25) mg/dL Glucose 127 H (74-99) mg/dL Magnesium 2.5 H (1.6-2.3) mg/dL
[2024-08-01 12:59] LABS: Influenza A Not Detected (Not Detectd); Influenza B Not Detected (Not Detectd); RSV Not Detected (Not Detectd)
--- NOTE | 2024-08-01 13:35 | XR ---
EXAMINATION TYPE: XR chest 1V portable DATE OF EXAM: 08/01/2024 1:17 PM COMPARISON: Chest radiographs from 07/28/2024, 07/24/2024 TECHNIQUE: XR chest 1V portable Portable AP radiograph of the chest. CLINICAL INDICATION:Male, 84 years old with history of dyspnea; FINDINGS: Lungs/Pleura: No pleural effusion or pneumothorax. Subtle bibasilar patchy airspace opacities. Pulmonary vascularity: Unremarkable. Heart/mediastinum: Cardiomediastinal silhouette is enlarged and stable. Musculoskeletal: No acute osseous pathology. Other findings: Power pack device overlies the left upper lung. IMPRESSION: Subtle bibasilar patchy opacities concerning for atypical pneumonia. [facility], , 08/01/2024 1:33 PM
--- NOTE | 2024-08-01 14:35 | P.PN ---
Subjective Progress Note Date: 08/01/24 History of Present Illness: The patient is an 84-year-old male with a history of hypertension who presented with sudden onset chest discomfort radiating to the shoulder, not associated with any symptoms. In the emergency room he was found to have evidence of acute inferior wall myocardial infarction. Patient denies any prior history of CAD. He denies any exertional dyspnea or chest discomfort at baseline. He has no history of PND, orthopnea or peripheral edema. He has sinus bradycardia on presentation. He is a non-smoker and has no other cardiac past history. Medications: Blood pressure medication, he cannot recall 07/24 Patient seen and examined. Patient denies any chest pain or pressure. No significant shortness of breath. He underwent left heart catheterization which showed 100% stenosis of the distal RCA and mild to moderate disease of the left. Echocardiogram showed EF 25 to 30% with mild mitral regurgitation and RVSP 47. 07/25 Patient seen and examined. Patient had 1 episode of tachycardia with heart rate 115 which appears to be regular most consistent with SVT versus underlying slow atrial tachycardia/atrial flutter. He denies any chest pain or pressure. Denies any significant shortness of breath. Blood pressures been stable. Currently in sinus rhythm. Still at times somewhat confused and has a one-to-one sitter. 07/26 Patient seen and examined. Patient feeling better and mentally more back to his normal self. One-to-one sitter has been discontinued. Blood pressures relatively stable. Still has had intermittent episodes of SVT which she states he is asymptomatic from. He had episode with heart rates in the 120s and 130s however no significant shortness of breath or lightheadedness. 07/27 Patient initially was cleared for discharge with outpatient monitor however went into A-fib/SVT with heart rates in the 160s and 170s. He was fairly asymptomati c however was persistent and therefore started on amiodarone drip. Patient had intermittent episodes however last 8 hours since this morning has been in normal rhythm. Denies any chest pain or pressure. No significant shortness of breath. 07/28 Patient seen and examined. Patient denies any chest pain or pressure. No significant shortness of breath. Overall feeling much better. Went for a walk today. Concern of continued hyponatremia. Heart rates in the 90s 07/29 Patient resting in bed, no new complaints. Denies any chest pain or pressure. No shortness of breath or dizziness. Patient did have a fall overnight, found on the ground, appears to have had VT on monitor. Head CT was negative for any acute findings. Heart rates remain 80s/90s. Labs reviewed: WBC 12.2, hemoglobin 12.2, sodium 127, potassium 3.6, creatinine 0.96. 07/30 He is still having some confusion and drowsy. Creat 1.37, Na 131. Noted echo shows EF 25-30% 07/31 Patient seen and examined. Patient is still confused but improved from yesterday according to his . He denies chest pain or chest pressure. He has been found to have an EF of 25 to 30%. Heart rate has been controlled in the 70s and 80s and he remains in atrial fibrillation. Blood pressure 92/51, pulse ox 95% on room air. Repeat blood work reveals WBC 12.6, hemoglobin 13.1, BUN 75 creatinine 1.71. Due to worsening renal function, nephrology has decreased Lasix to 20 mg daily, added SGLT2 inhibitor. 08/01 Patient seen and examined. Yesterday, we attempted a LifeVest and when Fitter was here to apply, patient was to confused to comply. Will plan to cancel order for LifeVest. Patient has been maintained on amiodarone 400 mg twice daily which we we will address tapering. Heart rate 79, pulse ox 90% on room air, blood pressure 105/69. Repeat blood work reveals WBC 15.9, hemoglobin 12.3, BUN 84 and creatinine 1.85. Chest x-ray reveals subtle bibasilar patchy opacities concerning for atypical pneumonia. Physical Examination: 84-year-old male, alert oriented, having discomfort in the chest, hard of hearing. Head: Normocephalic. Eyes: Sclerae nonicteric. Neck: Good carotid upstroke, no bruit, no jugular venous distention. Lungs: Clear to auscultation. Heart: Regular rate and rhythm, S1-S2, no S3, no rub. Systolic ejection murmur. Abdomen: Soft nontender, positive bowel sounds Extremities: No edema, intact distal pulses. Impression: 1. Acute inferolateral myocardial infarction s/p PCI RCA 2. Persistent Afib 3. History of hypertension 4. Ischemic cardiomyopathy with EF 25-30% with component of tachycardia induced cardiomyopathy. Patient unable to comply with LifeVest. 5. Chronic systolic heart failure 6. SVT 7. Syncope, fall 8. Episode of nonsustained ventricular tachycardia on 07/28 9. Acute kidney injury 10. Metabolic encephalopathy Plan: Cancel LifeVest Discussed EP evaluation for possible AICD, however, will hold off as patient appears to be a poor candidate currently. Continue patient on Plavix 75 mg daily Continue other cardiac medications: Amiodarone 400 mg twice daily, Eliquis 2.5 mg twice daily, aspirin 81 mg daily, atorvastatin 80 mg at bedtime, metoprolol tartrate 50 mg twice daily, Aldactone 75 mg daily Nephrology has started the patient on Farxiga 5 mg daily and reduced frequency of Lasix 20 mg daily In 2 weeks, plan to discontinue aspirin and patient would then be continued on Eliquis and Plavix Regarding amiodarone, continue 400 mg twice daily to complete 7-day course then 200 mg twice daily. Further recommendations as patient progresses Nurse practitioner note has been reviewed, I agree with documented findings and plan of care. Patient was seen and examined. Objective - Vital Signs Vital signs: Vital Signs Temp 98.1 F 08/01/24 07:46 Pulse 91 08/01/24 07:46 Resp 20 08/01/24 07:46 BP 116/76 08/01/24 07:46 Pulse Ox 97 08/01/24 07:46 FiO2 4 07/24/24 01:00 Intake & Output 07/31/24 08/01/24 08/01/24 18:59 06:59 18:59 Intake Total 780 120 Output Total 300 300 Balance 480 -300 120 Weight 60.4 kg Intake: Oral 780 120 Output: Urine 300 300 Other: Voiding Method External Catheter External Catheter External Catheter # Voids 1 # Bowel Movements 1 - Labs CBC & Chem 7: 08/01/24 07:23 08/01/24 07:23 Labs: Abnormal Lab Results - Last 24 Hours (Table) 08/01/24 08/01/24 Range/Units 07:23 07:23 WBC 15.99 H (4.50-10.00) 10*3/uL RBC 4.08 L (4.40-5.60) 10*6/uL Hgb 12.3 L (13.0-17.0) g/dL Hct 36.2 L (39.6-50.0) % MPV 9.3 L (9.5-12.2) fL Immature Gran # 0.11 H (0.00-0.04) 10*3/uL Neutrophils # 12.02 H (1.80-7.70) 10*3/uL Monocytes # 1.62 H (0.20-1.00) 10*3/uL Sodium 133 L (137-145) mmol/L Chloride 92 L (98-107) mmol/L BUN 84 H (9-20) mg/dL Creatinine 1.85 H (0.66-1.25) mg/dL Glucose 127 H (74-99) mg/dL Magnesium 2.5 H (1.6-2.3) mg/dL
[2024-08-02 07:02] LABS: Basophils # (A) 0.08 10*3/uL (0.00-0.10); Basophils % (A) 0.7 %; Eosinophils # (A) 0.14 10*3/uL (0.04-0.35); Eosinophils % (A) 1.2 %; HCT 36.1 % (39.6-50.0); HGB 12.4 g/dL (13.0-17.0); Lymphocytes # (A) 2.14 10*3/uL (0.90-5.00); MCH 30.6 pg (27.0-32.0); MCHC 34.3 g/dL (32.0-37.0); MCV 89.1 fL (80.0-97.0); Mean Platelet Volume 9.3 fL (9.5-12.2); Monocytes # (A) 1.52 10*3/uL (0.20-1.00); Monocytes % (A) 12.8 %; Neutrophils # (A) 7.89 10*3/uL (1.80-7.70); Neutrophils % (A) 66.4 %; Platelet Count 380 10*3/uL (140-440); RBC 4.05 10*6/uL (4.40-5.60); RDW 13.1 % (11.5-14.5); WBC 11.88 10*3/uL (4.50-10.00)
[2024-08-02 07:29] LABS: African American GFR (CKD) 43 (>60 ml/min/1.73 sqM); Anion Gap 11 mmol/L; Blood Urea Nitrogen 60 mg/dL (9-20); Calcium 9.4 mg/dL (8.4-10.2); Carbon Dioxide 28 mmol/L (22-30); Chloride 93 mmol/L (98-107); Glucose 109 mg/dL (74-99); Magnesium 2.5 mg/dL (1.6-2.3); Non-African American GFR(CKD) 37 (>60 ml/min/1.73 sqM); Potassium 3.9 mmol/L (3.5-5.1); Sodium 132 mmol/L (137-145)
--- NOTE | 2024-08-02 10:00 | P.PN ---
Subjective Patient is seen in follow-up for hyponatremia. Sodium level stable at 132 today. Oral intake fair. On amiodarone orally now. Denies chest pain or shortness of breath. Renal function better. Vital signs are stable. General: No acute distress. HEENT: Head exam is unremarkable. On room air. LUNGS: No audible rhonchi or wheezes. HEART: Rate and Rhythm are regular. ABDOMEN: Nontender. EXTREMITITES: No edema. Objective - Vital Signs Vital signs: Vital Signs Temp 98.1 F 08/02/24 07:50 Pulse 83 08/02/24 07:50 Resp 18 08/02/24 07:50 BP 150/76 08/02/24 07:50 Pulse Ox 97 08/02/24 07:50 FiO2 4 07/24/24 01:00 Intake & Output 08/01/24 08/02/24 08/02/24 18:59 06:59 18:59 Intake Total 780 180 Output Total 550 500 Balance 230 -500 180 Weight 62.6 kg Intake: Oral 780 180 Output: Urine 550 500 Other: Voiding Method External Catheter External Catheter External Catheter # Voids 1 - Labs CBC & Chem 7: 08/02/24 06:37 08/02/24 06:37 Labs: Abnormal Lab Results - Last 24 Hours (Table) 08/02/24 08/02/24 Range/Units 06:37 06:37 WBC 11.88 H (4.50-10.00) 10*3/uL RBC 4.05 L (4.40-5.60) 10*6/uL Hgb 12.4 L (13.0-17.0) g/dL Hct 36.1 L (39.6-50.0) % MPV 9.3 L (9.5-12.2) fL Immature Gran # 0.11 H (0.00-0.04) 10*3/uL Neutrophils # 7.89 H (1.80-7.70) 10*3/uL Monocytes # 1.52 H (0.20-1.00) 10*3/uL Sodium 132 L (137-145) mmol/L Chloride 93 L (98-107) mmol/L BUN 60 H (9-20) mg/dL Creatinine 1.67 H (0.66-1.25) mg/dL Glucose 109 H (74-99) mg/dL Magnesium 2.5 H (1.6-2.3) mg/dL Assessment and Plan Plan: Assessment: 1. Hyponatremia, slightly hypervolemic. Sodium level 132 today. Urine osmola lity 183. TSH normal. 2. V. tach status post amiodarone drip. Now on oral meds. 3. Acute ST elevated myocardial infarction status post cardiac catheterization July 24, 2024 with 2 stents placed. 4. Cardiomyopathy ejection fraction of 25 to 30% with moderate pulmonary hypertension. 5. Acute kidney injury secondary to hemodynamic ATN and cardiorenal syndrome. Creatinine peaked at 1.85 and is 1.67 today. Baseline creatinine near 1. UA benign. 6. Volume overload. Better with diuresis. Plan: Maintain Lasix 20 mg once daily. Maintain SGLT2 inhibitor. Urea discontinued. Maintain fluid restriction. Encouraged oral intake. Status post Samsca given July 29, 2024. Repeat BMP and magnesium level 2 to 3 days postdischarge. Follow-up outpatient 1 week postdischarge.
[2024-08-02 11:10] VITALS: BP 130/70; PULSE 92; RESP 17; TEMP 98.6
--- NOTE | 2024-08-02 11:51 | P.DS ---
Providers Date of admission: 07/23/24 02:53 Expected date of discharge: 08/02/24 Attending physician: Xavier Lemus Consults: 07/23/24 02:53 Consult Physician Urgent Consulting Provider: Shahzad Martinez Consult Reason/Comments: stemi Do you want consulting provider notified?: Yes 07/23/24 05:09 Consult Physician Routine Consulting Provider: [facility] Consult Reason/Comments: Post Interventional Patient Do you want consulting provider notified?: Already Contacted 07/26/24 14:00 Consult Physician Routine Consulting Provider: [facility] Consult Reason/Comments: hyponatremia Do you want consulting provider notified?: Yes [facility] [place] [facility] Course: Discharge diagnoses; -Acute non-ST elevation AL: s/p stenting of the RCA -Atrial fibrillation with rapid ventricular rate -Episode of vtach -Acute kidney injury from ATN and cardiorenal syndrome -Ischemic cardiomyopathy EF 25-30% -Hyponatremia hypervolemic -Acute hypoxic respiratory failure secondary to pulmonary edema congestive heart failure -Acute pulmonary edema secondary to acute myocardial infarction with acute exacerbation -Hyperlipidemia -Hypertension -Benign prostatic hypertrophy Hospital course; Patient 84-year-old male came with complaints of typical chest pain radiating to the shoulder found to be in ST elevation AL in anteroinferiorly patient underwent cardiac authorization and stenting to RCA patient received 2 stents. Patient denied fever chills nausea vomiting abdominal pain dysuria at this time. Patient is otherwise clinically doing well patient denied any chest pain at this time patient has elevated troponin of 77. He had sinus bradycardia on presentation. During hospital stay patient was treated for acute inferolateral myocardial infarction s/p PCI RCA on July 23. Patient was seen by cardiology and nephrology and improved during stay. He did continue to have some ongoing confusion which is worse than his baseline. Patient discharged home with home health in stable condition. Continue patient on Plavix 75 mg daily. Continue other cardiac medications: Amiodarone 400 mg twice daily, Eliquis 2.5 mg twice daily, aspirin 81 mg daily, atorvastatin 80 mg at bedtime, metoprolol tartrate 50 mg twice daily, Aldactone 75 mg daily. Continue Farxiga 5 mg daily and reduced frequency of Lasix 20 mg daily. In 2 weeks, plan to discontinue aspirin and patient would then be continued on Eliquis and Plavix. Regarding amiodarone, continue 400 mg twice daily to complete 7-day course then 200 mg twice daily. Discontinue atenolol and lisinopril for the time being. Complete BMP and Mg lab in 3 days. Follow-up with cardiology, nephrology and PCP. PHYSICAL EXAMINATION: GENERAL: The patient is alert and oriented x3, not in any acute distress. Well developed, well nourished. CARDIOVASCULAR: S1 and S2 present. No murmurs, rubs, or gallops. PULMONARY: Scattered wheezing throughout ABDOMEN: Soft, nontender, nondistended, normoactive bowel sounds. No palpable organomegaly. EXTREMITIES: No cyanosis, clubbing, or pedal edema. NEUROLOGICAL: Gross neurological examination did not reveal any focal deficits. SKIN: No rashes. Dr. Mayorga seen patient with resident, present during exam, and agreed with findings. Dictation was produced using [employer] dictation software. please excuse any grammatical, word or spelling errors. Patient Condition at Discharge: Stable Plan - Discharge Summary Discharge Rx Participant: No New Discharge Prescriptions: New Spironolactone [Aldactone] 25 mg PO DAILY #30 tab Aspirin 81 mg PO DAILY #14 tab Apixaban [Eliquis] 2.5 mg PO BID #60 tab Dapagliflozin Propanediol [Farxiga] 5 mg PO DAILY #30 tab Furosemide [Lasix] 20 mg PO DAILY #30 tab Atorvastatin [Lipitor] 80 mg PO HS #90 tab Clopidogrel [Plavix] 75 mg PO DAILY #30 tab Amiodarone [Cordarone] 400 mg PO BID #60 tab Metoprolol Tartrate [Lopressor] 50 mg PO BID #60 tab Continue Tamsulosin [Flomax] 0.4 mg PO HS Ergocalciferol (Vitamin D2) [Drisdol (50,000 Iu)] 1,250 mcg PO Q14D lisinopriL [Zestril] 20 mg PO DAILY Vit C/E/Zn/Coppr/Lutein/Zeaxan [Preservision Areds 2 Softgel] 1 cap PO DAILY Simvastatin [Zocor] 20 mg PO HS NIFEdipine XL [Procardia XL] 30 mg PO DAILY Ubidecarenone [Q-Sorb Co Q-10] 200 mg PO DAILY Discontinued atenoloL 100 mg PO DAILY Discharge Medication List Ergocalciferol (Vitamin D2) [Drisdol (50,000 Iu)] 1,250 mcg PO Q14D 07/23/24 [History] NIFEdipine XL [Procardia XL] 30 mg PO DAILY 07/23/24 [History] Simvastatin [Zocor] 20 mg PO HS 07/23/24 [History] Tamsulosin [Flomax] 0.4 mg PO HS 07/23/24 [History] Ubidecarenone [Q-Sorb Co Q-10] 200 mg PO DAILY 07/23/24 [History] Vit C/E/Zn/Coppr/Lutein/Zeaxan [Preservision Areds 2 Softgel] 1 cap PO DAILY 07/23/24 [History] lisinopriL [Zestril] 20 mg PO DAILY 07/23/24 [History] Amiodarone [Cordarone] 400 mg PO BID #60 tab 08/02/24 [Rx] Apixaban [Eliquis] 2.5 mg PO BID #60 tab 08/02/24 [Rx] Aspirin 81 mg PO DAILY #14 tab 08/02/24 [Rx] Atorvastatin [Lipitor] 80 mg PO HS #90 tab 08/02/24 [Rx] Clopidogrel [Plavix] 75 mg PO DAILY #30 tab 08/02/24 [Rx] Dapagliflozin Propanediol [Farxiga] 5 mg PO DAILY #30 tab 08/02/24 [Rx] Furosemide [Lasix] 20 mg PO DAILY #30 tab 08/02/24 [Rx] Metoprolol Tartrate [Lopressor] 50 mg PO BID #60 tab 08/02/24 [Rx] Spironolactone [Aldactone] 25 mg PO DAILY #30 tab 08/02/24 [Rx] Follow up Appointment(s)/Referral(s): [facility], [NON-STAFF] - 1 Week Kalyani Garcia MD [STAFF PHYSICIAN] - 1 Week None,Stated [REFERRING] - 1-2 days Emory Cannon DO [STAFF PHYSICIAN] - 1 Week Ambulatory/Diagnostic Orders: Basic Metabolic Panel [LAB.AMB] Location: None Selected Magnesium [LAB.AMB] Location: None Selected Activity/Diet/Wound Care/Special Instructions: Continue patient on Plavix 75 mg daily Continue other cardiac medications: Amiodarone 400 mg twice daily, Eliquis 2.5 mg twice daily, aspirin 81 mg daily, atorvastatin 80 mg at bedtime, metoprolol tartrate 50 mg twice daily, Aldactone 75 mg daily Continue Farxiga 5 mg daily and reduced frequency of Lasix 20 mg daily In 2 weeks, plan to discontinue aspirin and patient would then be continued on Eliquis and Plavix Regarding amiodarone, continue 400 mg twice daily to complete 7-day course then 200 mg twice daily. Complete BMP and Mg lab in 3 days. Follow-up with cardiology, nephrology and PCP. Discharge/Stand Alone Forms: Who Do I Call?, Help In The Home Discharge Disposition: HOME WITH HOME HEALTH SERVICES
--- NOTE | 2024-08-02 12:12 | P.PN ---
Subjective Progress Note Date: 08/02/24 History of Present Illness: The patient is an 84-year-old male with a history of hypertension who presented with sudden onset chest discomfort radiating to the shoulder, not associated with any symptoms. In the emergency room he was found to have evidence of acute inferior wall myocardial infarction. Patient denies any prior history of CAD. He denies any exertional dyspnea or chest discomfort at baseline. He has no history of PND, orthopnea or peripheral edema. He has sinus bradycardia on presentation. He is a non-smoker and has no other cardiac past history. Medications: Blood pressure medication, he cannot recall 07/24 Patient seen and examined. Patient denies any chest pain or pressure. No significant shortness of breath. He underwent left heart catheterization which showed 100% stenosis of the distal RCA and mild to moderate disease of the left. Echocardiogram showed EF 25 to 30% with mild mitral regurgitation and RVSP 47. 07/25 Patient seen and examined. Patient had 1 episode of tachycardia with heart rate 115 which appears to be regular most consistent with SVT versus underlying slow atrial tachycardia/atrial flutter. He denies any chest pain or pressure. Denies any significant shortness of breath. Blood pressures been stable. Currently in sinus rhythm. Still at times somewhat confused and has a one-to-one sitter. 07/26 Patient seen and examined. Patient feeling better and mentally more back to his normal self. One-to-one sitter has been discontinued. Blood pressures relatively stable. Still has had intermittent episodes of SVT which she states he is asymptomatic from. He had episode with heart rates in the 120s and 130s however no significant shortness of breath or lightheadedness. 07/27 Patient initially was cleared for discharge with outpatient monitor however went into A-fib/SVT with heart rates in the 160s and 170s. He was fairly asymptomati c however was persistent and therefore started on amiodarone drip. Patient had intermittent episodes however last 8 hours since this morning has been in normal rhythm. Denies any chest pain or pressure. No significant shortness of breath. 07/28 Patient seen and examined. Patient denies any chest pain or pressure. No significant shortness of breath. Overall feeling much better. Went for a walk today. Concern of continued hyponatremia. Heart rates in the 90s 07/29 Patient resting in bed, no new complaints. Denies any chest pain or pressure. No shortness of breath or dizziness. Patient did have a fall overnight, found on the ground, appears to have had VT on monitor. Head CT was negative for any acute findings. Heart rates remain 80s/90s. Labs reviewed: WBC 12.2, hemoglobin 12.2, sodium 127, potassium 3.6, creatinine 0.96. 07/30 He is still having some confusion and drowsy. Creat 1.37, Na 131. Noted echo shows EF 25-30% 07/31 Patient seen and examined. Patient is still confused but improved from yesterday according to his . He denies chest pain or chest pressure. He has been found to have an EF of 25 to 30%. Heart rate has been controlled in the 70s and 80s and he remains in atrial fibrillation. Blood pressure 92/51, pulse ox 95% on room air. Repeat blood work reveals WBC 12.6, hemoglobin 13.1, BUN 75 creatinine 1.71. Due to worsening renal function, nephrology has decreased Lasix to 20 mg daily, added SGLT2 inhibitor. 08/01 Patient seen and examined. Yesterday, we attempted a LifeVest and when Fitter was here to apply, patient was to confused to comply. Will plan to cancel order for LifeVest. Patient has been maintained on amiodarone 400 mg twice daily which we we will address tapering. Heart rate 79, pulse ox 90% on room air, blood pressure 105/69. Repeat blood work reveals WBC 15.9, hemoglobin 12.3, BUN 84 and creatinine 1.85. Chest x-ray reveals subtle bibasilar patchy opacities concerning for atypical pneumonia. 08/02 Patient is scheduled for discharge home today. No plan for LifeVest. Patient continues to have some confusion. Blood pressure 130/70, heart rate 92, pulse ox 94% on room air. Physical Examination: 84-year-old male, alert oriented, having discomfort in the chest, hard of hearing. Head: Normocephalic. Eyes: Sclerae nonicteric. Neck: Good carotid upstroke, no bruit, no jugular venous distention. Lungs: Clear to auscultation. Heart: Regular rate and rhythm, S1-S2, no S3, no rub. Systolic ejection murmur. Abdomen: Soft nontender, positive bowel sounds Extremities: No edema, intact distal pulses. Impression: 1. Acute inferolateral myocardial infarction s/p PCI RCA 2. Persistent Afib 3. History of hypertension 4. Ischemic cardiomyopathy with EF 25-30% with component of tachycardia induced cardiomyopathy. Patient unable to comply with LifeVest. 5. Chronic systolic heart failure 6. SVT 7. Syncope, fall 8. Episode of nonsustained ventricular tachycardia on 07/28 9. Acute kidney injury 10. Metabolic encephalopathy Plan: Cancel LifeVest Discussed EP evaluation for possible AICD, however, will hold off as patient appears to be a poor candidate currently. Continue patient on Plavix 75 mg daily Continue other cardiac medications: Amiodarone 400 mg twice daily, Eliquis 2.5 mg twice daily, aspirin 81 mg daily, atorvastatin 80 mg at bedtime, metoprolol tartrate 50 mg twice daily, Aldactone 75 mg daily Nephrology has started the patient on Farxiga 5 mg daily and reduced frequency of Lasix 20 mg daily In 2 weeks, plan to discontinue aspirin and patient would then be continued on Eliquis and Plavix Regarding amiodarone, continue 400 mg twice daily to complete 7-day course then 200 mg twice daily. Patient is cleared for discharge from cardiology and will follow-up in the office with Dr. Martinez in 1 week Nurse practitioner note has been reviewed, I agree with documented findings and plan of care. Patient was seen and examined. Objective - Vital Signs Vital signs: Vital Signs Temp 98.6 F 08/02/24 11:10 Pulse 92 08/02/24 11:10 Resp 17 08/02/24 11:10 BP 130/70 08/02/24 11:10 Pulse Ox 94 L 08/02/24 11:10 FiO2 4 07/24/24 01:00 Intake & Output 08/01/24 08/02/24 08/02/24 18:59 06:59 18:59 Intake Total 780 180 Output Total 550 500 1 Balance 230 -500 179 Weight 62.6 kg Intake: Oral 780 180 Output: Urine 550 500 Stool 1 Other: Voiding Method External Catheter External Catheter External Catheter # Voids 1 - Labs CBC & Chem 7: 08/02/24 06:37 08/02/24 06:37 Labs: Abnormal Lab Results - Last 24 Hours (Table) 08/02/24 08/02/24 Range/Units 06:37 06:37 WBC 11.88 H (4.50-10.00) 10*3/uL RBC 4.05 L (4.40-5.60) 10*6/uL Hgb 12.4 L (13.0-17.0) g/dL Hct 36.1 L (39.6-50.0) % MPV 9.3 L (9.5-12.2) fL Immature Gran # 0.11 H (0.00-0.04) 10*3/uL Neutrophils # 7.89 H (1.80-7.70) 10*3/uL Monocytes # 1.52 H (0.20-1.00) 10*3/uL Sodium 132 L (137-145) mmol/L Chloride 93 L (98-107) mmol/L BUN 60 H (9-20) mg/dL Creatinine 1.67 H (0.66-1.25) mg/dL Glucose 109 H (74-99) mg/dL Magnesium 2.5 H (1.6-2.3) mg/dL
--- NOTE | 2024-08-04 13:34 | CDI ---
Documentation Clarification Form Date: 08/04/2024 12:32:21 PM From: Betzy Jasso RN, CCDS Phone: [phone] Admit Date: 07/23/2024 02:53:00 AM Patient Name: Epi Lloyd Visit Number: [id number] Discharge Date: 08/02/2024 02:28:00 PM ATTENTION: The Clinical Documentation Specialists (CDI) and [facility] Coding Staff appreciate your assistance in clarifying documentation. Please respond to the clarification below the line at the bottom and electronically sign. The CDI & [facility] Coding staff will review the response and follow-up if needed. Please note: Queries are made part of the Legal Health Record. If you have any questions, please contact the author of this message via ITS. Provider: Evette LAND Metabolic Encephalopathy is documented in the cardiology progress notes starting on 07/31/24 which may lack sufficient clinical evidence/support in the medical record. Additional clarification is requested. Patient history/risk factors: Hypertension, Atrial fibrillation, chronic systolic heart failure Clinical Indicators: 84-year-old male present to ED with evidence of acute inferior wall myocardial infarction. He has sinus bradycardia on presentation. 07/23 (02:55) VS: 122/52 48 18 97% RA 07/23 Labs: WBC 16.62 Na 133Trop 0.073, 55.700, 71.000 BNP 2920; UA: NEG 07/23 ED oriented coma scale 15 (0646) 07/23 (20:00 confused coma scale 14 07/14/12 ICU Confusion assessment (Evette-) indicated that she has noted confusion over the past 2 months, but nothing this degree. No change to medications over past 2 months. 07/24 attending: Leukocytosis probably secondary to [place]. Patient white count improved although there is no-clear evidence of infection monitor without any antibiotics at this time Patient a bit confused secondary to ICU delirium. 08/01 patient continued confusion unable to comply with LifeVest and was cancelled. 08/02 Patient continues to have some confusion. VS 130/70 92 95% RA 08/02 Labs WBC 11.8 Na 132, BUN 60 CR 1.67 Treatment: Cardiac/ Monitor /Telemetry Plavix 75 MG Daily, Atorvastatin 80 MG at HS, Metoprolol Tartrate 50 MG PO BID, Amiodarone 400 MG BID, Eliquis 2.5 MG PO BID ASA 80 MG Daily, Aldactone 75 MG PO Daily After work up and study, please clarify which diagnosis is most appropriate? [ ] Metabolic Encephalopathy ruled out [ ] Encephalopathy is a valid diagnosis as evidenced by the following: [ ] Delirum [ ] Possible dementia with episodes of confusion (specify type if known) [ ] Unable to determine [ ] Other, please specify (Template Last Revised: April 2023) MTDD
--- NOTE | 2024-08-09 08:44 | EM ---
7 Day Event monitor note: Patient wore an event monitor for 7 days from 07/28/2024 through 08/03/2024. Findings: Patient's baseline heart rate was in normal sinus rhythm. There were no significant pauses greater than 2 seconds. There was frequent A-fib representing 15% A-fib burden. There was 1 episode of sustained ventricular tachycardia with maximum heart rate 203 bpm which patient had syncopal episode with. Minimum heart rate 62 bpm High heart rate 203 bpm Average heart rate 87 bpm Conclusions: 7-day event monitor showing frequent A-fib representing 15% A-fib burden and episode of ventricular tachycardia with symptoms of syncope. MTDD
== END 2024-08-02 14:28 | disposition home health service (06) | DRG 321 ==
LOC: EC 02:49 → 2SICU 02:53 → 3SCARD 07-27 17:37
PROVIDERS: ADMIT Hospitalist; ATTEND Hospitalist
PROC: B240ZZ3 Ultrasonography of Single Coronary Artery, Intravascular (ICD-10-PCS; principal; 2024-07-23 03:23)
PROC: 4A023N7 Measurement of Cardiac Sampling and Pressure, Left Heart, Percutaneous Approach (ICD-10-PCS; principal; 2024-07-23 03:23)
PROC: 027135Z Dilation of Coronary Artery, Two Arteries with Two Drug-eluting Intraluminal Devices, Percutaneous Approach (ICD-10-PCS; principal; 2024-07-23 03:23)
PROC: B2111ZZ Fluoroscopy of Multiple Coronary Arteries using Low Osmolar Contrast (ICD-10-PCS; principal; 2024-07-23 03:23)
PROC: 3E033RZ Introduction of Antiarrhythmic into Peripheral Vein, Percutaneous Approach (ICD-10-PCS; 2024-07-23 03:23)
DX: I21.19 ST elevation (STEMI) myocardial infarction involving other coronary artery of inferior wall (principal); G93.41 Metabolic encephalopathy; J96.01 Acute respiratory failure with hypoxia; I50.23 Acute on chronic systolic (congestive) heart failure; N17.0 Acute kidney failure with tubular necrosis; I13.0 Hypertensive heart and chronic kidney disease with heart failure and stage 1 through stage 4 chronic kidney disease, or unspecified chronic kidney disease; I27.20 Pulmonary hypertension, unspecified; I47.20 Ventricular tachycardia, unspecified; I48.19 Other persistent atrial fibrillation; F05 Delirium due to known physiological condition; E87.1 Hypo-osmolality and hyponatremia; I47.10 Supraventricular tachycardia, unspecified; I25.10 Atherosclerotic heart disease of native coronary artery without angina pectoris; I25.84 Coronary atherosclerosis due to calcified coronary lesion; N18.9 Chronic kidney disease, unspecified; I25.5 Ischemic cardiomyopathy; E78.5 Hyperlipidemia, unspecified; N40.0 Benign prostatic hyperplasia without lower urinary tract symptoms; E87.6 Hypokalemia; T50.2X5A Adverse effect of carbonic-anhydrase inhibitors, benzothiadiazides and other diuretics, initial encounter; D72.829 Elevated white blood cell count, unspecified; H35.30 Unspecified macular degeneration; H91.90 Unspecified hearing loss, unspecified ear; Z79.899 Other long term (current) drug therapy; Z85.828 Personal history of other malignant neoplasm of skin; Z87.891 Personal history of nicotine dependence; Z85.46 Personal history of malignant neoplasm of prostate; Z92.3 Personal history of irradiation; Z95.5 Presence of coronary angioplasty implant and graft
CPT/HCPCS: 36415; 70450; 71045; 80048; 80053; 80061; 81003; 83690; 83735; 83880; 83935; 84132; 84145; 84295; 84443; 84484; 85025; 85027; 85610; 85730; 87636; 92921; 93270; 93306; 93308; 93458; 94660; 96374; 96375; 99291

== ENCOUNTER 2024-09-14 07:29 | Inpatient (IN) | payer MEDICARE, BC ==
--- NOTE | 2024-09-14 07:42 | ED ---
General Adult HPI - General Chief complaint: Shortness of Breath Stated complaint: MARIE Time Seen by Provider: 09/14/24 07:32 Source: patient, EMS, RN notes reviewed, old records reviewed Mode of arrival: EMS Limitations: no limitations - History of Present Illness Initial comments: Patient is an 84-year-old male present to the emergency department with difficulty breathing. Onset of symptoms was just a couple hours ago. Patient notices when he got up to go to the bathroom. Patient does have some mild palpitations. No history of similar symptoms previously. No leg edema. No calf pain. Patient has mild chest tightness. Patient did have a heart attack around a month ago. - Related Data Home Medications Medication Instructions Recorded Confirmed Ergocalciferol (Vitamin D2) 1,250 mcg PO Q14D 07/23/24 07/23/24 [Drisdol (50,000 Iu)] NIFEdipine XL [Procardia XL] 30 mg PO DAILY 07/23/24 07/23/24 Simvastatin [Zocor] 20 mg PO HS 07/23/24 07/23/24 Tamsulosin [Flomax] 0.4 mg PO HS 07/23/24 07/23/24 Ubidecarenone [Q-Sorb Co Q-10] 200 mg PO DAILY 07/23/24 07/23/24 Vit C/E/Zn/Coppr/Lutein/Zeaxan 1 cap PO DAILY 07/23/24 07/23/24 [Preservision Areds 2 Softgel] Previous Rx's Medication Instructions Recorded Amiodarone [Cordarone] 400 mg PO BID #60 tab 08/02/24 Apixaban [Eliquis] 2.5 mg PO BID #60 tab 08/02/24 Aspirin 81 mg PO DAILY #14 tab 08/02/24 Atorvastatin [Lipitor] 80 mg PO HS #90 tab 08/02/24 Clopidogrel [Plavix] 75 mg PO DAILY #30 tab 08/02/24 Dapagliflozin Propanediol [Farxiga] 5 mg PO DAILY #30 tab 08/02/24 Furosemide [Lasix] 20 mg PO DAILY #30 tab 08/02/24 Metoprolol Tartrate [Lopressor] 50 mg PO BID #60 tab 08/02/24 Spironolactone [Aldactone] 25 mg PO DAILY #30 tab 08/02/24 Allergies Allergy/AdvReac Type Severity Reaction Status Date / Time No Known Allergies Allergy Verified 09/14/24 07:37 Review of Systems ROS Statement: Those systems with pertinent positive or pertinent negative responses have been documented in the HPI. ROS Other: All systems not noted in ROS Statement are negative. Constitutional: Denies: fever Eyes: Denies: eye pain ENT: Denies: ear pain Respiratory: Reports: as per HPI, dyspnea Cardiovascular: Reports: as per HPI, chest pain, palpitations Gastrointestinal: Denies: abdominal pain Musculoskeletal: Denies: back pain Past Medical History Past Medical History: Hyperlipidemia, Hypertension, Osteoarthritis (OA), Prostate Disorder Additional Past Medical History / Comment(s): skin cancer, wet mac degeneration with bilateral injections. Previous cataracts, prostate CA with radiation and seeds approx 20 years ago. History of Any Multi-Drug Resistant Organisms: None Reported Past Surgical History: Heart Catheterization With Stent Past Anesthesia/Blood Transfusion Reactions: No Reported Reaction Date of Last Stent Placement:: 07-23-24 Smoking Status: Former smoker Past Alcohol Use History: Daily Past Drug Use History: None Reported General Exam Limitations: no limitations General appearance: alert, in no apparent distress Head exam: Present: normocephalic Eye exam: Present: normal appearance Respiratory exam: Present: respiratory distress, wheezes Cardiovascular Exam: Present: tachycardia GI/Abdominal exam: Present: soft. Absent: tenderness Extremities exam: Present: normal inspection. Absent: pedal edema, calf tenderness Neurological exam: Present: alert Psychiatric exam: Present: normal affect, normal mood Skin exam: Present: normal color Course Vital Signs 09/14/24 09/14/24 09/14/24 07:30 07:38 07:41 Pulse Rate 122 H 122 H Respiratory 30 H 28 H Rate Blood Pressure 184/91 O2 Sat by Pulse 94 L Oximetry Fraction of 40 Inspired Oxygen (FIO2) 09/14/24 09/14/24 09/14/24 07:47 08:10 09:28 Pulse Rate 122 H 78 120 H Respiratory 18 14 Rate Blood Pressure 142/86 123/74 O2 Sat by Pulse 95 96 Oximetry Fraction of Inspired Oxygen (FIO2) EKG Findings - EKG Results: EKG: interpreted by ERMD (Left axis. Lateral T wave inversion. Tachycardia with narrow complex, regular rhythm. Septal and inferior Q waves.) EKG shows: tachycardia Medical Decision Making - Medical Decision Making Was pt. sent in by a medical professional or institution (GIOVANNI Briseno, FIELD PLACEMENT DIRECTOR, urgent care, hospital, or prison...) When possible be specific @ -No Did you speak to anyone other than the patient for history (EMS, parent, family, police, friend...)? What history was obtained from this source @ -EMS provides history of transport and concerns for flash pulmonary edema Did you review nursing and triage notes (agree or disagree)? Why? @ -I reviewed and agree with nursing and triage notes Were old charts reviewed (outside hosp., previous admission, EMS record, old EKG, old radiological studies, urgent care reports/EKG's, prison records)? Report findings @ -Previous admission reviewed Differential Diagnosis (chest pain, altered mental status, abdominal pain women, abdominal pain men, vaginal bleeding, weakness, fever, dyspnea, syncope, headache, dizziness, GI bleed, back pain, seizure, CVA, palpatations, mental health, musculoskeletal)? @ -Differential Dyspnea: Coronary syndrome, arrhythmia, tamponade, asthma, COPD, pulmonary embolism, pneumonia, pneumothorax, pulmonary effusion, anaphylaxis, diabetic ketoacidosis, flailed chest, pulmonary contusion, diaphragmatic rupture, anemia, dee romuscular, this is not meant to be an all-inclusive list. EKG interpreted by me (3pts min.). @ -As above X-rays interpreted by me (1pt min.). @ -Interstitial edema concern with pulmonary edema CT interpreted by me (1pt min.). @ -None done U/S interpreted by me (1pt. min.). @ -None done What testing was considered but not performed or refused? (CT, X-rays, U/S, labs)? Why? @ -None What meds were considered but not given or refused? Why? @ -None Did you discuss the management of the patient with other professionals (professionals i.e. GIOVANNI Briseno, FIELD PLACEMENT DIRECTOR, lab, RT, psych nurse, director social, franchise business consultant, teacher, weapons electrical engineering officer, case filler)? Give summary @ -[facility] physician Dr. Ortiz, to admit covering Dr. Dupree Was smoking cessation discussed for >3mins.? @ -No Was critical care preformed (if so, how long)? @ -32 minutes critical care time Were there social determinants of health that impacted care today? How? (Homelessness, low income, unemployed, alcoholism, drug addiction, transportati on, low edu. Level, literacy, decrease access to med. care, usp, rehab)? @ -No Was there de-escalation of care discussed even if they declined (Discuss DNR or withdrawal of care, Hospice)? DNR status @ -No What co-morbidities impacted this encounter? (DM, HTN, Smoking, COPD, CAD, Cancer, CVA, ARF, Chemo, Hep., AIDS, mental health diagnosis, sleep apnea, morbid obesity)? @ -None Was patient admitted / discharged? Hospital course, mention meds given and route, prescriptions, significant lab abnormalities, going to OR and other pertinent info. @ -Patient presents with sudden onset dyspnea. Chest x-ray and labs concerning for pulmonary edema. Patient placed on BiPAP with significant improvement. Patient will be admitted with consults. Admission orders written. Patient reevaluated and updated. Undiagnosed new problem with uncertain prognosis? @ -No Drug Therapy requiring intensive monitoring for toxicity (Heparin, Nitro, Insulin, Cardizem)? @ -BiPAP Were any procedures done? @ -No Diagnosis/symptom? @ -Pulmonary edema Acute, or Chronic, or Acute on Chronic? @ -Acute Uncomplicated (without systemic symptoms) or Complicated (systemic symptoms)? @ -Default Side effects of treatment? @ -No Exacerbation, Progression, or Severe Exacerbation? @ -No Poses a threat to life or bodily function? How? (Chest pain, [place], [place], pneumonia, PE, COPD, DKA, ARF, appy, cholecystitis, CVA, Diverticulitis, Homicidal, Suicidal, threat to staff... and all critical care pts) @ -Threat to pulmonary and cardiac function - Lab Data Result diagrams: 09/14/24 07:25 09/14/24 07:25 Lab Results 09/14/24 09/14/24 09/14/24 Range/Units 07:25 07:25 07:25 WBC 14.35 H (4.50-10.00) 10*3/uL RBC 4.44 (4.40-5.60) 10*6/uL Hgb 13.1 (13.0-17.0) g/dL Hct 39.9 (39.6-50.0) % MCV 89.9 (80.0-97.0) fL MCH 29.5 (27.0-32.0) pg MCHC 32.8 (32.0-37.0) g/dL Plt Count 272 (140-440) 10*3/uL MPV 8.9 L (9.5-12.2) fL Immature Gran % (Auto) 0.3 % Neutrophils % (Manual) 45 % Band Neuts % (Manual) 4 % Lymphocytes % (Manual) 44 % Monocytes % (Manual) 1 % Eosinophils % (Manual) 6 % Immature Gran # 0.05 H (0.00-0.04) 10*3/uL Neutrophils # (Manual) 7.03 (1.3-7.7) k/uL Lymphocytes # (Manual) 6.31 H (1.0-4.8) k/uL Monocytes # (Manual) 0.14 (0-1.0) k/uL Eosinophils # (Manual) 0.86 H (0-0.7) k/uL Nucleated RBCs 0 (0-0) /100 WBC Differential Comment P Manual Slide Review Performed Poikilocytosis (manual Present PT 11.9 (10.0-12.5) sec INR 1.1 (<1.2) APTT 23.0 (22.0-30.0) sec Sodium 133 L (137-145) mmol/L Potassium 3.6 (3.5-5.1) mmol/L Chloride 101 (98-107) mmol/L Carbon Dioxide 23 (22-30) mmol/L Anion Gap 9 mmol/L BUN 10 (9-20) mg/dL Creatinine 0.86 (0.66-1.25) mg/dL Est GFR (CKD-EPI)AfAm >90 (>60 ml/min/1.73 sqM) Est GFR (CKD-EPI)NonAf 80 (>60 ml/min/1.73 sqM) Glucose 151 H (74-99) mg/dL Plasma Lactic Acid Jim (0.7-2.0) mmol/L Calcium 8.8 (8.4-10.2) mg/dL Magnesium 1.8 (1.6-2.3) mg/dL Total Bilirubin 1.1 (0.2-1.3) mg/dL AST 34 (17-59) U/L ALT 25 (4-49) U/L Alkaline Phosphatase 91 (38-126) U/L Troponin I (0.000-0.034) ng/mL NT-Pro-B Natriuret Pep 76806 pg/mL Total Protein 6.7 (6.3-8.2) g/dL Albumin 3.8 (3.5-5.0) g/dL Influenza Type A (PCR) (Not Detectd) Influenza Type B (PCR) (Not Detectd) RSV (PCR) (Not Detectd) SARS-CoV-2 (PCR) (Not Detectd) 09/14/24 09/14/24 09/14/24 Range/Units 07:25 07:25 07:25 WBC (4.50-10.00) 10*3/uL RBC (4.40-5.60) 10*6/uL Hgb (13.0-17.0) g/dL Hct (39.6-50.0) % MCV (80.0-97.0) fL MCH (27.0-32.0) pg MCHC (32.0-37.0) g/dL Plt Count (140-440) 10*3/uL MPV (9.5-12.2) fL Immature Gran % (Auto) % Neutrophils % (Manual) % Band Neuts % (Manual) % Lymphocytes % (Manual) % Monocytes % (Manual) % Eosinophils % (Manual) % Immature Gran # (0.00-0.04) 10*3/uL Neutrophils # (Manual) (1.3-7.7) k/uL Lymphocytes # (Manual) (1.0-4.8) k/uL Monocytes # (Manual) (0-1.0) k/uL Eosinophils # (Manual) (0-0.7) k/uL Nucleated RBCs (0-0) /100 WBC Differential Comment Manual Slide Review Poikilocytosis (manual PT (10.0-12.5) sec INR (<1.2) APTT (22.0-30.0) sec Sodium (137-145) mmol/L Potassium (3.5-5.1) mmol/L Chloride (98-107) mmol/L Carbon Dioxide (22-30) mmol/L Anion Gap mmol/L BUN (9-20) mg/dL Creatinine (0.66-1.25) mg/dL Est GFR (CKD-EPI)AfAm (>60 ml/min/1.73 sqM) Est GFR (CKD-EPI)NonAf (>60 ml/min/1.73 sqM) Glucose (74-99) mg/dL Plasma Lactic Acid Jim 2.0 (0.7-2.0) mmol/L Calcium (8.4-10.2) mg/dL Magnesium (1.6-2.3) mg/dL Total Bilirubin (0.2-1.3) mg/dL AST (17-59) U/L ALT (4-49) U/L Alkaline Phosphatase (38-126) U/L Troponin I 0.056 H* (0.000-0.034) ng/mL NT-Pro-B Natriuret Pep pg/mL Total Protein (6.3-8.2) g/dL Albumin (3.5-5.0) g/dL Influenza Type A (PCR) Not Detected (Not Detectd) Influenza Type B (PCR) Not Detected (Not Detectd) RSV (PCR) Not Detected (Not Detectd) SARS-CoV-2 (PCR) Not Detected (Not Detectd) Critical Care Time Critical Care Time: Yes Disposition Clinical Impression: Pulmonary edema Disposition: ADMITTED IP TO THIS HOSP Condition: Serious Is patient prescribed a controlled substance at d/c from ED?: No Time of Disposition: 09:33
[2024-09-14] MEDS: IPRATROPIUM-ALBUTEROL 3 ML NEB INHALATION STA (07:45)
[2024-09-14 07:46] LABS: HCT 39.9 % (39.6-50.0); HGB 13.1 g/dL (13.0-17.0); MCH 29.5 pg (27.0-32.0); MCHC 32.8 g/dL (32.0-37.0); MCV 89.9 fL (80.0-97.0); Mean Platelet Volume 8.9 fL (9.5-12.2); Platelet Count 272 10*3/uL (140-440); RBC 4.44 10*6/uL (4.40-5.60); RDW 14.8 % (11.5-14.5); WBC 14.35 10*3/uL (4.50-10.00)
[2024-09-14 07:59] LABS: INR 1.1 (<1.2); Prothrombin Time 11.9 sec (10.0-12.5)
[2024-09-14 08:03] LABS: ALT 25 U/L (4-49); AST 34 U/L (17-59); African American GFR (CKD) >90 (>60 ml/min/1.73 sqM); Albumin 3.8 g/dL (3.5-5.0); Alkaline Phosphatase 91 U/L (38-126); Anion Gap 9 mmol/L; Blood Urea Nitrogen 10 mg/dL (9-20); Calcium 8.8 mg/dL (8.4-10.2); Carbon Dioxide 23 mmol/L (22-30); Chloride 101 mmol/L (98-107); Glucose 151 mg/dL (74-99); Magnesium 1.8 mg/dL (1.6-2.3); Non-African American GFR(CKD) 80 (>60 ml/min/1.73 sqM); Potassium 3.6 mmol/L (3.5-5.1); Sodium 133 mmol/L (137-145); Total Bilirubin 1.1 mg/dL (0.2-1.3); Total Protein 6.7 g/dL (6.3-8.2)
--- NOTE | 2024-09-14 08:03 | XR ---
EXAMINATION TYPE: XR chest 1V portable DATE OF EXAM: 09/14/2024 COMPARISON: Chest x-ray August 01, 2024 CLINICAL INDICATION: Male, 84 years old with history of derek; TECHNIQUE: Single frontal view of the chest is obtained. FINDINGS: There are increased interstitial markings bilaterally. The cardiac silhouette size is sta ble and upper limits of normal. The osseous structures are demineralized. IMPRESSION: New mild to moderate interstitial edema. Correlate for suspected fluid overload state. [facility], , 09/14/2024 8:00 AM
[2024-09-14] MEDS: FUROSEMIDE 10 MG/ML 4 ML VIAL IV STA (08:05)
[2024-09-14 08:11] LABS: NT-Pro-B-Type Natriuretic Pept 10600 pg/mL
[2024-09-14 08:20] LABS: Influenza A Not Detected (Not Detectd); Influenza B Not Detected (Not Detectd); RSV Not Detected (Not Detectd)
[2024-09-14 09:01] LABS: Band Neutrophils % 4 %; Eosinophils # (M) 0.86 k/uL (0-0.7); Lymphocytes # (M) 6.31 k/uL (1.0-4.8); Monocytes # (M) 0.14 k/uL (0-1.0); Neutrophils # (M) 7.03 k/uL (1.3-7.7); Neutrophils % (M) 45 %; Nucleated Red Blood Cells 0 /100 WBC (0-0); Total Cells Counted 100
[2024-09-14 09:02] LABS: Poikilocytosis (M) Present
[2024-09-14] MEDS: NITROGLYCERIN OINT 1 INCH/GM PACKET TOPICAL SCH (09:40)
[2024-09-14] MEDS: ASPIRIN 325 MG TAB PO STA (09:44)
[2024-09-14] MEDS ORDERED: ONDANSETRON 4 MG/2 ML VIAL IVP PRN (10:17)
[2024-09-14] MEDS ORDERED: IPRATROPIUM-ALBUTEROL 3 ML NEB INHALATION PRN (10:17)
[2024-09-14] MEDS: METOPROLOL TARTRATE 50 MG TAB PO SCH (10:53)
[2024-09-14] MEDS: HEPARIN SODIUM 1,000 UN/ML (10ML VL) IV ONE (10:56)
[2024-09-14] MEDS: HEPARIN SOD,PORK IN 0.45% NACL 25,000 UNIT in 0.45% NACL 1 250ML.BAG IV SCH (10:59)
--- NOTE | 2024-09-14 10:59 | P.HPIM ---
History of Present Illness H&P Date: 09/14/24 History of present illness; patient is a 84-year-old gentleman past medical history significant for coronary artery disease status post PCI of RCA in July of this year, ischemic cardiomyopathy with EF of 20 to 30%, A-fib, hypertension presented the ER because of shortness of breath. Patient stated he was all right this morning when he woke up with shortness of breath, shortness of breath was sudden in onset, was present on rest as well exertion. Patient was having a hard time walking and could not even talk because of being short of breath. There was complaint of occasional chest pressure. There is no complaint of swelling of feet. There was no complaint of orthopnea or PND. Patient denies any palpitation. Denies any nausea, vomiting abdominal pain. Patient denies any complaint of dizziness. There is no complaint of headache. Because of the symptoms, patient came to the ER Initial lab work done in the ER showed WBC 14.35, hemoglobin 13.1, platelet count 272, sodium 133, potassium 3.6, BUN 10, creatinine 0.86, glucose 151, lactate 2, calcium 8.8, magnesium 1.8, total bilirubin 1.1 troponin 0.056, proBNP 16369 Influenza A not detected Influenza B not detected RSV not detected COVID-19 not detected EKG done in the ER showed heart rate of 123, no ST segment elevation or depression seen, biphasic T waves in V5 V6 Chest x-ray done in the ER showed mild to moderate interstitial edema, fluid overload state Patient admitted to internal medicine service REVIEW OF SYSTEMS: CONSTITUTIONAL: No fever, no malaise, no fatigue. HEENT: No recent visual problems or hearing problems. Denied any sore throat. CARDIOVASCULAR: As mentioned above PULMONARY: As mentioned above. GASTROINTESTINAL: No diarrhea, no nausea, no vomiting, no abdominal pain. NEUROLOGICAL: No headaches, no weakness, no numbness. HEMATOLOGICAL: Denies any bleeding or petechiae. GENITOURINARY: Denies any burning micturition, frequency, or urgency. MUSCULOSKELETAL/RHEUMATOLOGICAL: Denies any joint pain, swelling, or any muscle pain. ENDOCRINE: Denies any polyuria or polydipsia. The rest of the 14-point review of systems is negative. PHYSICAL EXAMINATION: GENERAL: The patient is alert and oriented x3, respiratory distress, ill looking HEENT: Pupils are round and equally reacting to light. EOMI. No scleral icterus. No conjunctival pallor. Normocephalic, atraumatic. No pharyngeal erythema. No thyromegaly. CARDIOVASCULAR: S1 and S2 present. No murmurs, rubs, or gallops. PULMONARY: Tachypneic, diminished at the bases no wheezing or crackles. ABDOMEN: Soft, nontender, nondistended, normoactive bowel sounds. No palpable organomegaly. MUSCULOSKELETAL: No joint swelling or deformity. EXTREMITIES: No cyanosis, clubbing, or pedal edema. NEUROLOGICAL: Gross neurological examination did not reveal any focal deficits. SKIN: No rashes. Assessment and plan Acute hypoxemic respiratory failure Elevated troponin Acute on chronic systolic CHF History of acute inferolateral myocardial infarction s/p PCI RCA on 07/23/2024 Persistent Afib History of hypertension History of ischemic cardiomyopathy with EF 25-30% with component of tachycardia induced cardiomyopathy. SVT Episode of nonsustained ventricular tachycardia Monitor vital signs Monitor CBC Monitor CMP Continue telemetry monitoring Continue oxygen supplementation Continue use of BiPAP as needed Trend troponin Strict I's and O's Daily weights Fluids restriction of 1800 mL Low salt diet Start IV Lasix 40 every 12 Ordered breathing treatments Ordered Mucinex Resume home meds Consult pulmonary Consult cardiology Labs and medication were reviewed.. Continue same treatment. Continue with symptomatic treatment. Resume home medication. Monitor labs and vitals. DVT and GI prophylaxis. Further recommendations as per clinical course of the patient Dictation was produced using [employer] dictation software. please excuse any grammatical, word or spelling errors. Past Medical History Past Medical History: Hyperlipidemia, Hypertension, Osteoarthritis (OA), Prostate Disorder Additional Past Medical History / Comment(s): skin cancer, wet mac degeneration with bilateral injections. Previous cataracts, prostate CA with radiation and seeds approx 20 years ago. History of Any Multi-Drug Resistant Organisms: None Reported Past Surgical History: Heart Catheterization With Stent Past Anesthesia/Blood Transfusion Reactions: No Reported Reaction Date of Last Stent Placement:: 07-23-24 Smoking Status: Former smoker Past Alcohol Use History: Daily Past Drug Use History: None Reported Medications and Allergies Home Medications Medication Instructions Recorded Confirmed Type Ergocalciferol (Vitamin D2) 1,250 mcg PO Q14D 07/23/24 09/14/24 History [Drisdol (50,000 Iu)] Tamsulosin [Flomax] 0.4 mg PO HS 07/23/24 09/14/24 History Ubidecarenone [Q-Sorb Co Q-10] 200 mg PO DAILY 07/23/24 09/14/24 History Vit C/E/Zn/Coppr/Lutein/Zeaxan 1 cap PO DAILY 07/23/24 09/14/24 History [Preservision Areds 2 Softgel] Apixaban [Eliquis] 2.5 mg PO BID #60 tab 08/02/24 09/14/24 Rx Atorvastatin [Lipitor] 80 mg PO HS #90 tab 08/02/24 09/14/24 Rx Clopidogrel [Plavix] 75 mg PO DAILY #30 tab 08/02/24 09/14/24 Rx Spironolactone [Aldactone] 25 mg PO DAILY #30 tab 08/02/24 09/14/24 Rx Amiodarone [Cordarone] 200 mg PO DAILY 09/14/24 09/14/24 History Dapagliflozin Propanediol [Farxiga] 10 mg PO DAILY 09/14/24 09/14/24 History Metoprolol Tartrate [Lopressor] 25 mg PO BID 09/14/24 09/14/24 History Allergies Allergy/AdvReac Type Severity Reaction Status Date / Time No Known Allergies Allergy Verified 09/14/24 10:20 Physical Exam Vitals: Vital Signs Pulse Resp BP Pulse Ox FiO2 09/14/24 09:28 120 H 14 123/74 96 09/14/24 08:10 78 18 142/86 95 09/14/24 07:47 122 H 09/14/24 07:41 40 09/14/24 07:38 122 H 28 H 09/14/24 07:30 122 H 30 H 184/91 94 L Intake and Output 09/13/24 09/14/24 09/14/24 22:59 06:59 14:59 Other: Weight 63.503 kg Results CBC & Chem 7: 09/14/24 07:25 09/14/24 07:25 Labs: Abnormal Lab Results - Last 24 Hours (Table) 09/14/24 09/14/24 09/14/24 Range/Units 07:25 07:25 07:25 WBC 14.35 H (4.50-10.00) 10*3/uL MPV 8.9 L (9.5-12.2) fL Immature Gran # 0.05 H (0.00-0.04) 10*3/uL Lymphocytes # (Manual) 6.31 H (1.0-4.8) k/uL Eosinophils # (Manual) 0.86 H (0-0.7) k/uL Sodium 133 L (137-145) mmol/L Glucose 151 H (74-99) mg/dL Troponin I 0.056 H* (0.000-0.034) ng/mL
[2024-09-14 11:08] LABS: Basophils # (A) 0.07 10*3/uL (0.00-0.10); Basophils % (A) 0.7 %; Eosinophils # (A) 0.03 10*3/uL (0.04-0.35); Eosinophils % (A) 0.3 %; HCT 39.9 % (39.6-50.0); HGB 13.1 g/dL (13.0-17.0); Lymphocytes # (A) 1.54 10*3/uL (0.90-5.00); Lymphocytes % (A) 14.4 %; MCH 29.3 pg (27.0-32.0); MCHC 32.8 g/dL (32.0-37.0); MCV 89.3 fL (80.0-97.0); Mean Platelet Volume 9.5 fL (9.5-12.2); Monocytes % (A) 13.1 %; Neutrophils # (A) 7.62 10*3/uL (1.80-7.70); Neutrophils % (A) 70.9 %; Platelet Count 277 10*3/uL (140-440); RBC 4.47 10*6/uL (4.40-5.60); RDW 14.6 % (11.5-14.5); WBC 10.72 10*3/uL (4.50-10.00)
[2024-09-14] MEDS: SPIRONOLACTONE 25 MG TAB PO SCH (11:14)
[2024-09-14] MEDS: CLOPIDOGREL 75 MG TAB PO SCH (11:14)
[2024-09-14] MEDS: DEXTROSE 5% IN WATER 100 ML with AMIODARONE 150 MG IV ONE (11:15)
[2024-09-14] MEDS: AMIODARONE 360 MG in DEXTROSE 5% IN WATER 200 ML IV ONE (11:36)
[2024-09-14 11:41] LABS: INR 1.1 (<1.2); Partial Thromboplastin Time 23.7 sec (22.0-30.0); Prothrombin Time 11.8 sec (10.0-12.5)
[2024-09-14] MEDS: DAPAGLIFLOZIN PROPANEDIOL 10 MG TABLET PO SCH (11:57)
--- NOTE | 2024-09-14 12:45 | P.CRDCN ---
History of Present Illness Consult date: 09/14/24 Reason for Consult (text): Pulmonary edema History of present illness: This is an 84-year-old male patient of Dr. Martinez with past medical history of coronary artery disease status post PCI, paroxysmal atrial fibrillation on Eliquis, ventricular tachycardia, ischemic cardiomyopathy, hypertension, hyperlipidemia. Patient had a recent hospitalization in July of this year at which time he was treated for an acute inferior wall myocardial infarction. He did have an episode of tachycardia during his stay most consistent with SVT. He also suffered from significant confusion during the stay. According to the patient and family members at bedside, he has done very well at home until this morning. Patient could not breathe he was short of breath and clammy. He did have some palpitations this morning. No chest pain. He always has a cough. No fever or chills. No lower extremity edema. He has been placed on BiPAP and states he was feeling better with that treatment. Vagal movers applied without change in cardiac rhythm. Heart rate is running in the 120s. Blood pressure 128/65, heart rate 59, pulse ox 100% on 3 L. Patient has been started on IV Lasix 40 mg every 12 hours. Patient is seen today in the emergency center [facility] for a bed on the cardiac stepdown unit. -EKG: Sinus tachycardia -Chest x-ray: New mild to moderate interstitial edema. Correlate for suspected fluid overload state. -Laboratory studies: WBC initially 14.3 now 10.7. Hemoglobin 13.1. Sodium 133, potassium 3.6, BUN 10 creatinine 0.86. proBNP 10,600. Troponin 0.056 and 0.163. Cepheid viral panel not detected. -Home cardiac medications: amiodarone 200 mg daily, Eliquis 2.5 mg twice daily, atorvastatin 80 mg daily, Farxiga 10 mg daily, Lopressor 25 mg twice daily, spironolactone 25 mg daily. -7-day event monitor performed 07/28 - 08/03/2024 revealed atrial fibrillation with 15% burden and episode of V. tach with symptoms of syncope. -Echocardiogram performed at [facility] on 07/24/2024 revealed EF of 25 to 30%. Moderate pulmonary hypertension with RVSP 47 mmHg. Mild mitral regurgitation and mild tricuspid regurgitation. - Cardiac catheterization performed 07/23/2024 revealed calcified coronary arteries and right brachial artery. Acutely occluded distal RCA. Moderate disease in the mid LAD. Patient underwent successful stenting of the distal RCA. There was also evidence of a lesion at the ostium of the PDA with BLAYNE III flow. Possibility of thrombotic occlusion in the distal segment of the PDA cannot be excluded. Review Of Systems: At the time of my exam: CONSTITUTIONAL: Denies fever or chills. HEENT: Denies blurred vision, vision changes, or eye pain. Denies hemoptysis CARDIOVASCULAR: Denies chest pain. Denies orthopnea. Denies PND. Denies palpitations RESPIRATORY: Reports shortness of breath. Reports chronic cough GASTROINTESTINAL: Denies abdominal pain. Denies nausea or vomiting. HEMATOLOGIC: Denies bleeding disorders. GENITOURINARY: Denies any blood in urine. SKIN: Denies puritis. Denies rash. Physical examination: Gen: This is an 84-year-old male in mild to moderate respiratory distress VS: reviewed HEENT: Head is atraumatic, normocephalic. Pupils equal, round. Sclerae is anicteric. NECK: Supple. No JVD. LUNGS: Bilateral crackles. Mild accessory muscle usage, mild intercostal retrac tions. HEART: Regular rate and rhythm. 2/6 systolic ejection murmur. ABDOMEN: Soft No tenderness. EXTREMITIES: No pedal edema. No calf tenderness. NEUROLOGICAL: Patient is awake, alert and oriented x3. Assessment: Acute on chronic systolic heart failure Acute hypoxic respiratory failure Tachycardia most likely SVT and previous episodes of SVT History of recent acute inferior lateral AK status post PCI of the RCA Paroxysmal atrial fibrillation on Eliquis History of ventricular tachycardia Ischemic cardiomyopathy with EF of 25 to 30% with component of tachycardia induced cardiomyopathy Hypertension Hyperlipidemia Plan: Resume patient's home cardiac medications Start patient on amiodarone bolus followed by drip Start patient on heparin drip for 24 hours, hold Eliquis Continue patient on IV Lasix 40 mg every 12 hours Monitor EYAD, daily weights, electrolytes and renal function Obtain repeat troponins Obtain 2-D echocardiogram and Doppler study to assess cardiac structure and function Further recommendations to follow based upon clinical course Thank you kindly for this consultation. Nurse practitioner note has been reviewed, I agree with documented findings and plan of care. Patient was seen and examined. Past Medical History Past Medical History: Hyperlipidemia, Hypertension, Osteoarthritis (OA), Prostate Disorder Additional Past Medical History / Comment(s): skin cancer, wet mac degeneration with bilateral injections. Previous cataracts, prostate CA with radiation and seeds approx 20 years ago. History of Any Multi-Drug Resistant Organisms: None Reported Past Surgical History: Heart Catheterization With Stent Past Anesthesia/Blood Transfusion Reactions: No Reported Reaction Date of Last Stent Placement:: 07-23-24 Smoking Status: Former smoker Past Alcohol Use History: Daily Past Drug Use History: None Reported Medications and Allergies Home Medications Medication Instructions Recorded Confirmed Type Ergocalciferol (Vitamin D2) 1,250 mcg PO Q14D 07/23/24 09/14/24 History [Drisdol (50,000 Iu)] Tamsulosin [Flomax] 0.4 mg PO HS 07/23/24 09/14/24 History Ubidecarenone [Q-Sorb Co Q-10] 200 mg PO DAILY 07/23/24 09/14/24 History Vit C/E/Zn/Coppr/Lutein/Zeaxan 1 cap PO DAILY 07/23/24 09/14/24 History [Preservision Areds 2 Softgel] Apixaban [Eliquis] 2.5 mg PO BID #60 tab 08/02/24 09/14/24 Rx Atorvastatin [Lipitor] 80 mg PO HS #90 tab 08/02/24 09/14/24 Rx Clopidogrel [Plavix] 75 mg PO DAILY #30 tab 08/02/24 09/14/24 Rx Spironolactone [Aldactone] 25 mg PO DAILY #30 tab 08/02/24 09/14/24 Rx Amiodarone [Cordarone] 200 mg PO DAILY 09/14/24 09/14/24 History Dapagliflozin Propanediol [Farxiga] 10 mg PO DAILY 09/14/24 09/14/24 History Metoprolol Tartrate [Lopressor] 25 mg PO BID 09/14/24 09/14/24 History Allergies Allergy/AdvReac Type Severity Reaction Status Date / Time No Known Allergies Allergy Verified 09/14/24 10:20 Physical Exam Vitals: Vital Signs Pulse Resp BP Pulse Ox FiO2 09/14/24 09:28 120 H 14 123/74 96 09/14/24 08:10 78 18 142/86 95 09/14/24 07:47 122 H 09/14/24 07:41 40 09/14/24 07:38 122 H 28 H 09/14/24 07:30 122 H 30 H 184/91 94 L Intake and Output 09/13/24 09/14/24 09/14/24 22:59 06:59 14:59 Other: Weight 63.503 kg Results 09/14/24 10:25 09/14/24 07:25 Cardiac Enzymes 09/14/24 09/14/24 Range/Units 07:25 07:25 AST 34 (17-59) U/L Troponin I 0.056 H* (0.000-0.034) ng/mL Coagulation 09/14/24 Range/Units 07:25 PT 11.9 (10.0-12.5) sec APTT 23.0 (22.0-30.0) sec CBC 09/14/24 Range/Units 07:25 WBC 14.35 H (4.50-10.00) 10*3/uL RBC 4.44 (4.40-5.60) 10*6/uL Hgb 13.1 (13.0-17.0) g/dL Hct 39.9 (39.6-50.0) % Plt Count 272 (140-440) 10*3/uL Comprehensive Metabolic Panel 09/14/24 Range/Units 07:25 Sodium 133 L (137-145) mmol/L Potassium 3.6 (3.5-5.1) mmol/L Chloride 101 (98-107) mmol/L Carbon Dioxide 23 (22-30) mmol/L BUN 10 (9-20) mg/dL Creatinine 0.86 (0.66-1.25) mg/dL Glucose 151 H (74-99) mg/dL Calcium 8.8 (8.4-10.2) mg/dL AST 34 (17-59) U/L ALT 25 (4-49) U/L Alkaline Phosphatase 91 (38-126) U/L Total Protein 6.7 (6.3-8.2) g/dL Albumin 3.8 (3.5-5.0) g/dL Current Medications Generic Name Dose Route Start Last Admin Trade Name Freq PRN Reason Stop Dose Admin Aspirin 325 mg 09/15/24 09:00 Aspirin 325 Mg Tab PO DAILY MARGO Furosemide 40 mg 09/14/24 20:00 Furosemide 10 Mg/Ml 4 Ml Vial IV Q12H [facility] Nitroglycerin 1 inch 09/14/24 09:30 09/14/24 09:40 Nitroglycerin Oint 1 Inch/Gm Packet TOPICAL 1 inch QID [facility] Administration Intake and Output 09/13/24 09/14/24 09/14/24 22:59 06:59 14:59 Other: Weight 63.503 kg Patient Weight 09/15/24 06:59 Weight 63.503 kg 09/14/24 07:25 09/14/24 07:25
--- NOTE | 2024-09-14 17:25 | P.CNPUL ---
History of Present Illness Consult date: 09/14/24 Reason for consult: dyspnea History of present illness: This is a 84-year-old male patient was seen in the Emergency Department. The patient is known to have coronary artery disease and the patient underwent a recent coronary intervention and stenting of the RCA. He is also known to have paroxysmal atrial fibrillation and ischemic cardiomyopathy with impaired ejection fraction of 25% and previous history of ventricular tachycardia as noted on previous hospitalization. The patient was in the hospital back in July 2024 and at that time he was treated for an acute inferior wall myocardial infarction and during his last hospitalization he also encountered an episode of tachycardia/V. tach/SVT. In any rate, the patient was stabilized and the patient was discharged home and he acutely became short of breath and presented to the hospital because of worsening shortness of breath and was found to be in acute pulmonary edema. Initially, he was started on BiPAP therapy at a pressure of 12 or 5 cm of water in the emergency department. At the time of my arrival, the patient was already given Lasix with excellent urine output and the patient was already feeling better and he was transition to nasal cannula 3 L/min. He was able to communicate. He is hard of hearing. Family was at the bedside. Denied having any chest pain. No significant edema lower extremities. He has been compliant to his medications. Denies drinking excessive amount of fluids Blood work showed a proBNP level of 10,600, troponin was 0.05 and 0.1 respec tively x 2. The viral screen was negative. The white cell count was at 14.3 with a hemoglobin of 13.1. Platelet count was at 272. Normal coagulation profile. Normal electrolytes. Normal liver function test. EKG was also noted and the patient has a sinus tachycardia with subsequently improved. Q waves over the anterior leads suggestive of an old anteroseptal myocardial infarction. In terms of his cardiac workup, the patient underwent a cardiac catheterization on 07/23/2024 that showed calcified coronary arteries and the patient had acutely occluded distal RCA and moderate disease involving the mid LAD and the patient underwent successful stenting of the distal RCA and the patient had evidence of a lesion at the ostium of the PDA. Echocardiogram from 07/24/2024 showed an ejection fraction of 25 to 30% with moderate degree of pulm hypertension with a PA pressure of 47. The patient was taking a combination of Lopressor 25 mg twice a day, Farxiga 10 mg p.o. daily, amiodarone 200 mg p.o. daily, Aldactone 25 mg p.o. daily and Eliquis 2 0.5 mg on outpatient basis. Review of Systems Constitutional: Reports fatigue Eyes: denies as per HPI, denies blurred vision, denies bulging eye, denies decreased vision, denies diplopia, denies discharge, denies dry eye, denies irritation, denies itching, denies pain, denies photophobia, denies loss of peripheral vision, denies loss of vision, denies tunnel vision/blind spots Ears: deny: decreased hearing, ear discharge, earache, tinnitus Ears, nose, mouth and throat: Reports as per HPI Breasts: absent: as per HPI, gynecomastia Cardiovascular: Reports decreased exercise tolerance, Reports dyspnea on exertion Respiratory: Reports dyspnea Gastrointestinal: Reports as per HPI Genitourinary: Reports as per HPI Musculoskeletal: Reports as per HPI Musculoskeletal: absent: ankle pain, ankle stiffness, ankle swelling, as per HPI, elbow pain, elbow stiffness, elbow swelling, foot pain, foot stiffness, foot swelling, hand pain, hand stiffness, hand swelling, hip pain, hip stiffness, hip swelling, knee pain, knee stiffness, knee swelling, shoulder pa in, shoulder stiffness, shoulder swelling, wrist pain, wrist stiffness, wrist swelling Integumentary: Reports as per HPI Neurological: Reports as per HPI Psychiatric: Reports as per HPI Endocrine: Reports as per HPI Allergic/Immunologic: Reports as per HPI Past Medical History Past Medical History: Coronary Artery Disease (CAD), Heart Failure, Hyperlipidemia, Hypertension, Osteoarthritis (OA), Prostate Disorder Additional Past Medical History / Comment(s): skin cancer, wet mac degeneration with bilateral injections. Previous cataracts, prostate CA with radiation and seeds approx 20 years ago. History of Any Multi-Drug Resistant Organisms: None Reported Past Surgical History: Heart Catheterization With Stent Past Anesthesia/Blood Transfusion Reactions: No Reported Reaction Date of Last Stent Placement:: 07-23-24 Smoking Status: Former smoker Past Alcohol Use History: Daily Past Drug Use History: None Reported Medications and Allergies Home Medications Medication Instructions Recorded Confirmed Type Ergocalciferol (Vitamin D2) 1,250 mcg PO Q14D 07/23/24 09/14/24 History [Drisdol (50,000 Iu)] Tamsulosin [Flomax] 0.4 mg PO HS 07/23/24 09/14/24 History Ubidecarenone [Q-Sorb Co Q-10] 200 mg PO DAILY 07/23/24 09/14/24 History Vit C/E/Zn/Coppr/Lutein/Zeaxan 1 cap PO DAILY 07/23/24 09/14/24 History [Preservision Areds 2 Softgel] Apixaban [Eliquis] 2.5 mg PO BID #60 tab 08/02/24 09/14/24 Rx Atorvastatin [Lipitor] 80 mg PO HS #90 tab 08/02/24 09/14/24 Rx Clopidogrel [Plavix] 75 mg PO DAILY #30 tab 08/02/24 09/14/24 Rx Spironolactone [Aldactone] 25 mg PO DAILY #30 tab 08/02/24 09/14/24 Rx Amiodarone [Cordarone] 200 mg PO DAILY 09/14/24 09/14/24 History Dapagliflozin Propanediol [Farxiga] 10 mg PO DAILY 09/14/24 09/14/24 History Metoprolol Tartrate [Lopressor] 25 mg PO BID 09/14/24 09/14/24 History Allergies Allergy/AdvReac Type Severity Reaction Status Date / Time No Known Allergies Allergy Verified 09/14/24 10:20 Physical Exam Vitals: Vital Signs Temp Pulse Pulse Resp BP BP Pulse Ox 09/14/24 15:27 18 09/14/24 15:00 59 L 15 139/66 100 09/14/24 14:53 99 09/14/24 14:00 98.5 F 56 L 56 L 18 122/55 122/55 95 09/14/24 13:00 58 L 18 98 09/14/24 12:57 57 L 18 125/64 09/14/24 12:00 59 L 17 128/65 100 09/14/24 11:30 61 15 123/59 99 09/14/24 11:09 69 14 138/63 100 09/14/24 11:00 71 16 138/63 99 09/14/24 10:45 120 H 15 145/69 98 09/14/24 10:30 117 H 21 111/81 98 09/14/24 10:15 120 H 20 120/75 98 09/14/24 09:28 120 H 14 123/74 96 09/14/24 08:10 78 18 142/86 95 09/14/24 07:47 122 H 09/14/24 07:41 09/14/24 07:38 122 H 28 H 09/14/24 07:30 122 H 30 H 184/91 94 L FiO2 09/14/24 15:27 09/14/24 15:00 09/14/24 14:53 09/14/24 14:00 09/14/24 13:00 09/14/24 12:57 09/14/24 12:00 09/14/24 11:30 09/14/24 11:09 09/14/24 11:00 09/14/24 10:45 09/14/24 10:30 09/14/24 10:15 09/14/24 09:28 09/14/24 08:10 09/14/24 07:47 09/14/24 07:41 40 09/14/24 07:38 09/14/24 07:30 Intake and Output 09/14/24 09/14/24 09/14/24 06:59 14:59 22:59 Other: Weight 63.503 kg The patient appeared well nourished and normally developed. Vital signs as documented. The patient was taken off the BiPAP and the patient is currently on 3 Suboxone by nasal cannula Head exam is unremarkable. No scleral icterus or corneal arcus noted. Neck is with jugular venous distension, thyromegaly, or carotid bruits. Carotid upstrokes are brisk bilaterally. Lungs are clear to auscultation a showing crackles in lung base bilaterally. Cardiac exam reveals the PMI to be normally sized and situated. Rhythm is regular. First and second heart sounds normal. No murmurs, rubs or gallops. Abdominal exam reveals normal bowel sounds, no masses, no organomegaly and no aortic enlargement. Extremities are nonedematous and both femoral and pedal pulses are normal. Examination of the skin revealed no evidence of significant rashes, suspicious appearing nevi or other concerning lesions. Neurologically, the patient is awake and alert and the patient does not have any focal neurological deficit. Cranial nerves are essentially intact. Results - Laboratory Findings CBC and BMP: 09/14/24 10:25 09/14/24 07:25 PT/INR, D-dimer PT 11.8 sec (10.0-12.5) 09/14/24 10:25 INR 1.1 (<1.2) 09/14/24 10:25 Abnormal lab findings: Abnormal Labs 09/14/24 09/14/24 09/14/24 07:25 07:25 07:25 WBC 14.35 H MPV 8.9 L Immature Gran # 0.05 H Lymphocytes # (Manual) 6.31 H Monocytes # Eosinophils # Eosinophils # (Manual) 0.86 H Sodium 133 L Glucose 151 H Troponin I 0.056 H* 09/14/24 09/14/24 09:46 10:25 WBC 10.72 H MPV Immature Gran # 0.06 H Lymphocytes # (Manual) Monocytes # 1.40 H Eosinophils # 0.03 L Eosinophils # (Manual) Sodium Glucose Troponin I 0.163 H* - Diagnostic Findings Chest x-ray: image reviewed Assessment and Plan Plan: Acute pulmonary edema secondary to decompensated CHF with secondary shortness of breath and acute hypoxic respiratory failure Acute hypoxic respiratory failure initially treated with BiPAP and currently on 3 L of O2 nasal cannula Systolic heart failure with an ejection fraction of 25 to 30% based on echocardiogram that was done on 07/24/2024 Coronary artery disease and the patient is post inferior wall myocardial infa rction. The patient has undergone a recent hospitalization with a cardiac catheterization done on 07/23/2024 revealing calcified coronaries, occluded RCA, moderate disease involving the mid LAD and the patient is post successful stenting of the distal RCA and the patient also has an evidence of a lesion at the ostium of the PDA. Paroxysmal atrial fibrillation, current rhythm is sinus Previous history of ventricular tachycardia, maintained on amiodarone on outpatient basis Hypertension Hyperlipidemia Plan Admit the patient to cardiac floor. The patient has been taken off the BiPAP and the patient is currently on 3 L of oxygen nasal cannula Amiodarone bolus and drip per cardiology Continue IV Lasix 40 mg every 12 hours and monitor urine output and renal function Continue trending troponins Repeat echocardiogram Resume Plavix and aspirin Resume Farxiga Resume Lopressor 50 mg p.o. twice daily Resume Aldactone 25 mg p.o. daily Cardiology consultation we will continue to follow make further recommendations based on his progress. Cardiology has been consulted.
[2024-09-14] MEDS: AMIODARONE 450 MG in DEXTROSE 5% IN WATER 250 ML IV SCH (17:32)
--- NOTE | 2024-09-14 18:10 | CA ---
Transthoracic Echo Report Name: Epi Lloyd Age: 84 Gender: M : 1940 Exam Date: 09/14/2024 12:27 Exam Location: [facility] Ht (in): 65 Wt (lb): 140 Ordering Physician: Evette Barnhart Attending/Referring Phys: [id number], Obey Batch Room Technician Terrell Simpson, KATELYN Procedure CPT: Indications: lvf, NSTEMI Cardiac Hx: Technical Quality: Good Contrast 1: Definity Total Dose (mL): 2 Contrast 2: Total Dose (mL): MEASUREMENTS (Male / Female) Normal Values 2D ECHO LV Diastolic Diameter PLAX 4.5 cm 4.2 - 5.9 / 3.9 - 5.3 cm LV Systolic Diameter PLAX 3.6 cm IVS Diastolic Thickness 1.2 cm 0.6 - 1.0 / 0.6 - 0.9 cm LVPW Diastolic Thickness 1.2 cm 0.6 - 1.0 / 0.6 - 0.9 cm LV Relative Wall Thickness 0.5 RV Internal Dim ED PLAX 3.5 cm LA Systolic Diameter LX 3.8 cm 3.0 - 4.0 / 2.7 - 3.8 cm LV Diastolic Volume MOD BP 143.8 cm??? 67 - 155 / 56 - 104 cm??? LV Systolic Volume MOD BP 91.7 cm??? 22 - 58 / 19 - 49 cm??? LV Ejection Fraction MOD BP 36.2 % >= 55 % LV Diastolic Volume MOD 4C 131.5 cm??? LV Systolic Volume MOD 4C 79.2 cm??? LV Ejection Fraction MOD 4C 39.8 % LV Diastolic Length 4C 8.7 cm LV Systolic Length 4C 7.9 cm LV Diastolic Volume MOD 2C 146.9 cm??? LV Systolic Volume MOD 2C 95.2 cm??? LV Ejection Fraction MOD 2C 35.2 % LV Diastolic Length 2C 9.4 cm LV Systolic Length 2C 8.9 cm DOPPLER AI Peak Velocity 311.4 cm/s AI Peak Gradient 38.8 mmHg AI Pressure Half Time 427.7 ms TR Peak Velocity 299.7 cm/s TR Peak Gradient 35.9 mmHg Right Atrial Pressure 10.0 mmHg Pulmonary Artery Systolic Pressu 45.9 mmHg Right Ventricular Systolic Press 45.9 mmHg FINDINGS Left Ventricle Left ventricular ejection fraction is estimated at 35-40%. Mild concentric left ventricular hypertrophy. Moderately decreased left ventricular ejection fraction. Moderately reduced global left ventricular systolic function. Right Ventricle Moderate pulmonary hypertension. Right ventricular systolic pressure estimated at 46 mm hg. Right Atrium Left Atrium Mitral Valve Mitral valve thickened. No mitral stenosis. Mild mitral regurgitation. Aortic Valve Trileaflet aortic valve. Diffuse thickening (sclerosis) of the aortic valve cusps without reduced excursion. [id number] aortic regurgitation. Tricuspid Valve Structurally normal tricuspid valve. No tricuspid stenosis. Mild tricuspid regurgitation. Pulmonic Valve Structurally normal pulmonic valve. No pulmonic stenosis. Trace pulmonic regurgitation. Pericardium No pericardial effusion. Aorta Aortic annulus normal. CONCLUSIONS Limited echo LVEF 35 to 40% Mild concentric LVH, moderately reduced global LV systolic function No evidence of LV thrombus on contrast imaging RVSP estimated at 46 mmHg, moderate pulmonary hypertension Mild mitral regurgitation. Mild tricuspid regurgitation Calcified aortic valve with moderate aortic regurgitation Previewed by: Dr Rhys Ross (Electronically Signed) Final Date: 14 September 2024 18:09
[2024-09-14] MEDS: HEPARIN SODIUM 1,000 UN/ML (10ML VL) IV PRN (18:28)
[2024-09-14] MEDS: guaiFENesin 600 MG TABLET.ER PO SCH (21:16)
[2024-09-14] MEDS: FUROSEMIDE 10 MG/ML 4 ML VIAL IV SCH (21:17)
[2024-09-14] MEDS: ATORVASTATIN 80 MG TAB PO SCH (21:17)
[2024-09-15 07:23] LABS: Basophils # (A) 0.07 10*3/uL (0.00-0.10); Eosinophils # (A) 0.16 10*3/uL (0.04-0.35); Eosinophils % (A) 2.2 %; HCT 38.1 % (39.6-50.0); HGB 12.3 g/dL (13.0-17.0); Lymphocytes # (A) 2.49 10*3/uL (0.90-5.00); Lymphocytes % (A) 34.3 %; MCH 28.8 pg (27.0-32.0); MCHC 32.3 g/dL (32.0-37.0); MCV 89.2 fL (80.0-97.0); Mean Platelet Volume 9.6 fL (9.5-12.2); Monocytes # (A) 1.12 10*3/uL (0.20-1.00); Monocytes % (A) 15.4 %; Neutrophils # (A) 3.38 10*3/uL (1.80-7.70); Neutrophils % (A) 46.7 %; Platelet Count 236 10*3/uL (140-440); RBC 4.27 10*6/uL (4.40-5.60); WBC 7.25 10*3/uL (4.50-10.00)
[2024-09-15 07:34] LABS: INR 1.1 (<1.2); Prothrombin Time 11.8 sec (10.0-12.5)
[2024-09-15 07:36] LABS: African American GFR (CKD) >90 (>60 ml/min/1.73 sqM); Anion Gap 12 mmol/L; Blood Urea Nitrogen 13 mg/dL (9-20); Calcium 8.6 mg/dL (8.4-10.2); Carbon Dioxide 25 mmol/L (22-30); Chloride 96 mmol/L (98-107); Glucose 95 mg/dL (74-99); Non-African American GFR(CKD) 80 (>60 ml/min/1.73 sqM); Potassium 3.3 mmol/L (3.5-5.1); Sodium 133 mmol/L (137-145)
[2024-09-15] MEDS: LOSARTAN 25 MG TAB PO SCH (08:04)
[2024-09-15] MEDS: APIXABAN 2.5 MG TABLET PO SCH (08:04)
[2024-09-15] MEDS: AMIODARONE 200 MG TAB PO SCH (08:05)
[2024-09-15] MEDS: ASPIRIN 81 MG PO SCH (08:05)
[2024-09-15] MEDS: METOPROLOL TARTRATE 25 MG TAB PO SCH (08:05)
[2024-09-15] MEDS ORDERED: ASPIRIN 325 MG TAB PO SCH (09:00)
--- NOTE | 2024-09-15 09:21 | P.PN ---
Subjective Progress Note Date: 09/15/24 Reason for Consult (text): Pulmonary edema History of present illness: This is an 84-year-old male patient of Dr. Martinez with past medical history of coronary artery disease status post PCI, paroxysmal atrial fibrillation on Eliquis, ventricular tachycardia, ischemic cardiomyopathy, hypertension, hyperlipidemia. Patient had a recent hospitalization in July of this year at which time he was treated for an acute inferior wall myocardial infarction. He did have an episode of tachycardia during his stay most consistent with SVT. He also suffered from significant confusion during the stay. According to the patient and family members at bedside, he has done very well at home until this morning. Patient could not breathe he was short of breath and clammy. He did have some palpitations this morning. No chest pain. He always has a cough. No fever or chills. No lower extremity edema. He has been placed on BiPAP and states he was feeling better with that treatment. Vagal movers applied without change in cardiac rhythm. Heart rate is running in the 120s. Blood pressure 128/65, heart rate 59, pulse ox 100% on 3 L. Patient has been started on IV Lasix 40 mg every 12 hours. Patient is seen today in the emergency center waiting for a bed on the cardiac stepdown unit. -EKG: Sinus tachycardia -Chest x-ray: New mild to moderate interstitial edema. Correlate for suspected fluid overload state. -Laboratory studies: WBC initially 14.3 now 10.7. Hemoglobin 13.1. Sodium 133, potassium 3.6, BUN 10 creatinine 0.86. proBNP 10,600. Troponin 0.056 and 0.163. Cepheid viral panel not detected. -Home cardiac medications: amiodarone 200 mg daily, Eliquis 2.5 mg twice daily, atorvastatin 80 mg daily, Farxiga 10 mg daily, Lopressor 25 mg twice daily, spironolactone 25 mg daily. -7-day event monitor performed 07/28 - 08/03/2024 revealed atrial fibrillation with 15% burden and episode of V. tach with symptoms of syncope. -Echocardiogram performed at [facility] on 07/24/2024 revealed EF of 25 to 30%. Moderate pulmonary hypertension with RVSP 47 mmHg. Mild mitral regurgitation and mild tricuspid regurgitation. - Cardiac catheterization performed 07/23/2024 revealed calcified coronary arteries and right brachial artery. Acutely occluded distal RCA. Moderate disease in the mid LAD. Patient underwent successful stenting of the distal RCA. There was also evidence of a lesion at the ostium of the PDA with BLAYNE III flow. Possibility of thrombotic occlusion in the distal segment of the PDA cannot be excluded. 09/15 Patient seen and examined on the cardiac stepdown unit. Patient states he is bringing up phlegm. No chest pain or chest pressure. He has been maintained on amiodarone drip and heparin drip. He is also on IV Lasix 40 mg every 12 hours. Blood pressure 162/66, heart rate 63, pulse ox 98% on 2 L nasal cannula. Repeat blood work reveals hemoglobin 12.3. Sodium 133, potassium 3.3. Creatinine 0.86. Repeat troponins were 0.328. Limited echocardiogram reveals EF of 35 to 40%, mild concentric LVH, no evidence of LV thrombus, RVSP 46 mmHg, moderate pulmonary hypertension, mild mitral regurgitation, mild tricuspid regurgitation. Moderate aortic regurgitation. Physical examination: Gen: This is an 84-year-old male in mild to moderate respiratory distress VS: reviewed HEENT: Head is atraumatic, normocephalic. Pupils equal, round. Sclerae is anicteric. NECK: Supple. No JVD. LUNGS: Bilateral crackles. Mild accessory muscle usage, mild intercostal retractions. HEART: Regular rate and rhythm. /6 systolic ejection murmur. ABDOMEN: Soft No tenderness. EXTREMITIES: No pedal edema. No calf tenderness. NEUROLOGICAL: Patient is awake, alert and oriented x3. Assessment: Acute on chronic systolic heart failure Acute hypoxic respiratory failure Tachycardia most likely SVT and previous episodes of SVT History of recent acute inferior lateral [place] status post PCI of the RCA Paroxysmal atrial fibrillation on Eliquis History of ventricular tachycardia Ischemic cardiomyopathy with EF of 25 to 30% with component of tachycardia induced cardiomyopathy, currently improved to 35 to 40% Hypertension Hyperlipidemia Moderate pulmonary hypertension Moderate aortic regurgitation Plan: Continue patient's home cardiac medications Discontinue IV amiodarone and discontinue heparin drip Resume Eliquis Continue patient on IV Lasix 40 mg every 12 hours Monitor EYAD, daily weights, electrolytes and renal function Further recommendations to follow based upon clinical course Nurse practitioner note has been reviewed, I agree with documented findings and plan of care. Patient was seen and examined. Objective - Vital Signs Vital signs: Vital Signs Temp 98.2 F 09/14/24 20:40 Pulse 50 L 09/15/24 03:30 Resp 18 09/15/24 03:30 BP 121/59 09/15/24 03:30 Pulse Ox 97 09/15/24 03:30 FiO2 40 09/14/24 07:41 Intake & Output 09/14/24 09/15/24 09/15/24 18:59 06:59 18:59 Intake Total 57.404 221.116 Output Total 900 Balance 57.404 -678.884 Weight 63.503 kg 64 kg Intake: Intake, IV Titration 57.404 221.116 Amount Amiodarone 450 mg In 221.116 Dextrose 5% in Water 250 ml @ 0.5 MG/MIN 16.667 mls/hr IV .Q15H [facility] Rx#: [id number] Heparin Sod,Pork in 0.45% 57.404 NaCl 25,000 unit In 0.45 % NaCl 1 250ml.bag @ 12 UNITS/KG/HR 7.62 mls/hr IV .Q24H [facility] Rx#: [id number] Output: Urine 900 Other: Voiding Method External Catheter - Labs CBC & Chem 7: 09/15/24 05:56 09/15/24 05:56 Labs: Abnormal Lab Results - Last 24 Hours (Table) 09/14/24 09/14/24 09/14/24 Range/Units 07:25 07:25 07:25 WBC 14.35 H (4.50-10.00) 10*3/uL MPV 8.9 L (9.5-12.2) fL Immature Gran # 0.05 H (0.00-0.04) 10*3/uL Lymphocytes # (Manual) 6.31 H (1.0-4.8) k/uL Monocytes # (0.20-1.00) 10*3/uL Eosinophils # (0.04-0.35) 10*3/uL Eosinophils # (Manual) 0.86 H (0-0.7) k/uL APTT (22.0-30.0) sec Sodium 133 L (137-145) mmol/L Glucose 151 H (74-99) mg/dL Troponin I 0.056 H* (0.000-0.034) ng/mL 06/05/25 06/05/25 06/05/25 Range/Units 09:46 10:25 17:29 WBC 10.72 H (4.50-10.00) 10*3/uL MPV (9.5-12.2) fL Immature Gran # 0.06 H (0.00-0.04) 10*3/uL Lymphocytes # (Manual) (1.0-4.8) k/uL Monocytes # 1.40 H (0.20-1.00) 10*3/uL Eosinophils # 0.03 L (0.04-0.35) 10*3/uL Eosinophils # (Manual) (0-0.7) k/uL APTT (22.0-30.0) sec Sodium (137-145) mmol/L Glucose (74-99) mg/dL Troponin I 0.163 H* 0.328 H* (0.000-0.034) ng/mL 09/14/24 09/15/24 Range/Units 17:29 00:29 WBC (4.50-10.00) 10*3/uL MPV (9.5-12.2) fL Immature Gran # (0.00-0.04) 10*3/uL Lymphocytes # (Manual) (1.0-4.8) k/uL Monocytes # (0.20-1.00) 10*3/uL Eosinophils # (0.04-0.35) 10*3/uL Eosinophils # (Manual) (0-0.7) k/uL APTT 38.5 H 40.3 H (22.0-30.0) sec Sodium (137-145) mmol/L Glucose (74-99) mg/dL Troponin I (0.000-0.034) ng/mL
[2024-09-15 10:34] VITALS: BMI 23.4
[2024-09-15] MEDS: POTASSIUM CHLORIDE ER 20 MEQ TAB.ER PO STA (11:25)
--- NOTE | 2024-09-15 11:57 | P.PN ---
Subjective Progress Note Date: 09/15/24 patient is a 84-year-old gentleman past medical history significant for coronary artery disease status post PCI of RCA in July of this year, ischemic cardiomyopathy with EF of 20 to 30%, A-fib, hypertension presented the ER because of shortness of breath. Patient stated he was all right this morning when he woke up with shortness of breath, shortness of breath was sudden in onset, was present on rest as well exertion. Patient was having a hard time walking and could not even talk because of being short of breath. There was complaint of occasional chest pressure. There is no complaint of swelling of feet. There was no complaint of orthopnea or PND. Patient denies any palpitation. Denies any nausea, vomiting abdominal pain. Patient denies any complaint of dizziness. There is no complaint of headache. Because of the symptoms, patient came to the ER Initial lab work done in the ER showed WBC 14.35, hemoglobin 13.1, platelet count 272, sodium 133, potassium 3.6, BUN 10, creatinine 0.86, glucose 151, lactate 2, calcium 8.8, magnesium 1.8, total bilirubin 1.1 troponin 0.056, proBNP 51925 Influenza A not detected Influenza B not detected RSV not detected COVID-19 not detected EKG done in the ER showed heart rate of 123, no ST segment elevation or depression seen, biphasic T waves in V5 V6 Chest x-ray done in the ER showed mild to moderate interstitial edema, fluid overload state Patient admitted to internal medicine service 09/15. Patient seen examined. Labs done showing WBC 25, hemoglobin 12.3, sodium 133, potassium 3.3, BUN 13, creatinine 0.86. Currently on 2 L of oxygen. Breathing is improved denies any chest pain REVIEW OF SYSTEMS: CONSTITUTIONAL: No fever, no malaise,. CARDIOVASCULAR: No chest pain, no palpitations, no syncope. PULMONARY: Mentioned above GASTROINTESTINAL: No diarrhea, no nausea, no vomiting, no abdominal pain. NEUROLOGICAL: No headaches, no weakness, PHYSICAL EXAMINATION: GENERAL: The patient is alert and oriented x3, not in any acute distress. Ill looking HEENT: Pupils are round and equally reacting to light. EOMI. No scleral icterus. No conjunctival pallor. Normocephalic, atraumatic. No pharyngeal erythema. No thyromegaly. CARDIOVASCULAR: S1 and S2 present. No murmurs, rubs, or gallops. PULMONARY: Diminished breath sounds at bases, no wheezing or crackles. ABDOMEN: Soft, nontender, nondistended, normoactive bowel sounds. No palpable organomegaly. MUSCULOSKELETAL: No joint swelling or deformity. EXTREMITIES: No cyanosis, clubbing, or pedal edema. NEUROLOGICAL: Gross neurological examination did not reveal any focal deficits. SKIN: No rashes. Assessment and plan Acute hypoxemic respiratory failure Elevated troponin Acute on chronic systolic CHF History of acute inferolateral myocardial infarction s/p PCI RCA on 07/23/2024 Persistent Afib History of hypertension History of ischemic cardiomyopathy with EF 25-30% with component of tachycardia induced cardiomyopathy. SVT Episode of nonsustained ventricular tachycardia Monitor vital signs Monitor CBC Monitor CMP Continue telemetry monitoring Continue oxygen supplementation Continue use of BiPAP as needed Trend troponin Strict I's and O's Daily weights Fluids restriction of 1800 mL Low salt diet Continue IV Lasix 40 every 12 Currently on Amiodarone drip, continue Eliquis Continue breathing treatments conitnue Mucinex Resume home meds Consult pulmonary Consult cardiology Labs and medication were reviewed.. Continue same treatment. Continue with s ymptomatic treatment. Resume home medication. Monitor labs and vitals. DVT and GI prophylaxis. Further recommendations as per clinical course of the patient Dictation was produced using [employer] dictation software. please excuse any grammatical, word or spelling errors. Objective - Vital Signs Vital signs: Vital Signs Temp 97.8 F 09/15/24 08:03 Pulse 63 09/15/24 08:03 Resp 19 09/15/24 08:03 BP 162/66 09/15/24 08:03 Pulse Ox 98 09/15/24 08:03 FiO2 40 09/14/24 07:41 Intake & Output 09/14/24 09/15/24 09/15/24 18:59 06:59 18:59 Intake Total 57.404 221.116 256 Output Total 900 650 Balance 57.404 -678.884 -394 Weight 63.503 kg 64 kg Intake: Intake, IV Titration 57.404 221.116 Amount Amiodarone 450 mg In 221.116 Dextrose 5% in Water 250 ml @ 0.5 MG/MIN 16.667 mls/hr IV .Q15H [facility] Rx#: [id number] Heparin Sod,Pork in 0.45% 57.404 NaCl 25,000 unit In 0.45 % NaCl 1 250ml.bag @ 12 UNITS/KG/HR 7.62 mls/hr IV .Q24H [facility] Rx#: [id number] Oral 256 Output: Urine 900 650 Other: Voiding Method External Catheter # Voids 1 - Labs CBC & Chem 7: 09/15/24 05:56 09/15/24 05:56 Labs: Abnormal Lab Results - Last 24 Hours (Table) 09/14/24 09/14/24 09/14/24 Range/Units 09:46 10:25 17:29 WBC 10.72 H (4.50-10.00) 10*3/uL RBC (4.40-5.60) 10*6/uL Hgb (13.0-17.0) g/dL Hct (39.6-50.0) % Immature Gran # 0.06 H (0.00-0.04) 10*3/uL Monocytes # 1.40 H (0.20-1.00) 10*3/uL Eosinophils # 0.03 L (0.04-0.35) 10*3/uL APTT (22.0-30.0) sec Sodium (137-145) mmol/L Potassium (3.5-5.1) mmol/L Chloride (98-107) mmol/L Troponin I 0.163 H* 0.328 H* (0.000-0.034) ng/mL 09/14/24 09/15/24 09/15/24 Range/Units 17:29 00:29 05:56 WBC (4.50-10.00) 10*3/uL RBC (4.40-5.60) 10*6/uL Hgb (13.0-17.0) g/dL Hct (39.6-50.0) % Immature Gran # (0.00-0.04) 10*3/uL Monocytes # (0.20-1.00) 10*3/uL Eosinophils # (0.04-0.35) 10*3/uL APTT 38.5 H 40.3 H (22.0-30.0) sec Sodium 133 L (137-145) mmol/L Potassium 3.3 L (3.5-5.1) mmol/L Chloride 96 L (98-107) mmol/L Troponin I (0.000-0.034) ng/mL 09/15/24 09/15/24 Range/Units 05:56 05:56 WBC (4.50-10.00) 10*3/uL RBC 4.27 L (4.40-5.60) 10*6/uL Hgb 12.3 L (13.0-17.0) g/dL Hct 38.1 L (39.6-50.0) % Immature Gran # (0.00-0.04) 10*3/uL Monocytes # 1.12 H (0.20-1.00) 10*3/uL Eosinophils # (0.04-0.35) 10*3/uL APTT 40.5 H (22.0-30.0) sec Sodium (137-145) mmol/L Potassium (3.5-5.1) mmol/L Chloride (98-107) mmol/L Troponin I (0.000-0.034) ng/mL
--- NOTE | 2024-09-15 19:15 | P.PN ---
Subjective Progress Note Date: 09/15/24 This is a 84-year-old male patient was seen in the Emergency Department. The patient is known to have coronary artery disease and the patient underwent a recent coronary intervention and stenting of the RCA. He is also known to have paroxysmal atrial fibrillation and ischemic cardiomyopathy with impaired ejection fraction of 25% and previous history of ventricular tachycardia as noted on previous hospitalization. The patient was in the hospital back in July 2024 and at that time he was treated for an acute inferior wall myocardial infarction and during his last hospitalization he also encountered an episode of tachycardia/V. tach/SVT. In any rate, the patient was stabilized and the patient was discharged home and he acutely became short of breath and presented to the hospital because of worsening shortness of breath and was found to be in acute pulmonary edema. Initially, he was started on BiPAP therapy at a pressure of 12 or 5 cm of water in the emergency department. At the time of my arrival, the patient was already given Lasix with excellent urine output and the patient was already feeling better and he was transition to nasal cannula 3 L/min. He was able to communicate. He is hard of hearing. Family was at the bedside. Denied having any chest pain. No significant edema lower extremities. He has been compliant to his medications. Denies drinking excessive amount of fluids Blood work showed a proBNP level of 10,600, troponin was 0.05 and 0.1 respectively x 2. The viral screen was negative. The white cell count was at 14.3 with a hemoglobin of 13.1. Platelet count was at 272. Normal coagulation profile. Normal electrolytes. Normal liver function test. EKG was also noted and the patient has a sinus tachycardia with subsequently improved. Q waves over the anterior leads suggestive of an old anteroseptal myocardial infarction. In terms of his cardiac workup, the patient underwent a cardiac catheterization on 07/23/2024 that showed calcified coronary arteries and the patient had acutely occluded distal RCA and moderate disease involving the mid LAD and the patient underwent successful stenting of the distal RCA and the patient had evidence of a lesion at the ostium of the PDA. Echocardiogram from 07/24/2024 showed an ejection fraction of 25 to 30% with moderate degree of pulm hypertension with a PA pressure of 47. The patient was taking a combination of Lopressor 25 mg twice a day, Farxiga 10 mg p.o. daily, amiodarone 200 mg p.o. daily, Aldactone 25 mg p.o. daily and Eliquis 2 0.5 mg on outpatient basis. ````````````````````````````````````````````````` On 09/15/2024, the patient is being seen for a follow-up. The patient is calm and comfortable the patient remains off the BiPAP and the patient is currently on 2 L of oxygen by nasal cannula with pulse ox of 96%. No significant respiratory distress. Remains on IV Lasix the patient continues to produce excellent urine output. Fluid balance -1.5 L over the past 24 hours. The white cell count is 7.2 with a hemoglobin 12.3 and a platelet count of 236. Sodium is at 133, potassium is at 3.3, BUN 13 with a creatinine of 0.8. The patient was taken off the IV heparin and the patient was started on anticoagulation with Eliquis. Aldactone was also added. Remains on metoprolol 50 mg p.o. twice daily and 25 mg p.o. twice daily and the patient is also on Farxiga and Lipitor in addition to combination of aspirin and Plavix. The patient remains on amiodarone 200 mg p.o. twice a day. Meanwhile, a limited echocardiogram was done and the patient was found to have impaired LV function with an ejection fraction of 35 to 40%. Mild concentric LVH. Moderate LV ejection fraction impairment. No evidence of any cardiac thrombus. Moderate degree of pulm hypertension with a PA pressure of 46. Mild mitral regurgitation. Moderate aortic regurgitation. Objective - Vital Signs Vital signs: Vital Signs Temp 97.8 F 09/15/24 08:03 Pulse 63 09/15/24 08:03 Resp 19 09/15/24 08:03 BP 162/66 09/15/24 08:03 Pulse Ox 98 09/15/24 08:03 FiO2 40 09/14/24 07:41 Intake & Output 09/14/24 09/15/24 09/15/24 18:59 06:59 18:59 Intake Total 57.404 221.116 256 Output Total 900 650 Balance 57.404 -678.884 -394 Weight 63.503 kg 64 kg 64 kg Intake: Intake, IV Titration 57.404 221.116 Amount Amiodarone 450 mg In 221.116 Dextrose 5% in Water 250 ml @ 0.5 MG/MIN 16.667 mls/hr IV .Q15H [facility] Rx#: [id number] Heparin Sod,Pork in 0.45% 57.404 NaCl 25,000 unit In 0.45 % NaCl 1 250ml.bag @ 12 UNITS/KG/HR 7.62 mls/hr IV .Q24H [facility] Rx#: [id number] Oral 256 Output: Urine 900 650 Other: Voiding Method External Catheter External Catheter # Voids 1 - Exam The patient appeared well nourished and normally developed. Vital signs as documented. The patient was taken off the BiPAP and the patient is currently on 3 Suboxone by nasal cannula Head exam is unremarkable. No scleral icterus or corneal arcus noted. Neck is with jugular venous distension, thyromegaly, or carotid bruits. Carotid upstrokes are brisk bilaterally. Lungs are clear to auscultation a showing crackles in lung base bilaterally. Cardiac exam reveals the PMI to be normally sized and situated. Rhythm is regular. First and second heart sounds normal. No murmurs, rubs or gallops. Abdominal exam reveals normal bowel sounds, no masses, no organomegaly and no aortic enlargement. Extremities are nonedematous and both femoral and pedal pulses are normal. Examination of the skin revealed no evidence of significant rashes, suspicious appearing nevi or other concerning lesions. Neurologically, the patient is awake and alert and the patient does not have any focal neurological deficit. Cranial nerves are essentially intact. - Labs CBC & Chem 7: 09/15/24 05:56 09/15/24 05:56 Labs: Abnormal Lab Results - Last 24 Hours (Table) 09/14/24 09/14/24 09/14/24 Range/Units 09:46 10:25 17:29 WBC 10.72 H (4.50-10.00) 10*3/uL RBC (4.40-5.60) 10*6/uL Hgb (13.0-17.0) g/dL Hct (39.6-50.0) % Immature Gran # 0.06 H (0.00-0.04) 10*3/uL Monocytes # 1.40 H (0.20-1.00) 10*3/uL Eosinophils # 0.03 L (0.04-0.35) 10*3/uL APTT (22.0-30.0) sec Sodium (137-145) mmol/L Potassium (3.5-5.1) mmol/L Chloride (98-107) mmol/L Troponin I 0.163 H* 0.328 H* (0.000-0.034) ng/mL 09/14/24 09/15/24 09/15/24 Range/Units 17:29 00:29 05:56 WBC (4.50-10.00) 10*3/uL RBC (4.40-5.60) 10*6/uL Hgb (13.0-17.0) g/dL Hct (39.6-50.0) % Immature Gran # (0.00-0.04) 10*3/uL Monocytes # (0.20-1.00) 10*3/uL Eosinophils # (0.04-0.35) 10*3/uL APTT 38.5 H 40.3 H (22.0-30.0) sec Sodium 133 L (137-145) mmol/L Potassium 3.3 L (3.5-5.1) mmol/L Chloride 96 L (98-107) mmol/L Troponin I (0.000-0.034) ng/mL 09/15/24 09/15/24 Range/Units 05:56 05:56 WBC (4.50-10.00) 10*3/uL RBC 4.27 L (4.40-5.60) 10*6/uL Hgb 12.3 L (13.0-17.0) g/dL Hct 38.1 L (39.6-50.0) % Immature Gran # (0.00-0.04) 10*3/uL Monocytes # 1.12 H (0.20-1.00) 10*3/uL Eosinophils # (0.04-0.35) 10*3/uL APTT 40.5 H (22.0-30.0) sec Sodium (137-145) mmol/L Potassium (3.5-5.1) mmol/L Chloride (98-107) mmol/L Troponin I (0.000-0.034) ng/mL Assessment and Plan Plan: Acute pulmonary edema secondary to decompensated CHF with secondary shortness of breath and acute hypoxic respiratory failure, improved and the patient is breathing comfortably at this point Acute hypoxic respiratory failure initially treated with BiPAP and currently on 2 L of O2 nasal cannula Systolic heart failure with an ejection fraction of 25 to 30% based on echoc ardiogram that was done on 07/24/2024. Repeat echocardiogram showed an ejection fraction of 35% along with mild MR, moderate aortic regurgitation. The patient also has moderate degree of pulmonary hypertension. Coronary artery disease and the patient is post inferior wall myocardial infarction. The patient has undergone a recent hospitalization with a cardiac catheterization done on 07/23/2024 revealing calcified coronaries, occluded RCA, moderate disease involving the mid LAD and the patient is post successful stenting of the distal RCA and the patient also has an evidence of a lesion at the ostium of the PDA. Paroxysmal atrial fibrillation, current rhythm is sinus Previous history of ventricular tachycardia, maintained on amiodarone on outpatient basis Hypertension Hyperlipidemia Plan Keep the patient on oxygen at 2 L/min nasal cannula Discontinue the amiodarone drip and put the patient on oral amiodarone 200 mg p.o. twice daily Continue IV Lasix 40 mg every 12 hours and monitor urine output and renal function Metoprolol 50 mg twice daily and 25 mg p.o. twice daily Continue Aldactone Continue Farxiga Continue aspirin and Plavix Continue anticoagulation with Eliquis and discontinued IV heparin We will continue to follow. Time with Patient: Greater than 30
[2024-09-16 09:22] LABS: African American GFR (CKD) 77 (>60 ml/min/1.73 sqM); Anion Gap 10 mmol/L; Blood Urea Nitrogen 16 mg/dL (9-20); Carbon Dioxide 31 mmol/L (22-30); Chloride 93 mmol/L (98-107); Glucose 111 mg/dL (74-99); Non-African American GFR(CKD) 66 (>60 ml/min/1.73 sqM); Potassium 3.9 mmol/L (3.5-5.1); Sodium 134 mmol/L (137-145)
[2024-09-16] MEDS: FUROSEMIDE 40 MG TAB PO SCH (09:28)
--- NOTE | 2024-09-16 11:51 | P.PN ---
Subjective Progress Note Date: 09/16/24 This is a 84-year-old male patient was seen in the Emergency Department. The patient is known to have coronary artery disease and the patient underwent a recent coronary intervention and stenting of the RCA. He is also known to have paroxysmal atrial fibrillation and ischemic cardiomyopathy with impaired ejection fraction of 25% and previous history of ventricular tachycardia as noted on previous hospitalization. The patient was in the hospital back in July 2024 and at that time he was treated for an acute inferior wall myocardial infarction and during his last hospitalization he also encountered an episode of tachycardia/V. tach/SVT. In any rate, the patient was stabilized and the patient was discharged home and he acutely became short of breath and presented to the hospital because of worsening shortness of breath and was found to be in acute pulmonary edema. Initially, he was started on BiPAP therapy at a pressure of 12 or 5 cm of water in the emergency department. At the time of my arrival, the patient was already given Lasix with excellent urine output and the patient was already feeling better and he was transition to nasal cannula 3 L/min. He was able to communicate. He is hard of hearing. Family was at the bedside. Denied having any chest pain. No significant edema lower extremities. He has been compliant to his medications. Denies drinking excessive amount of fluids Blood work showed a proBNP level of 10,600, troponin was 0.05 and 0.1 respectively x 2. The viral screen was negative. The white cell count was at 14.3 with a hemoglobin of 13.1. Platelet count was at 272. Normal coagulation profile. Normal electrolytes. Normal liver function test. EKG was also noted and the patient has a sinus tachycardia with subsequently improved. Q waves over the anterior leads suggestive of an old anteroseptal myocardial infarction. In terms of his cardiac workup, the patient underwent a cardiac catheterization on 07/23/2024 that showed calcified coronary arteries and the patient had acutely occluded distal RCA and moderate disease involving the mid LAD and the patient underwent successful stenting of the distal RCA and the patient had evidence of a lesion at the ostium of the PDA. Echocardiogram from 07/24/2024 showed an ejection fraction of 25 to 30% with moderate degree of pulm hypertension with a PA pressure of 47. The patient was taking a combination of Lopressor 25 mg twice a day, Farxiga 10 mg p.o. daily, amiodarone 200 mg p.o. daily, Aldactone 25 mg p.o. daily and Eliquis 2 0.5 mg on outpatient basis. ````````````````````````````````````````````````` On 09/15/2024, the patient is being seen for a follow-up. The patient is calm and comfortable the patient remains off the BiPAP and the patient is currently on 2 L of oxygen by nasal cannula with pulse ox of 96%. No significant respiratory distress. Remains on IV Lasix the patient continues to produce excellent urine output. Fluid balance -1.5 L over the past 24 hours. The white cell count is 7.2 with a hemoglobin 12.3 and a platelet count of 236. Sodium is at 133, potassium is at 3.3, BUN 13 with a creatinine of 0.8. The patient was taken off the IV heparin and the patient was started on anticoagulation with Eliquis. Aldactone was also added. Remains on metoprolol 50 mg p.o. twice daily and 25 mg p.o. twice daily and the patient is also on Farxiga and Lipitor in addition to combination of aspirin and Plavix. The patient remains on amiodarone 200 mg p.o. twice a day. Meanwhile, a limited echocardiogram was done and the patient was found to have impaired LV function with an ejection fraction of 35 to 40%. Mild concentric LVH. Moderate LV ejection fraction impairment. No evidence of any cardiac thrombus. Moderate degree of pulm hypertension with a PA pressure of 46. Mild mitral regurgitation. Moderate aortic regurgitation. On 09/16/2024, the patient is feeling greatly nonspecific complaints. The patient has been placed on room air oxygen with a pulse ox of 97%. No chest pain. No cough or sputum production. No wheezing. Remains on aspirin and Plavix. Remains on anticoagulation with Eliquis 2.5 mg p.o. twice a day. Remains on amiodarone 200 mg p.o. twice a day and the patient is also on metoprolol 25 mg p.o. twice daily. The patient was also started on Aldactone. Lasix will be switched to oral. The WBC count is at 7.2 with a hemoglobin of 12.3. BUN 16 with a creatinine of 1. Serum bicarb is at 31 and the patient has been negative fluid balance. He is not utilizing BiPAP at this point. Objective - Vital Signs Vital signs: Vital Signs Temp 98.7 F 09/15/24 20:00 Pulse 57 L 09/16/24 08:06 Resp 16 09/16/24 08:06 BP 133/71 09/16/24 08:06 Pulse Ox 97 09/16/24 08:06 FiO2 40 09/14/24 07:41 Intake & Output 09/15/24 09/16/24 09/16/24 18:59 06:59 18:59 Intake Total 374 0 Output Total 1900 1400 Balance -1526 -1400 0 Weight 64 kg 64.2 kg Intake: Oral 374 0 Output: Urine 1900 1400 Other: Voiding Method External Catheter External Catheter # Voids 1 2 1 - Exam The patient appeared well nourished and normally developed. Vital signs as documented. The patient is currently on room air oxygen Head exam is unremarkable. No scleral icterus or corneal arcus noted. Neck is with jugular venous distension, thyromegaly, or carotid bruits. Carotid upstrokes are brisk bilaterally. Lungs are clear to auscultation a showing crackles in lung base bilaterally. Cardiac exam reveals the PMI to be normally sized and situated. Rhythm is regul ar. First and second heart sounds normal. No murmurs, rubs or gallops. Abdominal exam reveals normal bowel sounds, no masses, no organomegaly and no aortic enlargement. Extremities are nonedematous and both femoral and pedal pulses are normal. Examination of the skin revealed no evidence of significant rashes, suspicious appearing nevi or other concerning lesions. Neurologically, the patient is awake and alert and the patient does not have any focal neurological deficit. Cranial nerves are essentially intact. - Labs CBC & Chem 7: 09/15/24 05:56 09/16/24 07:24 Assessment and Plan Plan: Acute pulmonary edema secondary to decompensated CHF with secondary shortness of breath and acute hypoxic respiratory failure, improved and the patient is breathing comfortably at this point, essentially recovered Acute hypoxic respiratory failure initially treated with BiPAP and currently on room air oxygen Systolic heart failure with an ejection fraction of 25 to 30% based on echocardiogram that was done on 07/24/2024. Repeat echocardiogram showed an ejection fraction of 35% along with mild MR, moderate aortic regurgitation. The patient also has moderate degree of pulmonary hypertension. Coronary artery disease and the patient is post inferior wall myocardial infarction. The patient has undergone a recent hospitalization with a cardiac catheterization done on 07/23/2024 revealing calcified coronaries, occluded RCA, moderate disease involving the mid LAD and the patient is post successful stenting of the distal RCA and the patient also has an evidence of a lesion at the ostium of the PDA. Paroxysmal atrial fibrillation, current rhythm is sinus Previous history of ventricular tachycardia, maintained on amiodarone on outpatient basis Hypertension Hyperlipidemia Plan Keep the patient on room air oxygen Continue oral amiodarone 200 mg p.o. twice daily Continue Lasix 40 mg p.o. twice a day Metoprolol 50 mg twice daily and 25 mg p.o. twice daily Continue Aldactone 25 mg p.o. daily Continue Farxiga Continue aspirin and Plavix Continue anticoagulation with Eliquis , the patient is currently on 2.5 mg twice a day We will continue to follow. Time with Patient: Greater than 30
[2024-09-16 16:50] VITALS: RESP 18
--- NOTE | 2024-09-16 17:15 | P.PN ---
Subjective Progress Note Date: 09/16/24 84-year-old gentleman past medical history significant for coronary artery disease status post PCI of RCA in July of this year, ischemic cardiomyopathy with EF of 20 to 30%, A-fib, hypertension presented the ER because of shortness of breath. Patient stated he was all right this morning when he woke up with shortness of breath, shortness of breath was sudden in onset, was present on rest as well exertion. Patient was having a hard time walking and could not even talk because of being short of breath. There was complaint of occasional chest pressure. There is no complaint of swelling of feet. There was no complaint of orthopnea or PND. Patient denies any palpitation. Denies any nausea, vomiting abdominal pain. Patient denies any complaint of dizziness. There is no complaint of headache. Because of the symptoms, patient came to the ER Initial lab work done in the ER showed WBC 14.35, hemoglobin 13.1, platelet count 272, sodium 133, potassium 3.6, BUN 10, creatinine 0.86, glucose 151, lactate 2, calcium 8.8, magnesium 1.8, total bilirubin 1.1 troponin 0.056, proBNP 93272 Influenza A not detected Influenza B not detected RSV not detected COVID-19 not detected EKG done in the ER showed heart rate of 123, no ST segment elevation or depression seen, biphasic T waves in V5 V6 Chest x-ray done in the ER showed mild to moderate interstitial edema, fluid overload state Patient admitted to internal medicine service Objective - Vital Signs Vital signs: Vital Signs Temp 98.7 F 09/15/24 20:00 Pulse 57 L 09/16/24 08:06 Resp 16 09/16/24 08:06 BP 133/71 09/16/24 08:06 Pulse Ox 97 09/16/24 08:06 FiO2 40 09/14/24 07:41 Intake & Output 09/15/24 09/16/24 09/16/24 18:59 06:59 18:59 Intake Total 374 0 Output Total 1900 1400 Balance -1526 -1400 0 Weight 64 kg 64.2 kg Intake: Oral 374 0 Output: Urine 1900 1400 Other: Voiding Method External Catheter External Catheter External Catheter # Voids 1 2 1 - Exam GENERAL: The patient is alert and oriented x3, not in any acute distress. Ill looking HEENT: Pupils are round and equally reacting to light. EOMI. No scleral icterus. No conjunctival pallor. Normocephalic, atraumatic. No pharyngeal erythema. No thyromegaly. CARDIOVASCULAR: S1 and S2 present. No murmurs, rubs, or gallops. PULMONARY: Diminished breath sounds at bases, no wheezing or crackles. ABDOMEN: Soft, nontender, nondistended, normoactive bowel sounds. No palpable organomegaly. MUSCULOSKELETAL: No joint swelling or deformity. EXTREMITIES: No cyanosis, clubbing, or pedal edema. NEUROLOGICAL: Gross neurological examination did not reveal any focal deficits. SKIN: No rashes. - Labs CBC & Chem 7: 09/15/24 05:56 09/16/24 07:24 Labs: Abnormal Lab Results - Last 24 Hours (Table) 09/16/24 Range/Units 07:24 Sodium 134 L (137-145) mmol/L Chloride 93 L (98-107) mmol/L Carbon Dioxide 31 H (22-30) mmol/L Glucose 111 H (74-99) mg/dL Assessment and Plan Assessment: Acute hypoxemic respiratory failure Elevated troponin Acute on chronic systolic CHF History of acute inferolateral myocardial infarction s/p PCI RCA on 07/23/2024 Persistent Afib History of hypertension History of ischemic cardiomyopathy with EF 25-30% with component of tachycardia induced cardiomyopathy. SVT Episode of nonsustained ventricular tachycardia Monitor vital signs Monitor CBC Monitor CMP Continue telemetry monitoring Continue oxygen supplementation Continue use of BiPAP as needed Trend troponin Strict I's and O's Daily weights Fluids restriction of 1800 mL Low salt diet Continue IV Lasix 40 every 12 Currently on Amiodarone drip, continue Eliquis Continue breathing treatments conitnue Mucinex Resume home meds Consult pulmonary Consult cardiology Labs and medication were reviewed.. Continue same treatment. Continue with symptomatic treatment. Resume home medication. Monitor labs and vitals. DVT and GI prophylaxis. Further recommendations as per clinical course of the patient
--- NOTE | 2024-09-16 19:02 | P.PN ---
Subjective Progress Note Date: 09/16/24 This is an 84-year-old male patient of Dr. Martinez with past medical history of coronary artery disease status post PCI, paroxysmal atrial fibrillation on Eliquis, ventricular tachycardia, ischemic cardiomyopathy, hypertension, hyperlipidemia. Patient had a recent hospitalization in July of this year at which time he was treated for an acute inferior wall myocardial infarction. He did have an episode of tachycardia during his stay most consistent with SVT. He also suffered from significant confusion during the stay. According to the patient and family members at bedside, he has done very well at home until this morning. Patient could not breathe he was short of breath and clammy. He did have some palpitations this morning. No chest pain. He always has a cough. No fever or chills. No lower extremity edema. He has been placed on BiPAP and states he was feeling better with that treatment. Vagal movers applied without change in cardiac rhythm. Heart rate is running in the 120s. Blood pressure 128/65, heart rate 59, pulse ox 100% on 3 L. Patient has been started on IV Lasix 40 mg every 12 hours. Patient is seen today in the emergency center waiting for a bed on the cardiac stepdown unit. -EKG: Sinus tachycardia -Chest x-ray: New mild to moderate interstitial edema. Correlate for suspected fluid overload state. -Laboratory studies: WBC initially 14.3 now 10.7. Hemoglobin 13.1. Sodium 133, potassium 3.6, BUN 10 creatinine 0.86. proBNP 10,600. Troponin 0.056 and 0.16 3. Cepheid viral panel not detected. -Home cardiac medications: amiodarone 200 mg daily, Eliquis 2.5 mg twice daily, atorvastatin 80 mg daily, Farxiga 10 mg daily, Lopressor 25 mg twice daily, spironolactone 25 mg daily. -7-day event monitor performed 07/28 - 08/03/2024 revealed atrial fibrillation w ith 15% burden and episode of V. tach with symptoms of syncope. -Echocardiogram performed at [facility] on 07/24/2024 revealed EF of 25 to 30%. Moderate pulmonary hypertension with RVSP 47 mmHg. Mild mitral regurgitation and mild tricuspid regurgitation. - Cardiac catheterization performed 07/23/2024 revealed calcified coronary arteries and right brachial artery. Acutely occluded distal RCA. Moderate disease in the mid LAD. Patient underwent successful stenting of the distal RCA. There was also evidence of a lesion at the ostium of the PDA with BLAYNE III flow. Possibility of thrombotic occlusion in the distal segment of the PDA cannot be excluded. 09/15 Patient seen and examined on the cardiac stepdown unit. Patient states he is bringing up phlegm. No chest pain or chest pressure. He has been maintained on amiodarone drip and heparin drip. He is also on IV Lasix 40 mg every 12 hours. Blood pressure 162/66, heart rate 63, pulse ox 98% on 2 L nasal cannula. Repeat blood work reveals hemoglobin 12.3. Sodium 133, potassium 3.3. Creatinine 0.86. Repeat troponins were 0.328. Limited echocardiogram reveals EF of 35 to 40%, mild concentric LVH, no evidence of LV thrombus, RVSP 46 mmHg, moderate pulmonary hypertension, mild mitral regurgitation, mild tricuspid regurgitation. Moderate aortic regurgitation. 09/16/2024 Seen and examined at bedside this a.m. blood pressure is borderline elevated. His QTc is prolonged. He is not on any QTc prolonging medications other than amiodarone. He was placed on amiodarone in 08/04 due to ventricular tachycardia during admission for STEMI. Physical examination: Gen: This is an 84-year-old male in mild to moderate respiratory distress VS: reviewed HEENT: Head is atraumatic, normocephalic. Pupils equal, round. Sclerae is a nicteric. NECK: Supple. No JVD. LUNGS: Bilateral crackles. Mild accessory muscle usage, mild intercostal retractions. HEART: Regular rate and rhythm. 2/6 systolic ejection murmur. ABDOMEN: Soft No tenderness. EXTREMITIES: No pedal edema. No calf tenderness. NEUROLOGICAL: Patient is awake, alert and oriented x3. Assessment: Acute on chronic systolic heart failure Acute hypoxic respiratory failure Tachycardia most likely SVT and previous episodes of SVT History of recent acute inferior lateral [place] status post PCI of the RCA Paroxysmal atrial fibrillation on Eliquis History of ventricular tachycardia Ischemic cardiomyopathy with EF of 25 to 30% with component of tachycardia induced cardiomyopathy, currently improved to 35 to 40% Hypertension Hyperlipidemia Moderate pulmonary hypertension Moderate aortic regurgitation Plan: Discontinue amiodarone because of prolongation of QTc. Repeat ECG tomorrow a.m. Continue current medications, agree with oral diuretics Discontinue aspirin, continue Plavix and Eliquis. Reevaluate dose of Eliquis on outpatient basis Consider Lexiscan nuclear stress test because of recent NSTEMI on outpatient basis Increase losartan to 25 because of elevated BP. On outpatient basis consider transitioning to Entresto Chest x-ray tomorrow a.m. Anticipate discharge tomorrow a.m. if chest x-ray tomorrow is within normal limits. Objective - Vital Signs Vital signs: Vital Signs Temp 98.0 F 09/16/24 16:49 Pulse 63 09/16/24 16:49 Resp 18 09/16/24 16:49 BP 163/72 09/16/24 16:49 Pulse Ox 99 09/16/24 16:49 FiO2 40 09/14/24 07:41 Intake & Output 09/16/24 09/16/24 09/17/24 06:59 18:59 06:59 Intake Total 240 Output Total 1400 150 Balance -1400 90 Weight 64.2 kg Intake: Oral 240 Output: Urine 1400 150 Other: Voiding Method External Catheter External Catheter # Voids 2 1 - Labs CBC & Chem 7: 09/15/24 05:56 09/16/24 07:24 Labs: Abnormal Lab Results - Last 24 Hours (Table) 09/16/24 Range/Units 07:24 Sodium 134 L (137-145) mmol/L Chloride 93 L (98-107) mmol/L Carbon Dioxide 31 H (22-30) mmol/L Glucose 111 H (74-99) mg/dL
[2024-09-16] MEDS: LOSARTAN 25 MG TAB PO STA (23:13)
[2024-09-17 07:24] VITALS: BP 168/74; PULSE 65; TEMP 98.3
[2024-09-17] MEDS: SACUBITRIL/VALSARTAN 24 MG-26 MG TABLET PO SCH (07:57)
[2024-09-17 08:01] LABS: Basophils # (A) 0.09 10*3/uL (0.00-0.10); Basophils % (A) 1.1 %; Eosinophils # (A) 0.14 10*3/uL (0.04-0.35); Eosinophils % (A) 1.7 %; HCT 40.3 % (39.6-50.0); HGB 13.2 g/dL (13.0-17.0); Lymphocytes # (A) 3.54 10*3/uL (0.90-5.00); Lymphocytes % (A) 43.7 %; MCHC 32.8 g/dL (32.0-37.0); MCV 88.6 fL (80.0-97.0); Mean Platelet Volume 9.3 fL (9.5-12.2); Monocytes # (A) 1.39 10*3/uL (0.20-1.00); Monocytes % (A) 17.2 %; Neutrophils % (A) 35.8 %; Platelet Count 288 10*3/uL (140-440); RBC 4.55 10*6/uL (4.40-5.60); RDW 14.6 % (11.5-14.5)
[2024-09-17 08:21] LABS: African American GFR (CKD) 76 (>60 ml/min/1.73 sqM); Anion Gap 11 mmol/L; Blood Urea Nitrogen 17 mg/dL (9-20); Calcium 9.1 mg/dL (8.4-10.2); Carbon Dioxide 30 mmol/L (22-30); Chloride 92 mmol/L (98-107); Glucose 99 mg/dL (74-99); Non-African American GFR(CKD) 66 (>60 ml/min/1.73 sqM); Potassium 3.6 mmol/L (3.5-5.1); Sodium 133 mmol/L (137-145)
[2024-09-17] MEDS ORDERED: SACUBITRIL/VALSARTAN 24 MG-26 MG TABLET PO SCH (09:00)
[2024-09-17] MEDS ORDERED: LOSARTAN 25 MG TAB PO SCH (09:00)
--- NOTE | 2024-09-17 10:06 | P.PN ---
Subjective Progress Note Date: 09/17/24 This is an 84-year-old male patient of Dr. Martinze with past medical history of coronary artery disease status post PCI, paroxysmal atrial fibrillation on Eliquis, ventricular tachycardia, ischemic cardiomyopathy, hypertension, hyperlipidemia. Patient had a recent hospitalization in July of this year at which time he was treated for an acute inferior wall myocardial infarction. He did have an episode of tachycardia during his stay most consistent with SVT. He also suffered from significant confusion during the stay. According to the patient and family members at bedside, he has done very well at home until this morning. Patient could not breathe he was short of breath and clammy. He did have some palpitations this morning. No chest pain. He always has a cough. No fever or chills. No lower extremity edema. He has been placed on BiPAP and states he was feeling better with that treatment. Vagal movers applied without change in cardiac rhythm. Heart rate is running in the 120s. Blood pressure 128/65, heart rate 59, pulse ox 100% on 3 L. Patient has been started on IV Lasix 40 mg every 12 hours. Patient is seen today in the emergency center waiting for a bed on the cardiac stepdown unit. -EKG: Sinus tachycardia -Chest x-ray: New mild to moderate interstitial edema. Correlate for suspected fluid overload state. -Laboratory studies: WBC initially 14.3 now 10.7. Hemoglobin 13.1. Sodium 133, potassium 3.6, BUN 10 creatinine 0.86. proBNP 10,600. Troponin 0.056 and 0.16 3. Cepheid viral panel not detected. -Home cardiac medications: amiodarone 200 mg daily, Eliquis 2.5 mg twice daily, atorvastatin 80 mg daily, Farxiga 10 mg daily, Lopressor 25 mg twice daily, spironolactone 25 mg daily. -7-day event monitor performed 07/28 - 08/03/2024 revealed atrial fibrillation w ith 15% burden and episode of V. tach with symptoms of syncope. -Echocardiogram performed at [facility] on 07/24/2024 revealed EF of 25 to 30%. Moderate pulmonary hypertension with RVSP 47 mmHg. Mild mitral regurgitation and mild tricuspid regurgitation. - Cardiac catheterization performed 07/23/2024 revealed calcified coronary arteries and right brachial artery. Acutely occluded distal RCA. Moderate disease in the mid LAD. Patient underwent successful stenting of the distal RCA. There was also evidence of a lesion at the ostium of the PDA with BLAYNE III flow. Possibility of thrombotic occlusion in the distal segment of the PDA cannot be excluded. 09/15 Patient seen and examined on the cardiac stepdown unit. Patient states he is bringing up phlegm. No chest pain or chest pressure. He has been maintained on amiodarone drip and heparin drip. He is also on IV Lasix 40 mg every 12 hours. Blood pressure 162/66, heart rate 63, pulse ox 98% on 2 L nasal cannula. Repeat blood work reveals hemoglobin 12.3. Sodium 133, potassium 3.3. Creatinine 0.86. Repeat troponins were 0.328. Limited echocardiogram reveals EF of 35 to 40%, mild concentric LVH, no evidence of LV thrombus, RVSP 46 mmHg, moderate pulmonary hypertension, mild mitral regurgitation, mild tricuspid regurgitation. Moderate aortic regurgitation. 09/16/2024 Seen and examined at bedside this a.m. blood pressure is borderline elevated. His QTc is prolonged. He is not on any QTc prolonging medications other than amiodarone. He was placed on amiodarone in 08/04 due to ventricular tachycardia during admission for STEMI. 09/17/2024 Repeat EKG shows slightly improved QTc but still prolonged. There is also T wave inversions, which is slightly improved when compared to old EKG from yesterday Blood pressure is still elevated. Will discontinue losartan and start start Entresto. Chest x-ray shows significant improvement since admission. Appears volume optimized at this time. No new cardiovascular complaints Physical examination: Gen: This is an 84-year-old male in mild to moderate respiratory distress VS: reviewed HEENT: Head is atraumatic, normocephalic. Pupils equal, round. Sclerae is anicteric. NECK: Supple. No JVD. LUNGS: Bilateral crackles. Mild accessory muscle usage, mild intercostal retractions. HEART: Regular rate and rhythm. 2/6 systolic ejection murmur. ABDOMEN: Soft No tenderness. EXTREMITIES: No pedal edema. No calf tenderness. NEUROLOGICAL: Patient is awake, alert and oriented x3. Assessment: Acute HFrEF exacerbation, Acute hypoxic respiratory failure due to above Tachycardia most likely SVT and previous episodes of SVT History of recent acute inferior lateral [place] status post PCI of the RCA 07/2024 Paroxysmal atrial fibrillation on Eliquis History of ventricular tachycardia Ischemic cardiomyopathy with EF of 25 to 30% with component of tachycardia induced cardiomyopathy, currently improved to 35% Hypertension Hyperlipidemia Moderate pulmonary hypertension Moderate aortic regurgitation Plan: Discontinue amiodarone because of prolongation of QTc. Reevaluate the need for amiodarone outpatient basis after repeating EKG Lasix 40 minutes twice daily, Farxiga, Aldactone, Entresto, metoprolol 25 twice daily. Verquvo 2.5 mg on discharge Follow-up outpatient Dr. Martinez within 7-10 days Objective - Vital Signs Vital signs: Vital Signs Temp 98.3 F 09/17/24 07:23 Pulse 65 09/17/24 07:23 Resp 18 09/17/24 07:23 BP 168/74 09/17/24 07:23 Pulse Ox 98 09/17/24 07:23 FiO2 40 09/14/24 07:41 Intake & Output 09/16/24 09/17/24 09/17/24 18:59 06:59 18:59 Intake Total 240 500 Output Total 150 Balance 90 500 Weight 57.8 kg Intake: IV 20 Invasive Line 1 10 Invasive Line 2 10 Oral 240 480 Output: Urine 150 Other: Voiding Method External Catheter External Catheter Toilet Urinal # Voids 1 4 - Labs CBC & Chem 7: 09/17/24 07:12 09/17/24 07:12 Labs: Abnormal Lab Results - Last 24 Hours (Table) 09/17/24 09/17/24 Range/Units 07:12 07:12 MPV 9.3 L (9.5-12.2) fL Monocytes # 1.39 H (0.20-1.00) 10*3/uL Sodium 133 L (137-145) mmol/L Chloride 92 L (98-107) mmol/L
--- NOTE | 2024-09-17 11:33 | XR ---
EXAMINATION TYPE: XR chest 1V portable DATE OF EXAM: 09/17/2024 5:37 AM COMPARISON: 09/14/2024 CLINICAL INDICATION: Male, 84 years old with history of pulm edema, TECHNIQUE: XR chest 1V portable view(s) obtained. FINDINGS: The heart size is normal. The pulmonary vasculature is somewhat prominent. The lungs are clear. IMPRESSION: 1. Correlate for volume overload. This is slightly improved over the interval [facility], , 09/17/2024 11:30 AM
--- NOTE | 2024-09-17 13:51 | P.PN ---
Subjective Progress Note Date: 09/17/24 This is a 84-year-old male patient was seen in the Emergency Department. The patient is known to have coronary artery disease and the patient underwent a recent coronary intervention and stenting of the RCA. He is also known to have paroxysmal atrial fibrillation and ischemic cardiomyopathy with impaired ejection fraction of 25% and previous history of ventricular tachycardia as noted on previous hospitalization. The patient was in the hospital back in July 2024 and at that time he was treated for an acute inferior wall myocardial infarction and during his last hospitalization he also encountered an episode of tachycardia/V. tach/SVT. In any rate, the patient was stabilized and the patient was discharged home and he acutely became short of breath and presented to the hospital because of worsening shortness of breath and was found to be in acute pulmonary edema. Initially, he was started on BiPAP therapy at a pressure of 12 or 5 cm of water in the emergency department. At the time of my arrival, the patient was already given Lasix with excellent urine output and the patient was already feeling better and he was transition to nasal cannula 3 L/min. He was able to communicate. He is hard of hearing. Family was at the bedside. Denied having any chest pain. No significant edema lower extremities. He has been compliant to his medications. Denies drinking excessive amount of fluids Blood work showed a proBNP level of 10,600, troponin was 0.05 and 0.1 respectively x 2. The viral screen was negative. The white cell count was at 14.3 with a hemoglobin of 13.1. Platelet count was at 272. Normal coagulation profile. Normal electrolytes. Normal liver function test. EKG was also noted and the patient has a sinus tachycardia with subsequently improved. Q waves over the anterior leads suggestive of an old anteroseptal myocardial infarction. In terms of his cardiac workup, the patient underwent a cardiac catheterization on 07/23/2024 that showed calcified coronary arteries and the patient had acutely occluded distal RCA and moderate disease involving the mid LAD and the patient underwent successful stenting of the distal RCA and the patient had evidence of a lesion at the ostium of the PDA. Echocardiogram from 07/24/2024 showed an ejection fraction of 25 to 30% with moderate degree of pulm hypertension with a PA pressure of 47. The patient was taking a combination of Lopressor 25 mg twice a day, Farxiga 10 mg p.o. daily, amiodarone 200 mg p.o. daily, Aldactone 25 mg p.o. daily and Eliquis 2 0.5 mg on outpatient basis. ````````````````````````````````````````````````` On 09/15/2024, the patient is being seen for a follow-up. The patient is calm and comfortable the patient remains off the BiPAP and the patient is currently on 2 L of oxygen by nasal cannula with pulse ox of 96%. No significant respiratory distress. Remains on IV Lasix the patient continues to produce excellent urine output. Fluid balance -1.5 L over the past 24 hours. The white cell count is 7.2 with a hemoglobin 12.3 and a platelet count of 236. Sodium is at 133, potassium is at 3.3, BUN 13 with a creatinine of 0.8. The patient was taken off the IV heparin and the patient was started on anticoagulation with Eliquis. Aldactone was also added. Remains on metoprolol 50 mg p.o. twice daily and 25 mg p.o. twice daily and the patient is also on Farxiga and Lipitor in addition to combination of aspirin and Plavix. The patient remains on amiodarone 200 mg p.o. twice a day. Meanwhile, a limited echocardiogram was done and the patient was found to have impaired LV function with an ejection fraction of 35 to 40%. Mild concentric LVH. Moderate LV ejection fraction impairment. No evidence of any cardiac thrombus. Moderate degree of pulm hypertension with a PA pressure of 46. Mild mitral regurgitation. Moderate aortic regurgitation. On 09/16/2024, the patient is feeling greatly nonspecific complaints. The patient has been placed on room air oxygen with a pulse ox of 97%. No chest pain. No cough or sputum production. No wheezing. Remains on aspirin and Plavix. Remains on anticoagulation with Eliquis 2.5 mg p.o. twice a day. Remains on amiodarone 200 mg p.o. twice a day and the patient is also on metoprolol 25 mg p.o. twice daily. The patient was also started on Aldactone. Lasix will be switched to oral. The WBC count is at 7.2 with a hemoglobin of 12.3. BUN 16 with a creatinine of 1. Serum bicarb is at 31 and the patient has been negative fluid balance. He is not utilizing BiPAP at this point. On 09/17/2024, the patient is being seen for a follow-up. The patient is doing well on room air oxygen. The patient denies having any specific complaints. No chest pain. No significant shortness of breath. The patient was taken off the losartan and the patient was started on Entresto. Chest x-ray shows significant improvement in the volume status and the findings of CHF compared to his time of admission. The patient is also on Aldactone 25 mg p.o. daily, metoprolol 25 mg p.o. twice a day and Farxiga 10 mg p.o. daily. He remains on anticoagulation with Eliquis. The white cell count is 8.1 with a hemoglobin of 13.2 and a platelet count of 288. BUN 17 with a creatinine of 1.05 and a sodium levels of 133. No other significant events overnight. Objective - Vital Signs Vital signs: Vital Signs Temp 98.3 F 09/17/24 07:23 Pulse 65 09/17/24 07:23 Resp 18 09/17/24 07:23 BP 168/74 09/17/24 07:23 Pulse Ox 98 09/17/24 07:23 FiO2 40 09/14/24 07:41 Intake & Output 09/16/24 09/17/24 09/17/24 18:59 06:59 18:59 Intake Total 240 500 Output Total 150 Balance 90 500 Weight 57.8 kg Intake: IV 20 Invasive Line 1 10 Invasive Line 2 10 Oral 240 480 Output: Urine 150 Other: Voiding Method External Catheter External Catheter Toilet Urinal # Voids 1 4 - Exam The patient appeared well nourished and normally developed. Vital signs as documented. The patient is currently on room air oxygen Head exam is unremarkable. No scleral icterus or corneal arcus noted. Neck is with jugular venous distension, thyromegaly, or carotid bruits. Carotid upstrokes are brisk bilaterally. Lungs are clear to auscultation a showing crackles in lung base bilaterally. Cardiac exam reveals the PMI to be normally sized and situated. Rhythm is regular. First and second heart sounds normal. No murmurs, rubs or gallops. Abdominal exam reveals normal bowel sounds, no masses, no organomegaly and no aortic enlargement. Extremities are nonedematous and both femoral and pedal pulses are normal. Examination of the skin revealed no evidence of significant rashes, suspicious appearing nevi or other concerning lesions. Neurologically, the patient is awake and alert and the patient does not have any focal neurological deficit. Cranial nerves are essentially intact. - Labs CBC & Chem 7: 09/17/24 07:12 09/17/24 07:12 Labs: Abnormal Lab Results - Last 24 Hours (Table) 09/17/24 09/17/24 Range/Units 07:12 07:12 MPV 9.3 L (9.5-12.2) fL Monocytes # 1.39 H (0.20-1.00) 10*3/uL Sodium 133 L (137-145) mmol/L Chloride 92 L (98-107) mmol/L Assessment and Plan Plan: Acute pulmonary edema secondary to decompensated CHF with secondary shortness of breath and acute hypoxic respiratory failure, improved and the patient is breathing comfortably at this point, essentially recovered Acute hypoxic respiratory failure initially treated with BiPAP and currently on room air oxygen Systolic heart failure with an ejection fraction of 25 to 30% based on echocardiogram that was done on 07/24/2024. Repeat echocardiogram showed an ejection fraction of 35% along with mild MR, moderate aortic regurgitation. The patient also has moderate degree of pulmonary hypertension. Coronary artery disease and the patient is post inferior wall myocardial infarction. The patient has undergone a recent hospitalization with a cardiac catheterization done on 07/23/2024 revealing calcified coronaries, occluded RCA, moderate disease involving the mid LAD and the patient is post successful stenting of the distal RCA and the patient also has an evidence of a lesion at the ostium of the PDA. Paroxysmal atrial fibrillation, current rhythm is sinus Previous history of ventricular tachycardia, maintained on amiodarone on outpatient basis Hypertension Hyperlipidemia Plan Keep the patient on room air oxygen Patient was started on [id number]/261 tablet a day. Continue metoprolol 25 mg p.o. twice a day Aldactone 25 mg p.o. daily Farxiga 10 mg p.o. daily Continue aspirin and Plavix Continue Lasix 40 mg p.o. twice a day Possible discharge today.
--- NOTE | 2024-09-20 15:31 | CDI ---
Documentation Clarification Form Date: 09/20/2024 03:05:21 PM From: Lanette Grace RN, CCDS Email: [email or web address] Admit Date: 09/14/2024 09:29:00 AM Patient Name: Epi Lloyd Visit Number: [id number] Discharge Date: 09/17/2024 12:04:00 PM ATTENTION: The Clinical Documentation Specialists (CDI) and [facility] Coding Staff appreciate your assistance in clarifying documentation. Please respond to the clarification below the line at the bottom and electronically sign. The CDI & [facility] Coding staff will review the response and follow-up if needed. Please note: Queries are made part of the Legal Health Record. If you have any questions, please contact the author of this message via ITS. Doctor Teto Aponte The patient had a rise in troponin levels. Please clarify if there is an additional diagnosis and/or clinical significance related to this value. Patient history/risk factors: HLD, HTN, OA, prostate disorder, ischemic cardiomyopathy and recent OR about a month ago. Presented with SOB, and mild palpitations. Clinical indicators: 09/14 Troponins: 0.056-0.163-0.328 09/14 BNP 55949 09/14 Echo: LVEF 35 to 40%, Mild concentric LVH, moderately reduced global LV systolic function 09/14 HR: [id number] 09/14 H&P: "EKG done in the ER showed heart rate of 123, no ST segment elevation or depression seen, biphasic T waves in V5 V6. Acute hypoxemic respiratory failure. Elevated troponin. Acute on chronic systolic CHF. History of acute inferolateral myocardial infarction s/p PCI RCA on 07/23/2024." Cardiology consult: "Tachycardia most likely SVT and previous episodes of SVT. History of recent acute inferior lateral OR status post PCI of the RCA. Paroxysmal atrial fibrillation on Eliquis. Obtain repeat troponins." Treatment: Amiodarone drip titrated 09/14-09/16; Amiodarone 200mg po BID 09/15-09/16; Eliquis 2.5mg po 09/15-09/17; ASA 325mg po x1 on 09/14; ASA 81mg po daily 09/15-09/16; IV Lasix 40mg x1 on 09/11; IV Lasix 40mg Q12H 09/14-09/16; Lasix 40mg po 09/16-09/17; Heparin drip titrated 09/14-09/15; Metoprolol 50mg po 09/14-09/15; Metoprolol 25mg po 09/15-09/17; Trend troponin levels Is there an additional diagnosis and/or clinical significance related to the above lab result/information: [ ] NSTEMI type 1 [ x ] Type 2 OR due to CHF exacerbation and [ ] Non-ischemic with acute myocardial injury [ ] No additional diagnosis/Not clinically significant [ ] Other, please specify [ ] Unable to determine MTDD
== END 2024-09-17 12:04 | disposition home or self-care (01) | DRG 280 ==
LOC: EC 07:29 → 3SCARD 09:29
PROVIDERS: ADMIT Internal Medicine; ATTEND Internal Medicine
PROC: 5A09357 Assistance with Respiratory Ventilation, Less than 24 Consecutive Hours, Continuous Positive Airway Pressure (ICD-10-PCS; principal; 2024-09-14)
DX: I11.0 Hypertensive heart disease with heart failure (principal); I50.23 Acute on chronic systolic (congestive) heart failure; I21.A1 Myocardial infarction type 2; J96.01 Acute respiratory failure with hypoxia; I27.20 Pulmonary hypertension, unspecified; I48.19 Other persistent atrial fibrillation; I47.10 Supraventricular tachycardia, unspecified; Z79.01 Long term (current) use of anticoagulants; E78.5 Hyperlipidemia, unspecified; I25.5 Ischemic cardiomyopathy; I25.10 Atherosclerotic heart disease of native coronary artery without angina pectoris; Z79.899 Other long term (current) drug therapy; Z87.891 Personal history of nicotine dependence; Z98.61 Coronary angioplasty status; I25.2 Old myocardial infarction; Z79.82 Long term (current) use of aspirin; Z79.02 Long term (current) use of antithrombotics/antiplatelets; Z85.46 Personal history of malignant neoplasm of prostate; Z85.828 Personal history of other malignant neoplasm of skin
CPT/HCPCS: 36415; 71045; 80048; 80053; 83605; 83735; 83880; 84484; 85025; 85610; 85730; 87636; 93005; 93308; 94640; 94660; 94760; 96365; 96366; 96368; 96375; 99291

== ENCOUNTER 2024-10-12 18:38 | Emergency (ER) | payer MEDICARE, BC ==
[2024-10-12 18:48] VITALS: TEMP 97.9
[2024-10-12 19:14] LABS: Basophils # (A) 0.05 10*3/uL (0.00-0.10); Basophils % (A) 0.7 %; Eosinophils # (A) 0.18 10*3/uL (0.04-0.35); Eosinophils % (A) 2.6 %; HCT 36.8 % (39.6-50.0); HGB 12.5 g/dL (13.0-17.0); Lymphocytes # (A) 2.54 10*3/uL (0.90-5.00); Lymphocytes % (A) 36.5 %; MCH 28.9 pg (27.0-32.0); MCHC 34.0 g/dL (32.0-37.0); MCV 85.2 fL (80.0-97.0); Monocytes # (A) 1.03 10*3/uL (0.20-1.00); Monocytes % (A) 14.8 %; Neutrophils # (A) 3.10 10*3/uL (1.80-7.70); Neutrophils % (A) 44.7 %; Platelet Count 208 10*3/uL (140-440); RBC 4.32 10*6/uL (4.40-5.60); RDW 14.1 % (11.5-14.5); WBC 6.95 10*3/uL (4.50-10.00)
[2024-10-12 19:26] LABS: ALT 30 U/L (4-49); AST 34 U/L (17-59); African American GFR (CKD) 72 (>60 ml/min/1.73 sqM); Albumin 3.9 g/dL (3.5-5.0); Alkaline Phosphatase 75 U/L (38-126); Anion Gap 12 mmol/L; Blood Urea Nitrogen 23 mg/dL (9-20); Calcium 8.8 mg/dL (8.4-10.2); Carbon Dioxide 23 mmol/L (22-30); Chloride 97 mmol/L (98-107); Glucose 125 mg/dL (74-99); Non-African American GFR(CKD) 63 (>60 ml/min/1.73 sqM); Potassium 2.8 mmol/L (3.5-5.1); Sodium 132 mmol/L (137-145); Total Protein 6.5 g/dL (6.3-8.2)
--- NOTE | 2024-10-12 19:40 | XR ---
EXAMINATION TYPE: XR chest 1V portable DATE OF EXAM: 10/12/2024 7:33 PM COMPARISON: Multiple radiographs, with the most recent on 09/17/2024 TECHNIQUE: XR chest 1V portable Portable AP radiograph of the chest. CLINICAL INDICATION:Male, 84 years old with history of fall; pain FINDINGS: Patient is rotated which limits evaluation. Lungs/Pleura: There is no evidence of pleural effusion, focal consolidation, or pneumothorax. Pulmonary vascularity: Unremarkable. Heart/mediastinum: Cardiomediastinal silhouette is unremarkable. Musculoskeletal: No acute osseous pathology. Remote healed left-sided sixth and seventh lateral rib f ractures. IMPRESSION: No acute cardiopulmonary disease/process. [facility], , 10/12/2024 7:38 PM
--- NOTE | 2024-10-12 19:41 | XR ---
EXAMINATION TYPE: XR pelvis AP view DATE OF EXAM: 10/12/2024 7:33 PM INDICATION: Patient age:Male; 84 years old; Reason for study: fall; PHH. pain COMPARISON: None TECHNIQUE: The pelvis was examined in a single projection. FINDINGS: There is no evidence of fracture or dislocation. There is no soft tissue abnormality. Mult ilevel degenerative changes of the lower spine. Brachytherapy seeds within the prostate gland. Calcif ication of the bilateral vas deferens suggested. Vascular calcifications noted. IMPRESSION: No acute osseous pathology. [facility], , 10/12/2024 7:39 PM
--- NOTE | 2024-10-12 19:42 | XR ---
EXAMINATION TYPE: XR elbow complete LT DATE OF EXAM: 10/12/2024 7:33 PM INDICATION: Patient age:Male; 84 years old; Reason for study: fall; PHH. pain COMPARISON: None TECHNIQUE: The left elbow was examined in AP, lateral, and oblique projections. FINDINGS: No evidence of any acute osseous pathology, joint dislocation, or soft tissue swelling is n oted. No evidence of joint effusion is present. IMPRESSION: No evidence of acute fracture. [facility], , 10/12/2024 7:40 PM
--- NOTE | 2024-10-12 20:11 | CT ---
EXAMINATION TYPE: CT brain cspine wo con CT DLP: 1416 mGycm, Automated exposure control for dose reduction was used. DATE OF EXAM: 10/12/2024 7:52 PM COMPARISON: None.. CLINICAL INDICATION:Male, 84 years old with history of fall; Fall, pain TECHNIQUE: Brain: Multiple axial CT images of the brain were obtained without IV contrast. Cspine: Axial CT images from the skull base to the inferior aspect of T2 we obtained without intraven ous contrast. Coronal and sagittal reformatted images were also reviewed. FINDINGS: Brain: Extra-axial spaces: No abnormal extra-axial fluid collections. Ventricular system: Within normal limits Cerebral parenchyma: Cerebral atrophy. No acute intraparenchymal hemorrhage or mass effect. The day -white junction is well differentiated. Scattered hypoattenuating areas are seen within the periventr icular white matter. Cerebellum: Unremarkable. Mass effect: No evidence of midline shift. Intracranial vasculature: Atherosclerotic calcifications of the intracranial vessels. Soft tissues: Normal. Calvarium/osseous structures: No depressed skull fracture. Paranasal sinuses and mastoid air cells: Clear. Visualized orbits: Bilateral aphakia Cervical spine: Fracture: None. Osseous structures: Diffuse bone demineralization. Multilevel degenerative disc disease changes with endplate spurring and disc osteophyte complex's. Vertebral alignment: Likely degenerative grade 1 retrolisthesis of C3 on C4. Spinal canal/Neural Foramina: Disc osteophyte complexes at C3-C4, C4-C5, C6-C7 with at least mild spi nal canal stenosis. Facet joint uncovertebral joint arthropathy scattered throughout the cervical spi ne with varying degrees of neural foraminal stenosis. Neck soft tissues: Prevertebral soft tissues are within normal limits. Other: The airway is patent. The lung apices are clear. Moderate to severe bilateral carotid bifurcat ion as described calcifications. IMPRESSION: 1. No acute intracranial process. 2. Nonspecific white matter changes, likely secondary to chronic small vessel ischemic disease. 3. No evidence of cervical spine fracture. 4. Moderate multilevel degenerative disc disease. [facility], , 10/12/2024 8:08 PM
--- NOTE | 2024-10-12 20:19 | CT ---
EXAMINATION TYPE: CT chest wo con CT DLP: 268.3 mGycm, Automated exposure control for dose reduction was used. DATE OF EXAM: 10/12/2024 7:52 PM COMPARISON: Chest radiograph from same day. CLINICAL INDICATION:Male, 84 years old with history of fall, rib pain; PHH, Fall, rib pain TECHNIQUE: Multiple axial images were obtained through the chest without IV contrast. Lack of IV or o ral contrast limits evaluation of solid and hollow organ viscera. . Coronal and sagittal reformats re viewed. FINDINGS: LUNGS/ PLEURA: No pleural effusion, pneumothorax, focal consolidation. Minimal dependent bilateral lo wer lobe subsegmental atelectasis. No suspicious pulmonary nodule or mass. AIRWAY: Patent and unremarkable.. HEART: Size within normal limits.Small aortic valvular calcifications. Small mitral annulus calcifica tions.. Small pericardial effusion. Moderate coronary artery calcifications present. Most pronounced within the LAD. MEDIASTINUM: No gross evidence of adenopathy. VASCULATURE: No aortic aneurysm. Mild atherosclerotic calcification of the aorta and its branches. B oth aortic arch. Mild to moderate atherosclerotic calcification within the bilateral subclavian and a xillary arteries. MUSCULOSKELETAL: Acute posterior mild displaced left ninth, 10th, and 11th rib fractures. No segmenta l fractures. Adjacent subcutaneous tissue contusion. Remote healed left lateral sixth and seventh rib fractures. Right teres major intramuscular lipoma measuring 6.1 x 2.3 cm. SOFT TISSUES/LYMPH NODES: Unremarkable. LOWER NECK: No significant findings. UPPER ABDOMEN: Circumferential wall thickening in the distal esophagus. IMPRESSION: 1. Acute mildly displaced posterior left ninth through 11th rib fractures with adjacent soft tissue c ontusion. No evidence for pleural effusion or pneumothorax. 2. Circumferential wall thickening of the distal esophagus. Correlate for GERD. [facility], , 10/12/2024 8:17 PM
[2024-10-12 20:49] VITALS: RESP 18
[2024-10-12] MEDS: ACETAMINOPHEN TAB 500 MG TAB PO STA (21:17)
[2024-10-12] MEDS: LIDOCAINE 4% PATCH TOPICAL ONE (21:18)
[2024-10-12] MEDS: POTASSIUM CHLORIDE ER 20 MEQ TAB.ER PO STA (21:18)
--- NOTE | 2024-10-12 21:26 | ED ---
Fall HPI - General Chief Complaint: Fall Stated Complaint: Fall Time Seen by Provider: 10/12/24 18:40 Source: patient, EMS Mode of arrival: EMS - History of Present Illness Initial Comments: 84-year-old male with past medical Struve coronary artery disease, hypertension who presents emergency department after a fall. Patient accidentally tripped over his own pant legs and fell. He denies hitting his head. States that he landed on his left side and has immense pain in his left posterior/lateral ribs. He does take blood thinners. Denies shortness of breath. Does have tenderness to palpation of the area where there is a hematoma. Patient also has skin tear to the left elbow. He denies any pain in his extremities and moves them all equally. No visual disturbance. No nausea or vomiting. No other alleviating, precipitating or modifying factors - Related Data Home Medications Medication Instructions Recorded Confirmed Ergocalciferol (Vitamin D2) 1,250 mcg PO Q14D 07/23/24 09/14/24 [Drisdol (50,000 Iu)] Tamsulosin [Flomax] 0.4 mg PO HS 07/23/24 09/14/24 Ubidecarenone [Q-Sorb Co Q-10] 200 mg PO DAILY 07/23/24 09/14/24 Vit C/E/Zn/Coppr/Lutein/Zeaxan 1 cap PO DAILY 07/23/24 09/14/24 [Preservision Areds 2 Softgel] Dapagliflozin Propanediol [Farxiga] 10 mg PO DAILY 09/14/24 09/14/24 Metoprolol Tartrate [Lopressor] 25 mg PO BID 09/14/24 09/14/24 Previous Rx's Medication Instructions Recorded Apixaban [Eliquis] 2.5 mg PO BID #60 tab 08/02/24 Atorvastatin [Lipitor] 80 mg PO HS #90 tab 08/02/24 Clopidogrel [Plavix] 75 mg PO DAILY #30 tab 08/02/24 Spironolactone [Aldactone] 25 mg PO DAILY #30 tab 08/02/24 Furosemide [Lasix] 40 mg PO BID@0900,1600 30 Days #60 09/17/24 tab Sacubitril/Valsartan [Entresto 24 2 each PO BID 15 Days #60 tab 06/08/25 mg-26 mg Tablet] Vericiguat [Verquvo] 2.5 mg PO DAILY 90 Days #90 tablet 09/17/24 Lidocaine 4% Patch 1 patch TOPICAL DAILY #30 patch 10/12/24 Allergies Allergy/AdvReac Type Severity Reaction Status Date / Time No Known Allergies Allergy Verified 10/12/24 18:51 Review of Systems ROS Statement: Those systems with pertinent positive or pertinent negative responses have been documented in the HPI. ROS Other: All systems not noted in ROS Statement are negative. Past Medical History Past Medical History: Coronary Artery Disease (CAD), Heart Failure, Hyperlipidemia, Hypertension, Osteoarthritis (OA), Prostate Disorder Additional Past Medical History / Comment(s): skin cancer, wet mac degeneration with bilateral injections. Previous cataracts, prostate CA with radiation and seeds approx 20 years ago. History of Any Multi-Drug Resistant Organisms: None Reported Past Surgical History: Heart Catheterization With Stent Past Anesthesia/Blood Transfusion Reactions: No Reported Reaction Date of Last Stent Placement:: 07-23-24 Smoking Status: Former smoker Past Alcohol Use History: Daily Past Drug Use History: None Reported General Exam Limitations: no limitations General appearance: alert, in no apparent distress Head exam: Present: atraumatic, normocephalic, normal inspection Eye exam: Present: normal appearance, PERRL, EOMI. Absent: scleral icterus, conjunctival injection, periorbital swelling ENT exam: Present: normal exam, mucous membranes moist Neck exam: Present: normal inspection. Absent: tenderness, meningismus, lymphadenopathy Respiratory exam: Present: normal lung sounds bilaterally, chest wall tenderness (Patient has ecchymosis to the left posterior ribs measuring 8 x 5 cm.). Absent: respiratory distress, wheezes, rales, rhonchi, stridor Cardiovascular Exam: Present: regular rate, normal rhythm, normal heart sounds. Absent: systolic murmur, diastolic murmur, rubs, gallop, clicks GI/Abdominal exam: Present: soft, normal bowel sounds. Absent: distended, tenderness, guarding, rebound, rigid Extremities exam: Present: normal inspection, full ROM, normal capillary refill. Absent: tenderness, pedal edema, joint swelling, calf tenderness Back exam: Present: normal inspection Neurological exam: Present: alert, oriented X3, CN II-XII intact Psychiatric exam: Present: normal affect, normal mood Skin exam: Present: warm, dry, intact, normal color. Absent: rash Course Vital Signs 10/12/24 10/12/24 10/12/24 18:39 20:49 21:40 Temperature 97.9 F Pulse Rate 69 65 62 Respiratory 14 18 18 Rate Blood Pressure 162/60 129/61 134/62 O2 Sat by Pulse 100 98 98 Oximetry Medical Decision Making - Medical Decision Making Was pt. sent in by a medical professional or institution (, PA, BENZENE WORKER, urgent care, hospital, or [facility]...) When possible be specific @ -No Did you speak to anyone other than the patient for history (EMS, parent, family, police, friend...)? What history was obtained from this source @ -Spoke with for history Did you review nursing and triage notes (agree or disagree)? Why? @ -I reviewed and agree with nursing and triage notes Were old charts reviewed (outside hosp., previous admission, EMS record, old EKG, old radiological studies, urgent care reports/EKG's, [facility] records)? Report findings @ -No old charts were reviewed Differential Diagnosis (chest pain, altered mental status, abdominal pain women, abdominal pain men, vaginal bleeding, weakness, fever, dyspnea, syncope, headache, dizziness, GI bleed, back pain, seizure, CVA, palpatations, mental health, musculoskeletal)? @ -Differential Musculoskeletal Muscular strain, contusion, ligament sprain, fracture, arthritis, septic arthritis, bursitis, cellulitis, muscle spasm, nerve compression, DVT, arterial occlusion, herpes zoster, electrolyte abnormality, tumor.... This is not meant to be in all inclusive list EKG interpreted by me (3pts min.). @ -Not done X-rays interpreted by me (1pt min.). @ -Yes which demonstrates no acute injuries CT interpreted by me (1pt min.). @ -Yes which demonstrates no acute injuries U/S interpreted by me (1pt. min.). @ -None done What testing was considered but not performed or refused? (CT, X-rays, U/S, labs)? Why? @ -None What meds were considered but not given or refused? Why? @ -Pain meds were considered however patient refused x 3 Did you discuss the management of the patient with other professionals (professionals i.e. , GIOVANNI, BENZENE WORKER, lab, RT, psych nurse, older adult social work specialist, fire alarm repairer, teacher, giving officer, patient case coordinator)? Give summary @ -No Was smoking cessation discussed for >3mins.? @ -No Was critical care preformed (if so, how long)? @ -No Were there social determinants of health that impacted care today? How? (Homelessness, low income, unemployed, alcoholism, drug addiction, transportation, low edu. Level, literacy, decrease access to med. care, senior living, rehab)? @ -No Was there de-escalation of care discussed even if they declined (Discuss DNR or withdrawal of care, Hospice)? DNR status @ -No What co-morbidities impacted this encounter? (DM, HTN, Smoking, COPD, CAD, Cancer, CVA, ARF, Chemo, Hep., AIDS, mental health diagnosis, sleep apnea, mo rbid obesity)? @ -None Was patient admitted / discharged? Hospital course, mention meds given and r oute, prescriptions, significant lab abnormalities, going to OR and other pertinent info. @ -Upon arrival patient seen and evaluated in room 2. Thorough history and physical exam was performed. He denies hitting his head. He is sent for CT of his head and cervical spine as a precautionary measure. Chest and pelvic x-ray performed followed by a chest CT which demonstrates 3 mildly displaced rib fractures. I did discuss this with the patient and he adamantly wants to go home. I did apply a lidocaine patch to the site and sent a prescription for lidocaine to the pharmacy. He is also given a dose of Tylenol. Patient is able to get up and ambulate. He is sent home with an incentive spirometer. Patient must follow-up with his primary care doctor in 2 to 4 days and return for any new or worsening symptoms. Patient agreeable and he was discharged in stable condition Undiagnosed new problem with uncertain prognosis? @ -No Drug Therapy requiring intensive monitoring for toxicity (Heparin, Nitro, Insulin, Cardizem)? @ -No Were any procedures done? @ -No Diagnosis/symptom? @ -Acute fall, left chest wall trauma, left sided rib fractures, left elbow skin tear Acute, or Chronic, or Acute on Chronic? @ -Acute Uncomplicated (without systemic symptoms) or Complicated (systemic symptoms)? @ -Complicated Side effects of treatment? @ -No Exacerbation, Progression, or Severe Exacerbation? @ -No Poses a threat to life or bodily function? How? (Chest pain, USA, [place], pneumonia, PE, COPD, DKA, ARF, appy, cholecystitis, CVA, Diverticulitis, Homicidal, Suicidal, threat to staff... and all critical care pts) @ -No - Lab Data Result diagrams: 10/12/24 19:03 10/12/24 19:03 Lab Results 10/12/24 10/12/24 Range/Units 19:03 19:03 WBC 6.95 (4.50-10.00) 10*3/uL RBC 4.32 L (4.40-5.60) 10*6/uL Hgb 12.5 L (13.0-17.0) g/dL Hct 36.8 L (39.6-50.0) % MCV 85.2 (80.0-97.0) fL MCH 28.9 (27.0-32.0) pg MCHC 34.0 (32.0-37.0) g/dL Plt Count 208 (140-440) 10*3/uL MPV 9.2 L (9.5-12.2) fL Immature Gran % (Auto) 0.7 % Neutrophils % 44.7 % Lymphocytes % 36.5 % Monocytes % 14.8 % Eosinophils % 2.6 % Basophils % 0.7 % Immature Gran # 0.05 H (0.00-0.04) 10*3/uL Neutrophils # 3.10 (1.80-7.70) 10*3/uL Lymphocytes # 2.54 (0.90-5.00) 10*3/uL Monocytes # 1.03 H (0.20-1.00) 10*3/uL Eosinophils # 0.18 (0.04-0.35) 10*3/uL Basophils # 0.05 (0.00-0.10) 10*3/uL Sodium 132 L (137-145) mmol/L Potassium 2.8 L (3.5-5.1) mmol/L Chloride 97 L (98-107) mmol/L Carbon Dioxide 23 (22-30) mmol/L Anion Gap 12 mmol/L BUN 23 H (9-20) mg/dL Creatinine 1.09 (0.66-1.25) mg/dL Est GFR (CKD-EPI)AfAm 72 (>60 ml/min/1.73 sqM) Est GFR (CKD-EPI)NonAf 63 (>60 ml/min/1.73 sqM) Glucose 125 H (74-99) mg/dL Calcium 8.8 (8.4-10.2) mg/dL Total Bilirubin 0.9 (0.2-1.3) mg/dL AST 34 (17-59) U/L ALT 30 (4-49) U/L Alkaline Phosphatase 75 (38-126) U/L Total Protein 6.5 (6.3-8.2) g/dL Albumin 3.9 (3.5-5.0) g/dL Serum Alcohol <10 mg/dL Disposition Clinical Impression: Fall, Rib fractures, Hypokalemia Disposition: HOME SELF-CARE Condition: Stable Instructions (If sedation given, give patient instructions): Rib Fracture (ED) Additional Instructions: Please use the incentive spirometer at least 6 times a day. Wear the lidocaine patch for 12 hours a day and then removed. Take Tylenol as needed for pain control. Follow-up with your primary care doctor within the next 2 to 4 days. Return for any new or worsening symptoms including cough, fevers or worsening shortness of breath Prescriptions: Lidocaine 4% Patch 1 patch TOPICAL DAILY #30 patch Is patient prescribed a controlled substance at d/c from ED?: No Referrals: Epi De MD [Primary Care Provider] - 1-2 days Time of Disposition: 21:26
[2024-10-12 21:42] VITALS: BP 134/62; PULSE 62
== END 2024-10-12 21:41 | disposition home or self-care (01) ==
LOC: EC 18:38
DX: S22.42XA Multiple fractures of ribs, left side, initial encounter for closed fracture (principal); S51.012A Laceration without foreign body of left elbow, initial encounter; E87.6 Hypokalemia; Z87.891 Personal history of nicotine dependence; W01.0XXA Fall on same level from slipping, tripping and stumbling without subsequent striking against object, initial encounter
CPT/HCPCS: 36415; 80053; 85025; 72170; 73080; 71045; 72125; 70450; 71250; 99284; G0480; 80320

== ENCOUNTER 2024-10-27 06:45 | Emergency (ER) | payer MEDICARE, BC ==
[2024-10-27 06:55] VITALS: TEMP 98.8
[2024-10-27 06:57] VITALS: RESP 16
--- NOTE | 2024-10-27 07:37 | ED ---
General Adult HPI - General Chief complaint: Altered Mental Status Stated complaint: AMS Time Seen by Provider: 10/27/24 07:11 Source: EMS Mode of arrival: EMS - History of Present Illness Initial comments: Dictation was produced using [employer] dictation software. please excuse any gr ammatical, word or spelling errors. Chief Complaint: 84-year-old male presents to the emergency department with altered mental status History of Present Illness: Patient is a 84-year-old male who presents with altered mental status. Patient is a poor historian at this time. History present was obtained from nurse who received report from EMS. Patient was allegedly brought into the emergency department by EMS from home after having what was described as erratic behavior. Patient confused and is only alert and oriented x 1. Patient is allegedly at baseline ANO x 4 and able to perform a ctivities of daily living independently. Patient states that he feels cold and is upset that people did not want to move a chair. Nurse reports that patient was seen recently after a fall and was seen here in the ER and was diagnosed with fractured ribs. The ROS documented in this emergency department record has been reviewed and confirmed by me. Those systems with pertinent positive or negative responses have been documented in the HPI. All other systems are other negative and/or noncontributory. - Related Data Home Medications Medication Instructions Recorded Confirmed Ergocalciferol (Vitamin D2) 1,250 mcg PO Q14D 07/23/24 10/27/24 [Drisdol (50,000 Iu)] Tamsulosin [Flomax] 0.4 mg PO HS 07/23/24 10/27/24 Ubidecarenone [Q-Sorb Co Q-10] 200 mg PO DAILY 07/23/24 10/27/24 Vit C/E/Zn/Coppr/Lutein/Zeaxan 1 cap PO DAILY 07/23/24 10/27/24 [Preservision Areds 2 Softgel] Dapagliflozin Propanediol [Farxiga] 10 mg PO DAILY 09/14/24 10/27/24 Baclofen 10 mg PO TID PRN 10/27/24 10/27/24 Metoprolol Tartrate [Lopressor] 25 mg PO BID 10/27/24 10/27/24 Sacubitril/Valsartan [Entresto 49 1 tab PO BID 10/27/24 10/27/24 mg-51 mg Tablet] Previous Rx's Medication Instructions Recorded Apixaban [Eliquis] 2.5 mg PO BID #60 tab 08/02/24 Atorvastatin [Lipitor] 80 mg PO HS #90 tab 08/02/24 Clopidogrel [Plavix] 75 mg PO DAILY #30 tab 08/02/24 Spironolactone [Aldactone] 25 mg PO DAILY #30 tab 08/02/24 Furosemide [Lasix] 40 mg PO BID@0900,1600 30 Days #60 09/17/24 tab Vericiguat [Verquvo] 2.5 mg PO DAILY 90 Days #90 tablet 09/17/24 oxyCODONE-APAP 10-325MG [Percocet 1 tab PO Q4HR PRN 3 Days #18 tab 10/27/24 10-325 mg] Allergies Allergy/AdvReac Type Severity Reaction Status Date / Time No Known Allergies Allergy Verified 10/27/24 10:40 Review of Systems ROS Statement: Those systems with pertinent positive or pertinent negative responses have been documented in the HPI. ROS Other: All systems not noted in ROS Statement are negative. Past Medical History Past Medical History: Coronary Artery Disease (CAD), Heart Failure, Hyperlipidemia, Hypertension, Osteoarthritis (OA), Prostate Disorder Additional Past Medical History / Comment(s): skin cancer, wet mac degeneration with bilateral injections. Previous cataracts, prostate CA with radiation and seeds approx 20 years ago. History of Any Multi-Drug Resistant Organisms: None Reported Past Surgical History: Heart Catheterization With Stent Past Anesthesia/Blood Transfusion Reactions: No Reported Reaction Date of Last Stent Placement:: 07-23-24 Smoking Status: Former smoker Past Alcohol Use History: Daily Past Drug Use History: None Reported General Exam - General Exam Comments Initial Comments: PHYSICAL EXAM: General Impression: Alert and oriented x1, not in acute distress HEENT: Normocephalic atraumatic, extra-ocular movements intact, pupils equal and reactive to light bilaterally, mucous membranes moist. Cardiovascular: Heart regular rate and rhythm Chest: Able to complete full sentences, no retractions, no tachypnea Abdomen: abdomen soft, non-tender, non-distended, no organomegaly Musculoskeletal: Pulses present and equal in all extremities, no peripheral edema Motor: no focal deficits noted Neurological: CN II-XII grossly intact, no focal motor or sensory deficits noted Skin: Intact with no visualized rashes Psych: Normal affect and mood Course Vital Signs 10/27/24 10/27/24 10/27/24 06:49 10:07 11:18 Temperature 98.8 F Pulse Rate 67 64 55 L Respiratory 16 16 16 Rate Blood Pressure 163/56 163/56 163/56 O2 Sat by Pulse 99 94 L Oximetry EKG Findings - EKG Comments: EKG Findings:: My EKG interpretation: Ventricular rate 71, sinus rhythm,. 121, QRS 117, QTc 467. No [place] prolongation, no QTC prolongation, no ST or T-wave changes noted. Overall, this EKG is unremarkable Medical Decision Making - Medical Decision Making Was pt. sent in by a medical professional or institution (, PA, TABLE ASSEMBLER METAL, urgent care, hospital, or longterm...) When possible be specific @ -No Did you speak to anyone other than the patient for history (EMS, parent, family, police, friend...)? What history was obtained from this source @ -No Did you review nursing and triage notes (agree or disagree)? Why? @ -I reviewed and agree with nursing and triage notes Were old charts reviewed (outside hosp., previous admission, EMS record, old EKG, old radiological studies, urgent care reports/EKG's, longterm records)? Report findings @ -No old charts were reviewed Differential Diagnosis (chest pain, altered mental status, abdominal pain women, abdominal pain men, vaginal bleeding, musculoskeletal, weakness, fever, dyspnea, syncope, headache, dizziness, GI bleed, back pain, seizure, CVA, palpatations, mental health)? @ -Differential Altered Mental Status: Hypoglycemia, DKA, hypercapnia, ETOH, overdose, CO poisoning, trauma, myxedema coma, HTN encephalopathy, infection, encephalitis, psychosis, intercranial hemorrhage, hepatic encephalopathy, meningitis, CVA, this is not meant to be an all-inclusive list EKG interpreted by me (3pts min.). @ -See above X-rays interpreted by me (1pt min.). @ -Chest x-ray shows no acute processes CT interpreted by me (1pt min.). @ -CT brain is nonacute U/S interpreted by me (1pt. min.). @ -None done What testing was considered but not performed or refused? (CT, X-rays, U/S, labs)? Why? @ -None What meds were considered but not given or refused? Why? @ -None Was smoking cessation discussed for >3mins.? @ -No Were there social determinants of health that impacted care today? How? (Homelessness, low income, unemployed, alcoholism, drug addiction, transportation, low edu. Level, literacy, decrease access to med. care, assisted, rehab)? @ -No Was there de-escalation of care discussed even if they declined (Discuss DNR or withdrawal of care, Hospice)? DNR status @ -No What co-morbidities impacted this encounter? (DM, HTN, Smoking, COPD, CAD, Cancer, CVA, ARF, Chemo, Hep., AIDS, mental health diagnosis, sleep apnea, morbid obesity)? @ -None Was patient admitted / discharged? Hospital course, mention meds given and route, prescriptions, significant lab abnormalities, going to OR and other pertinent info. @ -84-year-old male presents to the emergency department for altered mental status. Recently suffered multilevel rib fractures. Vital signs upon arrival within acceptable limits. Patient is slightly aggressive however no acute distress. Laboratory evaluation is unremarkable. Urinalysis negative. Imaging studies are negative. Patient given Percocet. Family states that his condition is significant improved. They are comfortable taking patient home with close follow-up with primary care doctor. Did you discuss the management of the patient with other professionals (professionals i.e. , PA, TABLE ASSEMBLER METAL, lab, RT, psych nurse, social worker masters, loft worker apprentice, teacher, quarantine officer, caser in)? Give summary @ -No Was critical care preformed (if so, how long)? @ -No Undiagnosed new problem with uncertain prognosis? @ -No Drug Therapy requiring intensive monitoring for toxicity (Heparin, Nitro, Insulin, Cardizem)? @ -No Were any procedures done? @ -No Diagnosis/symptom? Acute, or Chronic, or Acute on Chronic? Uncomplicated (without systemic symptoms) or Complicated (systemic symptoms)? @ -Altered mental status Side effects of treatment? @ -No Exacerbation, Progression, or Severe Exacerbation? @ -No Poses a threat to life or bodily function? How? (Chest pain, [place], [place], pneumonia, PE, COPD, DKA, ARF, appy, cholecystitis, CVA, Diverticulitis, Homicidal, Suicidal, threat to staff... and all critical care pts) @ -No - Lab Data Result diagrams: 10/27/24 08:00 10/27/24 08:00 Lab Results 10/27/24 10/27/24 10/27/24 Range/Units 08:00 08:00 11:43 WBC 9.55 (4.50-10.00) 10*3/uL RBC 4.00 L (4.40-5.60) 10*6/uL Hgb 11.8 L (13.0-17.0) g/dL Hct 35.0 L (39.6-50.0) % MCV 87.5 (80.0-97.0) fL MCH 29.5 (27.0-32.0) pg MCHC 33.7 (32.0-37.0) g/dL Plt Count 236 (140-440) 10*3/uL MPV 8.7 L (9.5-12.2) fL Immature Gran % (Auto) 0.3 % Neutrophils % 69.9 % Lymphocytes % 15.2 % Monocytes % 13.1 % Eosinophils % 0.9 % Basophils % 0.6 % Immature Gran # 0.03 (0.00-0.04) 10*3/uL Neutrophils # 6.67 (1.80-7.70) 10*3/uL Lymphocytes # 1.45 (0.90-5.00) 10*3/uL Monocytes # 1.25 H (0.20-1.00) 10*3/uL Eosinophils # 0.09 (0.04-0.35) 10*3/uL Basophils # 0.06 (0.00-0.10) 10*3/uL Sodium 138 (137-145) mmol/L Potassium 3.9 (3.5-5.1) mmol/L Chloride 100 (98-107) mmol/L Carbon Dioxide 28 (22-30) mmol/L Anion Gap 10 mmol/L BUN 19 (9-20) mg/dL Creatinine 1.15 (0.66-1.25) mg/dL Est GFR (CKD-EPI)AfAm 68 (>60 ml/min/1.73 sqM) Est GFR (CKD-EPI)NonAf 59 (>60 ml/min/1.73 sqM) Glucose 115 H (74-99) mg/dL Calcium 9.3 (8.4-10.2) mg/dL Magnesium 1.9 (1.6-2.3) mg/dL Total Bilirubin 1.1 (0.2-1.3) mg/dL AST 28 (17-59) U/L ALT 24 (4-49) U/L Alkaline Phosphatase 79 (38-126) U/L Total Protein 6.4 (6.3-8.2) g/dL Albumin 3.8 (3.5-5.0) g/dL Urine Color Colorless Urine Appearance Clear (Clear) Urine pH 6.5 (5.0-8.0) Ur Specific [place] 1.009 (1.001-1.035) Urine Protein Negative (Negative) Urine Glucose (UA) 4+ H (Negative) Urine Ketones Negative (Negative) Urine Blood Trace H (Negative) Urine Nitrite Negative (Negative) Urine Bilirubin Negative (Negative) Urine Urobilinogen <2.0 (<2.0) mg/dL Ur Leukocyte Esterase Negative (Negative) Urine RBC 18 H (0-5) /hpf Urine WBC 6 H (0-5) /hpf Urine Bacteria Rare H (None) /hpf Disposition Clinical Impression: AMS (altered mental status) Disposition: HOME SELF-CARE Condition: Fair Instructions (If sedation given, give patient instructions): Altered Mental Status (ED) Prescriptions: oxyCODONE-APAP 10-325MG [Percocet 10-325 mg] 1 tab PO Q4HR PRN 3 Days #18 tab PRN Reason: Pain Is patient prescribed a controlled substance at d/c from ED?: Yes If prescribed controlled substance>3 days was MAPS reviewed?: Prescribed <3 Days Referrals: Epi De MD [Primary Care Provider] - 1-2 days Time of Disposition: 12:37
[2024-10-27 08:11] LABS: Basophils # (A) 0.06 10*3/uL (0.00-0.10); Basophils % (A) 0.6 %; Eosinophils # (A) 0.09 10*3/uL (0.04-0.35); Eosinophils % (A) 0.9 %; HCT 35.0 % (39.6-50.0); HGB 11.8 g/dL (13.0-17.0); Lymphocytes # (A) 1.45 10*3/uL (0.90-5.00); Lymphocytes % (A) 15.2 %; MCH 29.5 pg (27.0-32.0); MCHC 33.7 g/dL (32.0-37.0); MCV 87.5 fL (80.0-97.0); Monocytes # (A) 1.25 10*3/uL (0.20-1.00); Monocytes % (A) 13.1 %; Neutrophils # (A) 6.67 10*3/uL (1.80-7.70); Neutrophils % (A) 69.9 %; Platelet Count 236 10*3/uL (140-440); RBC 4.00 10*6/uL (4.40-5.60); RDW 15.0 % (11.5-14.5); WBC 9.55 10*3/uL (4.50-10.00)
--- NOTE | 2024-10-27 08:17 | XR ---
EXAMINATION TYPE: XR chest 1V portable DATE OF EXAM: 10/27/2024 8:12 AM COMPARISON: Chest radiographs from 10/12/2024. CLINICAL INDICATION: Male, 84 years old with history of ams, acute "irratic behavior"; [facility] TECHNIQUE: XR chest 1V portable Frontal view of the chest. FINDINGS: Lungs/Pleura: There is no evidence of pleural effusion, focal consolidation, or pneumothorax. Pulmonary vascularity: Unremarkable. Heart/mediastinum: Cardiomediastinal silhouette is unremarkable. Musculoskeletal: No acute osseous pathology. IMPRESSION: No acute cardiopulmonary disease/process. [facility], , 10/27/2024 8:14 AM
[2024-10-27 08:28] LABS: ALT 24 U/L (4-49); AST 28 U/L (17-59); African American GFR (CKD) 68 (>60 ml/min/1.73 sqM); Albumin 3.8 g/dL (3.5-5.0); Alkaline Phosphatase 79 U/L (38-126); Anion Gap 10 mmol/L; Blood Urea Nitrogen 19 mg/dL (9-20); Calcium 9.3 mg/dL (8.4-10.2); Carbon Dioxide 28 mmol/L (22-30); Chloride 100 mmol/L (98-107); Glucose 115 mg/dL (74-99); Magnesium 1.9 mg/dL (1.6-2.3); Non-African American GFR(CKD) 59 (>60 ml/min/1.73 sqM); Potassium 3.9 mmol/L (3.5-5.1); Sodium 138 mmol/L (137-145); Total Protein 6.4 g/dL (6.3-8.2)
[2024-10-27] MEDS: oxyCODONE-APAP 7.5-325MG 1 EACH TAB PO STA (08:38)
--- NOTE | 2024-10-27 08:56 | CT ---
EXAMINATION TYPE: CT brain wo con DATE OF EXAM: 10/27/2024 8:40 AM COMPARISON: 10/12/2024. CLINICAL INDICATION: Male, 84 years old with history of ams, acute "irratic behavior", AMS, Acute "er ratic behavior" TECHNIQUE: Brain: Axial CT images of the brain were obtained with coronal and sagittal reformats created and rev iewed. Contrast used: None. Oral contrast used: None. CT DLP: 2426.5 mGycm, Automated exposure control for dose reduction was used. FINDINGS: Brain: Extra-axial spaces: No abnormal extra-axial fluid collections. Ventricular system: Dilatation in proportion to cerebral atrophy. Cerebral parenchyma: Cerebral atrophy. No acute intraparenchymal hemorrhage or mass effect. The day -white junction is well differentiated. Cerebellum: Unremarkable. Mass effect: No evidence of midline shift. Intracranial vasculature: Atherosclerotic calcifications of the intracranial vessels. Soft tissues: Normal. Calvarium/osseous structures: No depressed skull fracture. Paranasal sinuses and mastoid air cells: Mild scattered paranasal sinus disease. Visualized orbits: Bilateral aphakia IMPRESSION: 1. No acute intracranial process. 2. Nonspecific white matter changes, likely secondary to chronic small vessel ischemic disease. [facility], , 10/27/2024 8:54 AM
[2024-10-27 12:03] LABS: Bacteria,Urine Rare /hpf; Bilirubin,Urine Negative (Negative); Blood,Urine Trace (Negative); Color,Urine Colorless; Glucose,Urine (UA) 4+ (Negative); Ketones,Urine Negative (Negative); Leukocyte Esterase,Urine Negative (Negative); Nitrite,Urine Negative (Negative); PH, Urine 6.5 (5.0-8.0); Protein,Urine Negative (Negative); RBC,Urine 18 /hpf (0-5); Specific Gravity,Urine 1.009 (1.001-1.035); Urobilinogen,Urine <2.0 mg/dL (<2.0); WBC,Urine 6 /hpf (0-5)
[2024-10-27 12:56] VITALS: BP 134/59; PULSE 57
== END 2024-10-27 13:34 | disposition home or self-care (01) ==
LOC: EC 06:45
DX: R41.82 Altered mental status, unspecified (principal); Z87.891 Personal history of nicotine dependence; W19.XXXA Unspecified fall, initial encounter
CPT/HCPCS: 36415; 70450; 71045; 80053; 81001; 83735; 85025; 93005; 99285